=== PATIENT | female | born 1960 | race Caucasian/White ===

== ENCOUNTER 2019-03-19 10:19 | Inpatient (IN) ==
--- NOTE | 2019-03-19 11:19 | Emergency Department Note ---
Disposition Clinical Impression: Cellulitis of left foot Disposition: Admitted As Inpatient Condition: Fair Referrals: Bernardino Burkett MD [Primary Care Provider] - Forms: ED Satisfaction Letter Time of Disposition: 14:43 Extremity Problem HPI - General Chief complaint: ED Extremity Problem,Nontraumatic Stated complaint: Cellulitis L foot Time Seen by Provider: 03/19/19 10:58 Source: patient Limitations: no limitations Nursing Notes Reviewed: Yes Vital Signs Reviewed: Yes - History of Present Illness HPI Narrative: Patient is a 59-year-old female with past medical history of diabetes, previous left lower extremity TMA, cardiovascular disease. She presents from her skylights assembler Dr. Sloan's office where she was being seen regarding an open wound to her previous TMA site on her left lower extremity. He was concern for developing infection and sent her over to emergency department to be started on IV antibiotics and admitted to the hospital for tentative surgical debridement tomorrow. The patient states she noticed new redness around the wound today. She denies any pain at the site but states she does still have full sensation there. She denies fever, chills, lightheadedness, nausea or vomiting. She states she has been hospitalized for sepsis secondary to infection in this extremity before. Pain Scale: 0 - Related Data Home Medications Medication Instructions Recorded Confirmed Aspirin [Lo-Dose Aspirin EC] 81 mg PO DAILY 10/13/18 03/19/19 Insulin ASPART [Novolog Flexpen] 10 unit SQ TID 10/13/18 03/19/19 Insulin Glargine,Hum.rec.anlog 20 unit SQ HS 10/13/18 03/19/19 [Lantus Solostar] Allergies Allergy/AdvReac Type Severity Reaction Status Date / Time No Known Allergies Allergy Verified 10/13/18 10:19 All systems ED: reviewed and negative except as stated. Review of Systems: As Per HPI Past Medical History - Past Medical History Medical history: Reports: diabetes, hyperlipidemia, hypertension Surgical history: Reports: , cholecystectomy Psychiatric history: Reports: anxiety, depression - Social History Smoking Status: Never smoker Smokeless Tobacco Status: No Alcohol use: Reports: none Drug use: Reports: none Physical Exam - General Limitations: no limitations General appearance: alert, in no apparent distress - Head Head exam: atraumatic, normocephalic - Eye Eye exam: Present: normal appearance, PERRL, EOMI - Neck Neck exam: Present: normal inspection, full ROM - Chest Chest inspection: Present: normal inspection, symmetric chest wall rise - Respiratory Respiratory exam: Present: normal lung sounds bilaterally - Cardiovascular Cardiovascular exam: Present: regular rate, normal rhythm, normal heart sounds - Abdominal Exam Abdominal exam: Present: soft, Non-Tender - Expanded Lower Extremity Exam Lower leg exam: Present: normal inspection, tenderness (Mild tenderness to palpation to the left lower leg). Absent: swelling, deformity, erythema Ankle exam: Present: normal inspection, full ROM. Absent: tenderness, swelling, erythema Foot/toe exam: Present: other (The right lower extremity and foot is normal in appearance. The left lower extremity is status post transmetatarsal amputation to all 5 digits. There is a quarter-sized callus built up at the distal lateral aspect. There is a 1 cm a 1 cm area on the dorsal distal aspect of the foot with soft tissue extruding and several centimeters of surrounding erythema. The area is not tender to palpation but does have intact deep and light touch sensation intact. There is some fluctuance under the area of erythema.) Gait: not tested/not observed - Neurological Exam Neurological exam: Present: alert, oriented X3 - Skin Skin exam: Present: warm, dry Course Course Narrative: Patient presented with skin findings and wound at site of previous TMA that are concerning for cellulitis. We will order CBC, BMP, blood cultures, lactic acid and start with 1 L normal saline bolus. Once labs are back and renal function is determined anticipate CT of the left foot with or without contrast. We will then contact patient's skylights assembler Dr. Sloan to coordinate plan of care. - Reevaluation(s) Reevaluation #1: Spoke with the patient's skylights assembler to requested x-ray of the foot and initiation of vancomycin and Zosyn. CBC negative, BMP with mild hyponatremia which we will supplement with normal saline. Time: 12:40 Vital Signs Temperature 98.2 F 03/19/19 10:31 Pulse Rate 79 03/19/19 10:31 Respiratory Rate 18 03/19/19 10:31 Blood Pressure 174/88 03/19/19 10:31 O2 Sat by Pulse Oximetry 98 03/19/19 10:31 Temperature 98.2 F 03/19/19 10:31 Pulse Rate 75 03/19/19 12:12 Respiratory Rate 16 03/19/19 12:12 Blood Pressure 152/72 03/19/19 12:12 O2 Sat by Pulse Oximetry 99 03/19/19 12:12 Oxygen Delivery Oxygen Delivery Room Air Extremity Problem, Nontraumati - MDM Narrative Medical decision making narrative: Patient presented with concern for cellulitis, CBC negative, BMP with mild hyponatremia. X-ray of the left foot demonstrating soft tissue swelling and cortical lucencies possibly indicating cellulitis or osteomyelitis with MRI follow-up recommended. Based on patient's presentation and referral to emergency department by skylights assembler with tentative plan for surgery tomorrow admission to the hospital with initiation of IV antibiotics is the best plan for this patient. Discussed with the hospitalist to agree to admit the patient. - Lab Data Lab results reviewed: Yes I reviewed the patient's lab results. Result diagrams: 03/19/19 11:59 03/19/19 11:59 Lab Results 03/19/19 03/19/19 03/19/19 Range/Units 11:59 11:59 11:59 WBC 6.3 (4.3-11.1) K/mcL RBC 4.19 (3.82-4.97) M/mcL Hgb 12.4 (11.5-15.4) g/dL Hct 36.7 (35.3-44.9) % MCV 87.6 (83.0-100.0) fL MCH 29.6 (28.0-33.3) pg MCHC 33.8 (31.6-35.5) g/dL RDW 11.9 (11.5-14.5) % Plt Count 183 (140-400) K/mcL MPV 10.4 (9.4-12.4) fL Immature Gran % 0.5 (0-4) % Seg Neutrophils % 69.2 % Lymphocytes % 20.2 % Monocytes % 8.3 % Eosinophils % 1.3 % Basophils % 0.5 % Neutrophils # 4.4 (1.6-8.9) K/mcL Lymphocytes # 1.3 (0.6-4.6) K/mcL Monocytes # 0.5 (0.0-1.3) K/mcL Eosinophils # 0.1 (0.0-0.6) K/mcL Basophils # 0.0 (0.0-0.2) K/mcL Sodium 133 L (136-145) mEq/L Potassium 4.2 (3.5-5.1) mEq/L Chloride 100 (98-107) mEq/L Carbon Dioxide 26 (23-29) mEq/L BUN 25 H (6-20) mg/dL Creatinine 1.09 (0.60-1.20) mg/dL Est GFR ( Amer) > 60 (> 60) Est GFR (Non-Af Amer) 52 L (> 60) BUN/Creatinine Ratio 23 (6-26) Glucose 382 H (70-105) mg/dL Calculated Osmolality 296 (280-300) Lactic Acid 0.9 (0.5-2.2) mmol/L Calcium 9.7 (8.6-10.3) mg/dL - Radiology Data Radiology results reviewed: Yes I reviewed the patient's radiology results. Foot X-Ray 03/19/19 12:00 IMPRESSION: Worsening soft tissue swelling of the stump of the midfoot amputation with lucencies and cortical regularity involving the medial cuneiform suggesting possible osteomyelitis with cellulitis. MRI would better assess scratch the MRI would be more sensitive. D/ / Khari Aj MD / Khari Aj MD Interpreting Provider: Khari Aj MD Attestation Statement - Attestation Attestation: I, Ranjan Landeros DO, examined this patient [id number] and my medical decision-making was reviewed with Ozzy Workman PGY-1, Resident Physician. I agree with the documented findings, disposition and treatment plan as described except to the extent set forth below. I personally supervised and was present for the thomas/critical portions of the procedures completed by the resident documented below. Please see my progress notes for details.
[2019-03-19] MEDS ORDERED: 0.9 % Sodium Chloride 1,000 ML IVC ONE (11:32)
--- NOTE | 2019-03-19 11:42 | Emergency Department Note ---
Disposition Clinical Impression: Cellulitis of left foot Disposition: Admitted As Inpatient Condition: Fair Referrals: Bernardino Burkett MD [Primary Care Provider] - Forms: ED Satisfaction Letter Time of Disposition: 13:44 General Adult HPI - General Chief complaint: ED Extremity Problem,Nontraumatic Stated complaint: Cellulitis L foot Time Seen by Provider: 03/19/19 10:58 Source: patient Limitations: no limitations - History of Present Illness Pain Scale: 0 - Related Data Home Medications Medication Instructions Recorded Confirmed Aspirin [Lo-Dose Aspirin EC] 81 mg PO DAILY 10/13/18 03/19/19 Insulin ASPART [Novolog Flexpen] 10 unit SQ TID 10/13/18 03/19/19 Insulin Glargine,Hum.rec.anlog 20 unit SQ HS 10/13/18 03/19/19 [Lantus Solostar] Allergies Allergy/AdvReac Type Severity Reaction Status Date / Time No Known Allergies Allergy Verified 10/13/18 10:19 Past Medical History - Past Medical History Medical history: Reports: diabetes, hyperlipidemia, hypertension Surgical history: Reports: , cholecystectomy Psychiatric history: Reports: anxiety, depression - Social History Smoking Status: Never smoker Smokeless Tobacco Status: No Alcohol use: Reports: none Drug use: Reports: none Physical Exam - General Limitations: no limitations General appearance: alert, in no apparent distress Course Vital Signs Temperature 98.2 F 03/19/19 10:31 Pulse Rate 79 03/19/19 10:31 Respiratory Rate 18 03/19/19 10:31 Blood Pressure 174/88 03/19/19 10:31 O2 Sat by Pulse Oximetry 98 03/19/19 10:31 Temperature 98.2 F 03/19/19 10:31 Pulse Rate 75 03/19/19 12:12 Respiratory Rate 16 03/19/19 12:12 Blood Pressure 152/72 03/19/19 12:12 O2 Sat by Pulse Oximetry 99 03/19/19 12:12 Oxygen Delivery Oxygen Delivery Room Air Medical Decision Making - Lab Data Result diagrams: 03/19/19 11:59 03/19/19 11:59 Lab Results 03/19/19 03/19/19 03/19/19 Range/Units 11:59 11:59 11:59 WBC 6.3 (4.3-11.1) K/mcL RBC 4.19 (3.82-4.97) M/mcL Hgb 12.4 (11.5-15.4) g/dL Hct 36.7 (35.3-44.9) % MCV 87.6 (83.0-100.0) fL MCH 29.6 (28.0-33.3) pg MCHC 33.8 (31.6-35.5) g/dL RDW 11.9 (11.5-14.5) % Plt Count 183 (140-400) K/mcL MPV 10.4 (9.4-12.4) fL Immature Gran % 0.5 (0-4) % Seg Neutrophils % 69.2 % Lymphocytes % 20.2 % Monocytes % 8.3 % Eosinophils % 1.3 % Basophils % 0.5 % Neutrophils # 4.4 (1.6-8.9) K/mcL Lymphocytes # 1.3 (0.6-4.6) K/mcL Monocytes # 0.5 (0.0-1.3) K/mcL Eosinophils # 0.1 (0.0-0.6) K/mcL Basophils # 0.0 (0.0-0.2) K/mcL Sodium 133 L (136-145) mEq/L Potassium 4.2 (3.5-5.1) mEq/L Chloride 100 (98-107) mEq/L Carbon Dioxide 26 (23-29) mEq/L BUN 25 H (6-20) mg/dL Creatinine 1.09 (0.60-1.20) mg/dL Est GFR ( Amer) > 60 (> 60) Est GFR (Non-Af Amer) 52 L (> 60) BUN/Creatinine Ratio 23 (6-26) Glucose 382 H (70-105) mg/dL Calculated Osmolality 296 (280-300) Lactic Acid 0.9 (0.5-2.2) mmol/L Calcium 9.7 (8.6-10.3) mg/dL Attestation Statement - Attestation Attestation: I, Ranjan Landeros DO, examined this patient [id number] and my medical decision-making was reviewed with Ozzy Workman PGY-1, Resident Physician. I agree with the documented findings, disposition and treatment plan as described except to the extent set forth below. I personally supervised and was present for the thomas/critical portions of the procedures completed by the resident documented below. Please see my progress notes for details. 59-year-old female presents emergency room for evaluation of left foot infection. She was seen by her caterpillar tractor operator who this morning and recommended to come the emergency room for evaluation and admission for surgical intervention. She has had a partial foot amputation in the past at the midfoot. She has no toes left on the left foot. She has good pulses in the bilateral feet. She is currently denying fevers chills nausea vomiting or diarrhea. Does not have any headache or vision change. She has not fallen or injured herself. She denies any recent surgeries or surgical intervention. She has not been on any recent antibiotics. She is up-to-date on her tetanus. Vital signs are stable. Patient is alert she is oriented. Lungs are clear heart is regular. Extremities are normal outside the bilateral feet. Right lower sternal he has good pulses but very poor foot hygiene. There is no cracks ulcers or signs of deterioration the skin on the right foot. The left foot has anterior skin deterioration from what appears to be internal pressure from a bone as well as a lateral foot ulcer. She has no redness that extends away from the previous surgical site at this time. She has full range of motion the hips knees and ankles otherwise is normal. Patient will have labs including CBC chemistry ESR CRP along with CT imaging of the foot. Pulses are symmetrical and intact. She has normal sensation at least at baseline for her. Imaging labs and antibiotics will be ordered and resulted in an admission process to be established. Patient is otherwise clinically stable. Consultation with Dr. Dobbins will be completed and admission process to be established. See detailed documentation the physical exam, medical intervention, medical decision-making and disposition the resident physician's note. 1245 Patient has progressive swelling to the midfoot on x-ray. Labs otherwise unremarkable outside of the sodium at 133. No other immediate intervention is required. Patient will be discussed with the hospitals for admission MRI will be completed in the inpatient setting considering the patient is scheduled for surgery tomorrow. No other acute concerns or issues at this point. Admission process to be established. 1325 Patient was discussed with the hospitalist Dr. Mckee. Detailed review the presentation the symptoms and the recommendations from the caterpillar tractor operator were discussed at length. No other acute concerns or issues noted at this point. Patient is otherwise clinically stable. Patient will be monitored here in the emergency department as the admission process is completed for cellulitis to the left lower extremity requiring surgery.
[2019-03-19] MEDS ORDERED: Isovue-370 500 ML BOTTLE IVP ONE (11:43)
[2019-03-19 12:14] LABS: Basophils % 0.5 %; Eosinophils # 0.1 K/mcL (0.0-0.6); Eosinophils % 1.3 %; Hematocrit 36.7 % (35.3-44.9); Hemoglobin 12.4 g/dL (11.5-15.4); Immature Granulocytes % 0.5 % (0-4); Lymphocytes # 1.3 K/mcL (0.6-4.6); Lymphocytes % 20.2 %; Mean Corpuscular HGB Conc 33.8 g/dL (31.6-35.5); Mean Corpuscular Hemoglobin 29.6 pg (28.0-33.3); Mean Corpuscular Volume 87.6 fL (83.0-100.0); Mean Platelet Volume 10.4 fL (9.4-12.4); Monocytes # 0.5 K/mcL (0.0-1.3); Monocytes % 8.3 %; Neutrophils # 4.4 K/mcL (1.6-8.9); Platelet Count 183 K/mcL (140-400); Red Blood Count 4.19 M/mcL (3.82-4.97); Red Cell Distribution Width 11.9 % (11.5-14.5); Segmented Neutrophils % 69.2 %
[2019-03-19] MEDS ORDERED: Piperacillin/Tazobactam 3.375 GM in 0.9 % Sodium Chloride Mini Bag 100 ML IVPB ONE (12:19)
[2019-03-19 12:33] LABS: BUN/Creatinine Ratio 23 (6-26); Blood Urea Nitrogen 25 mg/dL (6-20); Calcium 9.7 mg/dL (8.6-10.3); Carbon Dioxide 26 mEq/L (23-29); Chloride 100 mEq/L (98-107); Glucose 382 mg/dL (70-105); Osmolality,Calculated 296 (280-300); Potassium 4.2 mEq/L (3.5-5.1); Sodium 133 mEq/L (136-145); eGFR For Non-African Americans 52 (> 60)
[2019-03-19] MEDS ORDERED: Gadolinium Contrast Agent (WT Based) IV PRN (13:28)
[2019-03-19] MEDS ORDERED: Acetaminophen 325 MG TABLET PO PRN (15:01)
[2019-03-19] MEDS ORDERED: *HR* HYDROcodone/Acet 5/325 mg TABLET PO PRN (15:01)
[2019-03-19] MEDS ORDERED: Naloxone 0.4 MG/ML INJ IVP PRN (15:01)
[2019-03-19] MEDS ORDERED: Ondansetron ODT 4 MG TAB.RAPDIS SL PRN (15:01)
[2019-03-19] MEDS ORDERED: Dextrose Gel 15 GM/37.5 ML TUBE PO PRN ×2 (15:06)
[2019-03-19] MEDS ORDERED: *HR* Dextrose 50 % in Water (Syg) 50 ML SYRINGE IVP PRN (15:06)
[2019-03-19] MEDS ORDERED: D5% in Water 1,000 ML IVC PRN (15:06)
--- NOTE | 2019-03-19 15:26 | Internal Med History&Physical ---
Date of Encounter: 03/19/19 Time of Encounter: 15:22 Internal Medicine - H&P: HPI Chief complaint: Left foot abscess Admitted From: Emergency Dept Plans for Post Hospital Care: Home History of present illness: Ms. Amaya is a 59 year old female with known past medical history of type II diabetes, recurrent foot ulcers with s/p left lower extremity TMA, who recently had abnormal stress test found to have during recent pre op work up pt who follows with painting contractor Dr. Sloan for her Left foot ulcer, now she was sent our ER from Dr. Sloan's office since he was concerned baout foot abscess and possible osteomyelitis. Here in the ED her MRI of Foot showed Cellulitis of the soft tissue stump with abscesses along the distal aspect of the soft tissue stump, the largest measuring 2.5 x 1.3 x 1.2 cm. The smaller abscess measuring 5 x 5 x 9 mm appears to drain to the skin surface. She denied any CP . SOB. Denied any Foot pain. Past Med Surg Social Fam HX - Past Medical History Medical history: diabetes, hyperlipidemia, hypertension Psychiatric history: anxiety, depression - Past Surgical History Surgical History: , cholecystectomy Additional surgical history: toes amputated to left foot (L transmet amputation); L ear surgery - Social History Smoking Status: Never smoker Smokeless Tobacco Status: No Alcohol use: none Drug use: none - Family History Mother Living Status: Hx Family Endocrine Disorder: No (Diabetes.) Brother Living Status: Still Living Hx Family Endocrine Disorder: Yes (Diabetes) Maternal Grandfather Living Status: Hx Family Cardiac Disorders: Yes (HTN) Hx Family Endocrine Disorder: Yes (Diabetes) Internal Medicine - H&P: Meds Aspirin [Lo-Dose Aspirin EC] 81 mg PO DAILY 10/13/18 [History] Insulin ASPART [Novolog Flexpen] 10 unit SQ TID 10/13/18 [History] Insulin Glargine,Hum.rec.anlog [Lantus Solostar] 20 unit SQ HS 10/13/18 [History] Allergy/AdvReac Type Severity Reaction Status Date / Time No Known Allergies Allergy Verified 10/13/18 10:19 All Systems PM: A 10-system review of systems was performed and is negative for pertinent findings except as documented above in the HPI. Review of systems: All the systems are reviewed everything is benign except the systems and symptoms I mentioned in the history of present illness - Constitutional Vitals: Temp Pulse Resp BP Pulse Ox 98.2 F 75 16 152/72 99 03/19/19 10:31 03/19/19 12:12 03/19/19 12:12 03/19/19 12:12 03/19/19 12:12 General appearance: Present: cooperative, A&O X 3, no acute distress, answers questions appropriately Exam: a - Head Head exam: Present: atraumatic, normal inspection - Neck Neck exam general surgery: Present: supple - Respiratory Respiratory exam: Present: decreased breath sounds. Absent: rales, respiratory distress, rhonchi, wheezes - Cardiovascular Cardiovascular exam: Present: RRR, +S1, +S2. Absent: tachycardia - GI/Abdominal GI/Abdominal exam: Present: normal bowel sounds, soft. Absent: rebound, rigid, tenderness - Extremities Exam Extremities exam: Present: pedal edema. Absent: calf tenderness, tenderness Additional comments: Moderate swelling, erythema with no open wound noticed over Leftt foot stump on lateral side. No ulcers noticed over Rt leg - Back Exam Back exam: Absent: CVA tenderness (L), CVA tenderness (R) - Neurological Exam Neurological exam: Present: alert, oriented X3 - Psychiatric Psychiatric exam: Present: normal affect, normal mood - Skin Skin exam: Absent: rash Internal Med - H&P Results - Labs CBC & Chem 7: 03/19/19 11:59 03/19/19 11:59 Labs: Short CBC 03/19/19 Range/Units 11:59 WBC 6.3 (4.3-11.1) K/mcL Hgb 12.4 (11.5-15.4) g/dL Hct 36.7 (35.3-44.9) % Plt Count 183 (140-400) K/mcL Neutrophils # 4.4 (1.6-8.9) K/mcL BMP 03/19/19 11:59 Sodium 133 L Potassium 4.2 Chloride 100 Carbon Dioxide 26 BUN 25 H Creatinine 1.09 Glucose 382 H Calcium 9.7 - Impressions ITS Impressions Foot X-Ray 03/19/19 12:00 IMPRESSION: Worsening soft tissue swelling of the stump of the midfoot amputation with lucencies and cortical regularity involving the medial cuneiform suggesting possible osteomyelitis with cellulitis. MRI would better assess scratch the MRI would be more sensitive. D/ / Khari Aj MD / Khari Aj MD Interpreting Provider: Khari Aj MD Foot MRI 03/19/19 13:28 IMPRESSION: Postsurgical changes status post amputation of the forefoot at the level of the tarsometatarsal articulations. Cellulitis of the soft tissue stump with abscesses along the distal aspect of the soft tissue stump, the largest measuring 2.5 x 1.3 x 1.2 cm. The smaller abscess measuring 5 x 5 x 9 mm appears to drain to the skin surface. Findings consistent with osteomyelitis of the medial cuneiform, intermediate cuneiform and navicular bone with erosive changes and cortical destruction of the medial cuneiform bone. D/ / 03/19/2019 14:55:58 Khari Aj MD / [facility] Interpreting Provider: Khari Aj MD - Assessment and Plan (1) Osteomyelitis of left foot Current Visit: Yes Status: Acute Assessment and plan: Reviewed MRI of Foot showed : Cellulitis of the soft tissue stump with abscesses along the distal aspect of the soft tissue stump, the largest measuring 2.5 x 1.3 x 1.2 cm. The smaller abscess measuring 5 x 5 x 9 mm appears to drain to the skin surface. Concerning for osteomyelitis Electric Razor Mechanic consulted..Possible OR in AM She did have abnormal stress test recently Consulted Cardiology for card clearance Check ESR and CRP on broad spec abx Zosyn and Vanc Qualifiers: Osteomyelitis type: unspecified type Qualified Code(s): M86.9 - Osteomyel itis, unspecified (2) Foot abscess, left Current Visit: Yes Status: Acute (3) Cellulitis of left foot Current Visit: Yes Status: Acute (4) Abnormal stress test Current Visit: Yes Status: Acute Assessment and plan: Reviewed recent stress test done as an out pt on 03/05/19 Large sized, moderate to severe intensity, primarily fixed inferior, inferolateral, and inferoseptal perfusion defect suggestive of a prior infarct. There is mild mandy-infarct ischemia involving the inferior and inferolateral segments Consulted card for further follow up NPO after mid night EKG now (5) Diabetes Current Visit: No Status: Acute Assessment and plan: on ISS and Levemir ADA diet cont home regimen Lispro 10 U TID Qualifiers: Diabetes mellitus type: type 2 Diabetes mellitus m[facility] insulin use: with remote computer terminal operator use Diabetes mellitus complication status: with skin complications Diabetes mellitus complication detail: with foot ulcer Qualified Code(s): E11.621 - Type 2 diabetes mellitus with foot ulcer; L97.509 - Non-pressure chronic ulcer of other part of unspecified foot with unspecified severity; Z79.4 - intermodal owner operator truck driver (current) use of insulin - Time Spent With Patient Total time spent is greater than 50% in coordination of care (as documented) at patient's floor/unit and/or counseling patient:
[2019-03-19 18:06] LABS: Estimated Average Glucose 335 mg/dl; Hemoglobin A1C 13.3 %
[2019-03-19] MEDS: Piperacillin/Tazobactam 3.375 GM in 0.9 % Sodium Chloride Mini Bag 100 ML IVP SCH (19:10)
[2019-03-19] MEDS: *HR* Heparin 5,000 UNIT/ML VIAL SQ SCH (19:11)
[2019-03-19] MEDS: Insulin LISPRO 300 UNITS/3 ML VIAL SQ SCH ×3 (19:22→21:31)
--- NOTE | 2019-03-19 20:39 | Anesthesia Evaluation PreOp ---
Date of Encounter: 03/19/19 Time of Encounter: 20:37 - Past History Planned Operation: I&D L-foot Cardiac History: ME (NSTEMI 10/2018 - Pt encouraged to have Cardiac work up at that time but Pt was nervous and wanted to get it performed as an Outpt. Stess test ultimately performed 03/05/2019 revealed decreased LVEF from approximately 50% then to 39% now. Pt does not demonstrate full understanding of the nature of her Coronary disease or risk factors.), HTN (Denies), Hyperlipidemia (Denies) Pulmonary History: Denies Any Significant HX BRIM PRESSER History: Other (Anxiety/Depression) Other Medical History: Diabetes Type II (Uncontrolled/Poorly controlled DM) Anesthesia History: No Prior Anesthetic Complications, Past Anesthesia (C- section, Hanny, L-foot TransMetatarsal Amputation, L-ear surgery) Alcohol Use: none Drug use: none Medications and Allergies Aspirin [Lo-Dose Aspirin EC] 81 mg PO DAILY 10/13/18 [History] Insulin ASPART [Novolog Flexpen] 10 unit SQ TID 10/13/18 [History] Insulin Glargine,Hum.rec.anlog [Lantus Solostar] 20 unit SQ HS 10/13/18 [History] Allergy/AdvReac Type Severity Reaction Status Date / Time No Known Allergies Allergy Verified 10/13/18 10:19 - Meds/Allergy Pre-op Review Medications Reviewed: Yes Allergies Reviewed: Yes Beta Blockers on Current Med List: No Anesthesia Results - Labs 03/19/19 11:59 03/19/19 11:59 Laboratory Tests Laboratory Tests 03/19/19 11:59 Est Mean Plasma Glucose 335 Hemoglobin A1c 13.3 H 03/19/19 11:59 Est GFR (Non-Af Amer) 52 L Impressions Foot X-Ray 03/19/19 12:00 IMPRESSION: Worsening soft tissue swelling of the stump of the midfoot amputation with lucencies and cortical regularity involving the medial cuneiform suggesting possible osteomyelitis with cellulitis. MRI would better assess scratch the MRI would be more sensitive. D/ / Khari Aj MD / Khari Aj MD Interpreting Provider: Khari Aj MD Foot MRI 03/19/19 13:28 IMPRESSION: Postsurgical changes status post amputation of the forefoot at the level of the tarsometatarsal articulations. Cellulitis of the soft tissue stump with abscesses along the distal aspect of the soft tissue stump, the largest measuring 2.5 x 1.3 x 1.2 cm. The smaller abscess measuring 5 x 5 x 9 mm appears to drain to the skin surface. Findings consistent with osteomyelitis of the medial cuneiform, intermediate cuneiform and navicular bone with erosive changes and cortical destruction of the medial cuneiform bone. D/ / 03/19/2019 14:55:58 Khari Aj MD / [facility] Interpreting Provider: Khari Aj MD Laboratory Results - Imaging EKG: report reviewed (84bpm - SINUS RHYTHM POSSIBLE LEFT ATRIAL ENLARGEMENT INFERIOR MYOCARDIAL INFARCTION, OF INDETERMINATE AGE Electronically Signed On 10-15-2018 21:19:19 EST by Femi Ferraro) Additional studies: Nuclear Stress 03/05/2019 Impression: Pharmacologic stress ECG is negative for ischemia at level of heart rate achieved. Gated EF = 39%. The left ventricle is dilated. LVEDV = 153 mL. Large sized, moderate to severe intensity, primarily fixed inferior, inferolateral, and inferoseptal perfusion defect suggestive of a prior infarct. There is mild mandy-infarct ischemia involving the inferior and inferolateral segments, SDS 5. Medium to large sized, severe intensity to absent perfusion defect involving the apical segments and apex suggestive of a prior infarct. Findings suggests obstructive multi-vessel CAD. Anesthesia Exam Vital Signs Temp Pulse Resp BP Pulse Ox 03/19/19 19:40 98.4 F 85 18 151/82 95 03/19/19 17:35 98.1 F 80 21 164/89 99 03/19/19 15:56 88 145/119 03/19/19 12:12 75 16 152/72 99 03/19/19 10:31 98.2 F 79 18 174/88 98 Intake and Output 03/19/19 03/19/19 03/19/19 07:59 15:59 23:59 Intake Total 1350 / 1470 120 / 1470 Balance 1350 / 1470 120 / 1470 Intake: IV Fluids 1350 / 1350 0.9 % Sodium Chloride 1,000 ML 1000 / 1000 @ 999 mls/hr IVC .Q1H1M ONE Rx# :[id number] Zosyn 3.375 GM In 0.9 % Sodium 100 / 100 Chloride (Mini-Bag +) 100 ML @ 25 mls/hr IVPB ONCE ONE Rx#: [id number] Vancocin 1,250 MG In 0.9 % 250 / 250 Sodium Chloride 250 ML @ 166.67 mls/hr IVPB Q12H SUDHIR Rx#: [id number] Oral 120 / 120 Other: Meal Dinner Percent of Meal Consumed 25% Weight 88.904 kg 97.7 kg Blood Glucose* 458 Patient Weight 03/19/19 23:59 Weight 97.7 kg Height: 5'3" Weight: 215# BMI = 38 NPO (# of Hours): MNoc - HEENT Pupil (Motor): Pupils equal, EOMI Mallampati: III Teeth: Missing, Poor dentition Oral Opening: Greater than 3 - BRIM PRESSER LOC: Oriented BRIM PRESSER Motor: Normal RUE, Normal LUE, Normal RLE, Normal LLE, Normal Face BRIM PRESSER Sensory: Normal: RUE, LUE, RLE, LLE, Face - Cardiac Rhythm: Regular Murmur: None - Pulmonary Breath Sounds: bilateral Clear Respiratory Effort: Symmetrical Anesthesia Assess/Plan ASA Score: 4 (Obesity/BmI = 38, Uncontrolled DM) Level of consciousness: Cooperative, Oriented Anesthetic Plan: General (Pt prefers to NOT have GA if possible. She prefers to have only sedation if possible.), MAC Monitoring Plan: Standard Monitors Recovery Plan: PACU Anes Supervising Prov Stmt: Pt seen/evaluated, R&B Discussed, questions answered and consent obtained. Valeria Marroquin MD
[2019-03-19] MEDS: Insulin DETEMIR 100 UNIT/ML X5UNITS SQ SCH (21:31)
[2019-03-20] MEDS: Piperacillin/Tazobactam 3.375 GM in 0.9 % Sodium Chloride Mini Bag 100 ML IVP SCH ×3 (03:07→17:35)
[2019-03-20] MEDS: *HR* Heparin 5,000 UNIT/ML VIAL SQ SCH (05:54)
[2019-03-20] MEDS ORDERED: Vancomycin 1,000 MG, Sodium Chloride IRRigation 1,000 ML IR ONE (06:00)
[2019-03-20 07:15] LABS: Basophils % 0.4 %; Eosinophils # 0.2 K/mcL (0.0-0.6); Hematocrit 33.1 % (35.3-44.9); Hemoglobin 11.2 g/dL (11.5-15.4); Immature Granulocytes % 0.4 % (0-4); Lymphocytes # 0.8 K/mcL (0.6-4.6); Lymphocytes % 15.3 %; Mean Corpuscular HGB Conc 33.8 g/dL (31.6-35.5); Mean Corpuscular Hemoglobin 29.2 pg (28.0-33.3); Mean Corpuscular Volume 86.2 fL (83.0-100.0); Mean Platelet Volume 10.1 fL (9.4-12.4); Monocytes # 0.5 K/mcL (0.0-1.3); Monocytes % 10.8 %; Neutrophils # 3.5 K/mcL (1.6-8.9); Platelet Count 155 K/mcL (140-400); Red Blood Count 3.84 M/mcL (3.82-4.97); Segmented Neutrophils % 70.1 %
--- NOTE | 2019-03-20 08:47 | Podiatry Consult Note ---
Date of Encounter: 03/20/19 Time of Encounter: 08:43 Assessment and Plan (1) Foot abscess, left Current visit: Yes Status: Acute Assessment: Perez grade 2 ulceration distal TMA Erythema noted to surrounding tissue, warm to touch, foul odor noted Maceration noted to periwound area DTI noted to medial aspect of TMA WBC 5.0, afebrile, ESR 63, patient does not appear to have symptoms of sepsis MRI showed abscesses measuring 2.5 x 1.3 x 1.2 cm and 5 x 5 x 9 mm Plan: Keep NPO Cardiology consulted for preop clearance Plan for OR this evening or tomorrow, will discuss with surgeon Cleansed with 0.9 NS Painted maceration with betadine, covered with 4x4 dry gauze, kerlix, and secured with medipore tape Impression: MR/MR foot LT wo con IMPRESSION: Postsurgical changes status post amputation of the forefoot at the level of the tarsometatarsal articulations. Cellulitis of the soft tissue stump with abscesses along the distal aspect of the soft tissue stump, the largest measuring 2.5 x 1.3 x 1.2 cm. The smaller abscess measuring 5 x 5 x 9 mm appears to drain to the skin surface. Findings consistent with osteomyelitis of the medial cuneiform, intermediate cuneiform and navicular bone with erosive changes and cortical destruction of the medial cuneiform bone. D/ / 03/19/2019 14:55:58 Khari Aj MD / [facility] Interpreting Provider: Khari Aj MD History of Present Illness HPI: Ms. Amaya is a 59 year old female who presented to the ER last evening from the podiatry office. Patient has a PMH of DM II, neuropathy, and recurrent foot ulcers with s/p left lower extremity TMA. Patient is known to the podiatry group and follows with Dr. Lee. Briefly, patient has been following for a non healing wound of left lower extremity. Patient was taken to surgery on 10/16/2018 for incision and drainage left foot wound infection to level of deep fascia. Patient has since had continued delayed healing of wound. Patient came to the office on 03/19/19 for follow up appointment and was found to having worsening drainage and erythema. Upon ER evaluation, xray was concerning for OM with cellulitis. MRI was completed which showed, abscesses along the distal aspect of the soft tissue stump measuring 2.5 x 1.3 x 1.2 cm and 5 x 5 x 9 mm. Also concerning for OM of the medial cuneiform, intermediate cuneiform and navicular bone with erosive changes and cortical destruction of the medial cuneiform bone. WBC 6.3, afebrile, HGB A1C 13.3, ESR 63, CRP 12. Patient denies any fevers, chills, nausea, vomiting, or diarrhea. Denies any calf pain, chest pain, or shortness of breath. Patient states she has had nothing to eat since Sunday evening. Discussed with patient plan for surgical intervention. Patient agre eable. No other questions or concerns at this time. Past Med Surg Social Fam HX - Past Medical History Medical history: diabetes, hyperlipidemia, hypertension Psychiatric history: anxiety, depression - Past Surgical History Surgical History: , cholecystectomy Additional surgical history: toes amputated to left foot (L transmet amputa tion); L ear surgery - Social History Smoking Status: Never smoker Smokeless Tobacco Status: No Alcohol use: none Drug use: none - Family History Mother Living Status: Hx Family Endocrine Disorder: No (Diabetes.) Brother Living Status: Still Living Hx Family Endocrine Disorder: Yes (Diabetes) Maternal Grandfather Living Status: Hx Family Cardiac Disorders: Yes (HTN) Hx Family Endocrine Disorder: Yes (Diabetes) Medications and Allergies Aspirin [Lo-Dose Aspirin EC] 81 mg PO DAILY 10/13/18 [History] Insulin ASPART [Novolog Flexpen] 10 unit SQ TID 10/13/18 [History] Insulin Glargine,Hum.rec.anlog [Lantus Solostar] 20 unit SQ HS 10/13/18 [History] Allergy/AdvReac Type Severity Reaction Status Date / Time No Known Allergies Allergy Verified 10/13/18 10:19 All Systems Reviewed: The remainder of the systems were reviewed and are negative - Constitutional Constitutional: no fever(s) - Cardiovascular Cardiovascular: leg ulcers, pedal edema, no chest pain, no dyspnea - Respiratory Respiratory: no cough, no dyspnea - Musculoskeletal Musculoskeletal: numbness, tingling Physical Exam - Constitutional Vitals: Temp Pulse Resp BP Pulse Ox 98.2 F 80 18 148/82 96 03/20/19 06:41 03/20/19 06:41 03/20/19 06:41 03/20/19 06:41 03/20/19 06:41 Exam: Constitiutional: Alert and oriented x 3. Well nourished. No acute distress noted Vascular: 1/4 DP/PT LLE, L TMA, warm to warm from tibia to midfoot LLE, no calf pain with squeeze Neurologic: Positive light touch and pinprick test, normal plantar response, Normal position sense dorsiflexion/plantar flexion Dermatologic: Perez grade 2 ulceration distal TMA, Erythema noted to surrounding tissue, warm to touch, foul odor noted, Maceration noted to periwound area Musculoskeletal: 3/5 muscle strength and normal tone LLE - ENT ENT exam: Present: TM's normal bilaterally Results - Labs Result Diagrams: 03/20/19 06:54 03/20/19 06:54 Labs: Abnormal lab results Hgb 11.2 g/dL (11.5-15.4) L 03/20/19 06:54 Hct 33.1 % (35.3-44.9) L 03/20/19 06:54 ESR 63 mm/hr (0-15) H 03/20/19 06:54 Sodium 133 mEq/L (136-145) L 03/19/19 11:59 BUN 25 mg/dL (6-20) H 03/19/19 11:59 Est GFR (Non-Af Amer) 52 (> 60) L 03/19/19 11:59 Glucose 382 mg/dL (70-105) H 03/19/19 11:59 POC Glucose 226 mg/dL (70-99) H 03/20/19 05:54 13.3 % (-5.6) H 03/19/19 11:59 H & H 03/19/19 03/20/19 Range/Units 11:59 06:54 Hgb 12.4 11.2 L (11.5-15.4) g/dL Hct 36.7 33.1 L (35.3-44.9) % All other labs normal. - Diagnostic results Ankle/Foot x-ray: report reviewed Ankle/Foot MRI: report reviewed Consult Discharge Plan - Plan Instructions: Cellulitis (GEN), Diabetic Foot Care (DC), Diabetes Mellitus Type 2 in Adults (DC), Basic Carbohydrate Counting (DC), Acute Wound Care (DC), Diabetic Foot Ulcers (DC) Referrals: Bernardino Burkett MD [Primary Care Provider] -
[2019-03-20 08:49] LABS: BUN/Creatinine Ratio 16 (6-26); Blood Urea Nitrogen 17 mg/dL (6-20); Carbon Dioxide 23 mEq/L (23-29); Glucose 223 mg/dL (70-105); Magnesium 1.7 mg/dL (1.6-2.6); eGFR For Non-African Americans 55 (> 60)
[2019-03-20 09:00] LABS: C-Reactive Protein 12 mg/L (Less than 10); Chloride 107 mEq/L (98-107); Osmolality,Calculated 296 (280-300); Potassium 3.8 mEq/L (3.5-5.1); Sodium 139 mEq/L (136-145)
--- NOTE | 2019-03-20 09:02 | Electrocardiograph Report ---
[place] [id number] Test Date: 2019-03-19 Pat Name: Margi Amaya Department: EXAMC2 Room: [facility] Gender: F Hockey Instructor: : 1960 Requested By: Jayshree Hall Order Number: [id number] Reading MD: Odilia Keyes Measurements Intervals [place] Rate: 87 P: 33 ND: 155 QRS: 57 QRSD: 105 T: 40 QT: 389 QTc: 468 Interpretive Statements Sinus rhythm Probable left atrial enlargement Baseline artifact Electronically Signed On 03-20-2019 9:00:57 EDT by Odilia Keyes
[2019-03-20] MEDS: Insulin LISPRO 300 UNITS/3 ML VIAL SQ SCH ×5 (09:23→21:18)
[2019-03-20] MEDS: Aspirin Enteric Coated 81 MG Tablet PO SCH (09:28)
--- NOTE | 2019-03-20 11:58 | Cardiology Consult Note ---
Date of Encounter: 03/20/19 Time of Encounter: 09:00 Assessment and Plan (1) Foot abscess, left Current Visit: Yes Status: Acute Per cardiology: -Admitted with worsening foot abscess. -Management per primary and podiatry services. (2) Preop cardiovascular exam Current Visit: Yes Status: Acute Per cardiology: -Preop risk assessment for podiatry surgery. -Patient with recent NSTEMI 10/2018, patient refused LHC. TTE that admission with LVEF mildly reduced, wall motion abnormalities noted. -No acute ischemic ECG changes noted. -Stress 03/2019 with Gated EF = 39%. The left ventricle is dilated. LVEDV = 153 mL. Large sized, moderate to severe intensity, primarily fixed inferior, inferolateral, and inferoseptal perfusion defect suggestive of a prior infarct. There is mild mandy-infarct ischemia involving the inferior and inferolateral segments, SDS 5. Medium to large sized, severe intensity to absent perfusion defect involving the apical segments and apex suggestive of a prior infarct. Findings suggests obstructive multi-vessel CAD. -Denies chest pain, shortness of breath. -Poor functional capacity. -Recommend LHC prior to surgery, however patient refusing. Patient wishes to proceed with surgery. With markedly abnormal stress test, reduced LVEF with wall motion abnormalities, and poor functional capacity, patient would be at high risk for cardiovascular complications in the mandy-operative time period. Discussed at length with patient and family. Patient does state that she would be agreeable to LHC after surgery. Discussion w patient/family: The assessment and plan as outlined above was discussed with the patient and/or family members who expressed understanding and agreement. All questions were answered. Thank you for involving us in the care of your patient. Please call with any questions. Discussed and reviewed with . History of Present Illness Consult date: 03/19/19 Requesting physician: Jayshree Hall Consult reason: preop Chief complaint: foot pain History of present illness: Ms. Amaya is a 59 year old female with a relevant past medical history of DM, neuropathy, partial amputation of left foot, who presented to outpatient podi atry appt and was noted to have worsening foot infection and was recommended for ER evaluation. Cardiology has been consulted for preop risk stratification. Patient denies chest pain. Denies shortness of breath. Reports fatigue. Reports is wheelchair bound at home. Past Med Surg Social Fam HX - Past Medical History Attestation: Yes The following information was validated with the patient. Source: patient, old records reviewed Medical history: diabetes, hyperlipidemia, hypertension Psychiatric history: anxiety, depression - Past Surgical History Surgical History: , cholecystectomy Additional surgical history: toes amputated to left foot (L transmet amputation); L ear surgery - Social History Smoking Status: Never smoker Smokeless Tobacco Status: No Alcohol use: none Drug use: none - Family History Mother Living Status: Hx Family Endocrine Disorder: No (Diabetes.) Brother Living Status: Still Living Hx Family Endocrine Disorder: Yes (Diabetes) Maternal Grandfather Living Status: Hx Family Cardiac Disorders: Yes (HTN) Hx Family Endocrine Disorder: Yes (Diabetes) Medications and Allergies Aspirin [Lo-Dose Aspirin EC] 81 mg PO DAILY 10/13/18 [History] Insulin ASPART [Novolog Flexpen] 10 unit SQ TID 10/13/18 [History] Insulin Glargine,Hum.rec.anlog [Lantus Solostar] 20 unit SQ HS 10/13/18 [History] Allergy/AdvReac Type Severity Reaction Status Date / Time No Known Allergies Allergy Verified 10/13/18 10:19 All Systems Review: The remainder of the systems were reviewed and are negative - Constitutional Constitutional: fatigue - Cardiovascular Cardiovascular: as per HPI Physical Examination Vital Signs, Last 4 Hours Temp Pulse Resp BP Pulse Ox 03/20/19 10:33 98.1 F 74 18 141/87 96 03/20/19 09:15 97 General: Conversant, No Apparent Distress HEENT: Atraumatic, Normocephaly, Mucus Membranes Moist Neck: No JVD, Normal carotid pulses Cardiac: Reg Rate and Rhythm, Normal S1 and S2, No Murmur Lungs: Normal Breath Sounds, No Wheeze, Rales, Rhonchi Neuro: Alert and responsive, No focal deficits noted Abdomen: Soft, Non-Tender Skin: No rashes noted on visualized skin Musculoskeletal: No Chest Wall Tenderness Extremities: No Clubbing, No Cyanosis, No Edema, Normal Pulses, Other (Left foot dressing noted. ) Results 03/20/19 06:54 03/20/19 06:54 Lab Results Impressions Foot X-Ray 03/19/19 12:00 IMPRESSION: Worsening soft tissue swelling of the stump of the midfoot amputation with lucencies and cortical regularity involving the medial cuneiform suggesting possible osteomyelitis with cellulitis. MRI would better assess scratch the MRI would be more sensitive. D/ / Khari Aj MD / Khari Aj MD Interpreting Provider: Khari Aj MD Foot MRI 03/19/19 13:28 IMPRESSION: Postsurgical changes status post amputation of the forefoot at the level of the tarsometatarsal articulations. Cellulitis of the soft tissue stump with abscesses along the distal aspect of the soft tissue stump, the largest measuring 2.5 x 1.3 x 1.2 cm. The smaller abscess measuring 5 x 5 x 9 mm appears to drain to the skin surface. Findings consistent with osteomyelitis of the medial cuneiform, intermediate cuneiform and navicular bone with erosive changes and cortical destruction of the medial cuneiform bone. D/ 03/19/2019 14:55:58 Khari Aj MD / [facility] Interpreting Provider: Khari Aj MD Active Medications Acetaminophen (Tylenol) 650 mg PO Q6HR PRN PRN Reason: Mild Pain/Fever Stop: 09/18/19 15:02 Hydrocodone Bitart/Acetaminophen ([place] 5-325 Mg) 1 tab PO Q6HR PRN PRN Reason: Moderate Pain Stop: 09/18/19 15:02 Aspirin (Aspirin Ec) 81 mg PO DAILY SUDHIR Stop: 09/19/19 09:01 Last Admin: 03/20/19 09:28 Dose: 81 mg Documented by: Dextrose/Water (Dextrose 50% (Syg)) 25 ml IVP AD PRN PRN Reason: Hypoglycemia Stop: 09/18/19 15:07 Docusate Sodium (Colace) 100 mg PO BID PRN PRN Reason: Constipation Stop: 09/18/19 21:01 Gadobutrol (Gadolinium Contrast Agent (Wt Based)) 1 each IV ONCE PRN; Protocol PRN Reason: SEE COMMENTS Stop: 03/21/19 13:29 Glucagon (Glucagen) 1 mg IM ONCE PRN PRN Reason: Hypoglycemia Stop: 09/18/19 15:07 Glucose (Gluctose) 15 gm PO ONCE PRN PRN Reason: Hypoglycemia Stop: 09/18/19 15:07 Glucose (Gluctose) 30 gm PO ONCE PRN PRN Reason: Hypoglycemia Stop: 09/18/19 15:07 Heparin Sodium (Porcine) (Heparin) 5,000 unit SQ Q12HR SUDHIR Stop: 09/18/19 18:01 Last Admin: 03/20/19 05:54 Dose: 5,000 unit Documented by: Piperacillin Sod/Tazobactam (Sod 3.375 gm/ Sodium Chloride) 100 mls @ 25 mls/hr IVP Q8H SUDHIR Stop: 09/18/19 18:01 Last Admin: 03/20/19 09:29 Dose: 25 mls/hr Documented by: Dextrose (Dextrose 5%) 1,000 mls @ 100 mls/hr IVC .Q10H PRN PRN Reason: HYPOGLYCEMIA Stop: 09/18/19 15:07 Vancomycin HCl 1,250 mg/ (Sodium Chloride) 250 mls @ 166.667 mls/hr IVPB Q12H [facility] Stop: 09/19/19 13:01 Insulin Detemir (Levemir) 20 unit SQ HS [facility] Stop: 09/18/19 21:01 Last Admin: 03/19/19 21:31 Dose: 20 unit Documented by: Insulin Human Lispro (Humalog) 10 units SQ TIDWM [facility] Stop: 09/18/19 17:01 Last Admin: 03/20/19 09:23 Dose: Not Given Documented by: Insulin Human Lispro (Humalog) 0 units SQ HS [facility]; Protocol Stop: 09/18/19 21:01 Last Admin: 03/19/19 21:31 Dose: 8 units Documented by: Insulin Human Lispro (Humalog) 0 units SQ TIDAC [facility]; Protocol Stop: 09/18/19 16:31 Last Admin: 03/20/19 11:26 Dose: 6 units Documented by: Naloxone HCl (Narcan) 0.4 mg IVP Q2MPRN PRN PRN Reason: SEE COMMENTS Stop: 09/18/19 15:02 Ondansetron HCl (Zofran Odt) 4 mg SL Q8HR PRN PRN Reason: Nausea And Vomiting Stop: 09/18/19 15:02 Laboratory Tests 03/20/19 03/20/19 06:54 06:54 Hgb 11.2 L Creatinine 1.04 - Imaging and Cardiology Stress Test: report reviewed Echo: pending, report reviewed - EKG Interpretation EKG results cardiology: personally reviewed (ECG with SR, HR 87.) Consult Discharge Plan - Plan Referrals: Bernardino Burkett MD [Primary Care Provider] -
--- NOTE | 2019-03-20 14:13 | Internal Med Progress Note ---
<Annalisa Park - Last Filed: 03/20/19 16:37> Hospitalist Progress Note - Encounter Date of Encounter: 03/20/19 Time of Encounter: 09:45 - Subjective Interval History: Patient seen and examined at bedside today. She states she is doing well, she denies pain in her left lower extremity. She is anxious about her surgery and admits to being hungry. We discussed recent abnormal stress test, and she will see cardiology for risk assessment. She states that she had her transmetatarsal amputation initially in 2016 and then she had a revision 10/2018. She admits to some bilateral lower extremity neuropathy secondary to her uncontrolled diabetes. She denies nausea, vomiting, fever, chills, chest pain, shortness of breath, exertional chest pain or exertional shortness breath, abdominal pain, diarrhea, constipation, melena, hematochezia, dysuria, hematuria, edema. - Exam Vitals: Temp Pulse Resp BP Pulse Ox 98.1 F 74 18 141/87 96 03/20/19 10:33 03/20/19 10:33 03/20/19 10:33 03/20/19 10:33 03/20/19 10:33 Exam: Gen: Vitals noted. No acute distress, pleasant. AAOx3 HEENT: PERRL/EOMI, oropharynx clear, Normocephalic, atraumatic, MMM. Poor dentition. Cardiac: RRR, no murmur, +S1/S2, radial and dorsal pedis pulses 3+ and sy mmetrical Pulmonary: CTA bilaterally, no wheezes, rales or rhonchi, equal chest expansion Abdomen: soft, nontender, BS noted, no guarding, no rebound. MSK: ROM intact, no joint swelling noted. Left foot s/p TMA is dressed in bandages, no signs of erythema, no drainage or blood present on the bandage. Extremities: no BLE edema, no calf tenderness, no cyanosis or clubbing Neuro: A&Ox3, moves all extremities, no focal deficits, sensation lower extremities symmetrical bilaterally Psych: Appropriate mood and behavior, mildly anxious. - Assessment and Plan (1) Osteomyelitis of left foot Current Visit: Yes Status: Acute Assessment and Plan: Presented from podiatry office with concern for osteomyelitis as well as abscess and cellulitis of left foot. Status post transmetatarsal amputation of the left foot in 2017 with surgery for nonhealing ulcer 10/2018 Cellulitis, abscesses 2 and osteomyelitis present - Left foot [id number] soft tissue swelling of stump of midfoot amputation, possible osteo-myelitis with cellulitis - Left foot MRI-cellulitis of soft tissue stump with abscesses along distal aspect of soft tissue stump, largest measuring 2.51.31.2 cm, smaller 0.50.50.9 cm. Osteomyelitis of medial cuneiform, intermediate cuneiform and navicular bone with erosive changes and cortical destruction of the medial cuneiform bone. Does not meet any sirs criteria-No Leukocytosis, fever, tachycardia, tachypnea. ESR elevated at 63 C-reactive protein elevated at 12 Blood cultures pending Continue pain control Antibiotics-vancomycin, Zosyn Cardiology consult in for abnormal stress test performed 03/05/19. Patient is high risk for surgery, she has refused left heart catheter and wants to proceed with foot surgery as soon as possible. Podiatry consulted-planning on taking patient to surgery this evening (2) Cellulitis of left foot Current Visit: Yes Status: Acute Assessment and Plan: See above for management (3) Foot abscess, left Current Visit: Yes Status: Acute Assessment and Plan: See above for management (4) Abnormal stress test Current Visit: Yes Status: Acute Assessment and Plan: Patient had NSTEMI 10/2018 and refused left heart catheter at that time. - Stress test 03/05/2019-gated EF of 39%, left ventricle dilated, large size moderate to severe intensity, primarily fixed inferior, inferior lateral and inferior septal perfusion defect suggestive of a prior infarct. There is mild mandy-infarct ischemia involving the inferior and inferior lateral segments. Medium to 5 severe intensity acute perfusion defect involving the apical segments and apex suggestive of prior infarct. Findings suggest obstructive multivessel coronary artery disease. Cardiology was consulted for preoperative evaluation. They recommended left heart catheter prior to surgery however the patient refused. She is high risk for cardiovascular complications. Patient states that she would be agreeable to left heart catheter after the surgery. Continue aspirin (5) Uncontrolled diabetes mellitus Current Visit: Yes Status: Acute Assessment and Plan: Patient has a history of insulin-dependent diabetes mellitus Hemoglobin A1c on admission was 13.3 Poor glucose control impeding healing of left foot and is coronary artery disease equivalent Discussed at length need for better glucose control Continue basal and sliding scale insulin after surgery this evening Continue to monitor (6) Chronic kidney disease Current Visit: Yes Status: Acute Assessment and Plan: History of stage III CKD Currently at baseline Baseline creatinine 1.04 Continue to monitor DVT Prophylaxis: Subcutaneous heparin to resume after surgery - Time Spent with Patient Total time spent is greater than 50% in coordination of care (as documented) at patient's floor/unit and/or counseling patient: Internal Medicine: Result - Labs CBC & Chem 7: 03/20/19 06:54 03/20/19 06:54 Labs: Short CBC 03/20/19 Range/Units 06:54 WBC 5.0 (4.3-11.1) K/mcL Hgb 11.2 L (11.5-15.4) g/dL Hct 33.1 L (35.3-44.9) % Plt Count 155 (140-400) K/mcL Neutrophils # 3.5 (1.6-8.9) K/mcL BMP 03/20/19 06:54 Sodium 139 Potassium 3.8 Chloride 107 Carbon Dioxide 23 BUN 17 Creatinine 1.04 Glucose 223 H Calcium 9.0 - Impressions Impressions Foot MRI 03/19/19 13:28 IMPRESSION: Postsurgical changes status post amputation of the forefoot at the level of the tarsometatarsal articulations. Cellulitis of the soft tissue stump with abscesses along the distal aspect of the soft tissue stump, the largest measuring 2.5 x 1.3 x 1.2 cm. The smaller abscess measuring 5 x 5 x 9 mm appears to drain to the skin surface. Findings consistent with osteomyelitis of the medial cuneiform, intermediate cuneiform and navicular bone with erosive changes and cortical destruction of the medial cuneiform bone. D/ / 03/19/2019 14:55:58 Khari Aj MD / [facility] Interpreting Provider: Khari Aj MD Consult Discharge Plan - Plan Instructions: Cellulitis (GEN), Diabetic Foot Care (DC), Diabetes Mellitus Type 2 in Adults (DC), Basic Carbohydrate Counting (DC), Acute Wound Care (DC), Diabetic Foot Ulcers (DC) Referrals: Bernardino Burkett MD [Primary Care Provider] - <Ninfa Fernandez - Last Filed: 03/20/19 18:02> Hospitalist Progress Note - Encounter Date of Encounter: 03/20/19 - Exam Vitals: Temp Pulse Resp BP Pulse Ox 98.2 F 78 16 169/97 96 03/20/19 16:54 03/20/19 16:54 03/20/19 16:54 03/20/19 16:54 03/20/19 15:16 - Assessment and Plan (1) Cellulitis of left foot Current Visit: Yes Status: Acute (2) Diabetes Current Visit: No Status: Acute (3) Osteomyelitis of left foot Current Visit: Yes Status: Acute (4) Foot abscess, left Current Visit: Yes Status: Acute (5) Abnormal stress test Current Visit: Yes Status: Acute - Time Spent with Patient Total time spent is greater than 50% in coordination of care (as documented) at patient's floor/unit and/or counseling patient: Internal Medicine: Result - Labs CBC & Chem 7: 03/20/19 06:54 03/20/19 06:54 Labs: Short CBC 03/20/19 Range/Units 06:54 WBC 5.0 (4.3-11.1) K/mcL Hgb 11.2 L (11.5-15.4) g/dL Hct 33.1 L (35.3-44.9) % Plt Count 155 (140-400) K/mcL Neutrophils # 3.5 (1.6-8.9) K/mcL BMP 03/20/19 06:54 Sodium 139 Potassium 3.8 Chloride 107 Carbon Dioxide 23 BUN 17 Creatinine 1.04 Glucose 223 H Calcium 9.0 - Impressions Impressions Foot MRI 03/19/19 13:28 IMPRESSION: Postsurgical changes status post amputation of the forefoot at the level of the tarsometatarsal articulations. Cellulitis of the soft tissue stump with abscesses along the distal aspect of the soft tissue stump, the largest measuring 2.5 x 1.3 x 1.2 cm. The smaller abscess measuring 5 x 5 x 9 mm appears to drain to the skin surface. Findings consistent with osteomyelitis of the medial cuneiform, intermediate cuneiform and navicular bone with erosive changes and cortical destruction of the medial cuneiform bone. D/ / 03/19/2019 14:55:58 Khari Aj MD / [facility] Interpreting Provider: Khari Aj MD - Attending Attestation I examined this patient and my medical decision-making was reviewed with the Resident Physician dr Park. I agree with the documented findings, disposition and treatment plan as described except to the extent set forth below. Ms Amaya is admitted with foot cellulitis, abscess and osteomyelitis requiring surgical intervention awake, pain tolerable in foot. denies fevers, chills, n/v. awaiting or today as per 3NE RN Yasmin, podiatry will be taking to OR tomorrow and not today gen- alert, awake,appears stated age cv- reg rate and rhythm, normal s1,s2, no murmurs appreciated, no le edema lungs- ctabl, no wheezing, rhonchi or crackles skin- left foot dressed, c/d/i neuro- AAOx3 Left Foot CEllulitis / Abscess/ Osteo- podiatry following, to OR, now tomorrow, cont vanc + zosyn, cody wait OR cxs, consider ID consult at that time CArds evaluated for pre op risk assessment Abnormal stress test outpt 03/05/19- appreciate cards eval, Recommend LHC prior to surgery,patient refusing.wants to proceed with surgery. patient would be at high risk for cardiovascular complications in the mandy- operative time period DM- hold TID AC standing insulin given npo, cont SSI and basal insulin (remained high today despite being npo since midnight with full basal dose) , prn hypoglycemics further diagnoses and plan as noted by resident <Ninfa Fernandez - Last Filed: 03/20/19 18:02> (2) Diabetes Qualifiers: Diabetes mellitus type: type 2 Diabetes mellitus medical detail representative insulin use: with medical detail representative use Diabetes mellitus complication status: with skin complications Diabetes mellitus complication detail: with foot ulcer Qualified Code(s): E11.621 - Type 2 diabetes mellitus with foot ulcer; L97.509 - Non-pressure chronic ulcer of other part of unspecified foot with unspecified severity; Z79.4 - buttermilk drier operator (current) use of insulin (3) Osteomyelitis of left foot Qualifiers: Osteomyelitis type: unspecified type Qualified Code(s): M86.9 - Osteomyelitis, unspecified
[2019-03-20] MEDS: Insulin DETEMIR 100 UNIT/ML X5UNITS SQ SCH (21:18)
[2019-03-21] MEDS: Piperacillin/Tazobactam 3.375 GM in 0.9 % Sodium Chloride Mini Bag 100 ML IVP SCH ×2 (02:21→09:10)
[2019-03-21] MEDS: *HR* Heparin 5,000 UNIT/ML VIAL SQ SCH ×2 (02:40→19:26)
[2019-03-21 05:54] LABS: Basophils % 0.4 %; Eosinophils # 0.2 K/mcL (0.0-0.6); Eosinophils % 4.1 %; Hematocrit 32.3 % (35.3-44.9); Hemoglobin 10.6 g/dL (11.5-15.4); Immature Granulocytes % 0.4 % (0-4); Lymphocytes % 20.4 %; Mean Corpuscular HGB Conc 32.8 g/dL (31.6-35.5); Mean Corpuscular Volume 88.3 fL (83.0-100.0); Mean Platelet Volume 10.3 fL (9.4-12.4); Monocytes # 0.5 K/mcL (0.0-1.3); Monocytes % 9.9 %; Platelet Count 154 K/mcL (140-400); Red Blood Count 3.66 M/mcL (3.82-4.97); Red Cell Distribution Width 12.3 % (11.5-14.5); Segmented Neutrophils % 64.8 %
[2019-03-21 06:15] LABS: Calcium 9.2 mg/dL (8.6-10.3); Potassium 3.7 mEq/L (3.5-5.1)
--- NOTE | 2019-03-21 08:56 | Event Note ---
Date of Encounter: 03/21/19 Time of Encounter: 08:55 - Cardiology Event Note Plan for surgery today with podiatry. Plan for LHC post surgery when stable. Cardiology will peripherally follow this weekend. Plan for possible LHC on Sunday, if stable from surgery standpoint.
[2019-03-21] MEDS: Aspirin Enteric Coated 81 MG Tablet PO SCH (09:07)
[2019-03-21] MEDS: Insulin LISPRO 300 UNITS/3 ML VIAL SQ SCH ×3 (09:10→22:33)
--- NOTE | 2019-03-21 12:27 | Infectious Disease Consult ---
Infectious Disease-Consult - Encounter Date/Time Date of Encounter: 03/21/19 Time of Encounter: 12:22 - Data of Consult Patient: new to practice Reason for consult: Left foot abscess and osteomyelitis. Consult date: 03/21/19 Requesting Physician: Ninfa Fernandez Primary Care Provider: Bernardino Burkett MD - HPI HPI: Ms. Amaya is a 59-year-old female with a past medical history of diabetes, CAD, hyperlipidemia, hypertension, status post left foot TMA 2016 and status post I&D of the left foot October 2018. The patient was admitted to the hospital 03/19/19 for left foot cellulitis. We are consulted 03/21/19 for further workup and treatment recommendations for left foot abscess and possible osteomyelitis. Briefly, the patient is a 59-year-old female with past medical history as stated above. The patient presented to the emergency department at the direction of her ore tester, Dr. Hernandez, with complaints of left foot cellulitis. The patient had previously undergone a left foot TMA in [address] [facility] secondary to a progressive left foot diabetic foot ulcer and infection. Postop, she developed some issues with wound healing and required surgical debridement in October 2018 which was completed here by Dr. Hernandez. She completed a postop course of oral antibiotics and continued to have issues with wound healing. Dr. Hernandez recommended a surgical procedure to assist with bone healing, but the patient was awaiting cardiac clearance. When she saw Dr. Hernandez in the wound clinic earlier this week he noticed that the patient had some cellulitic changes so he referred her to the ER for evaluation. Upon arrival, the patient was afebrile hemodynamically stable. White blood cell count was normal. Renal function and lactic acid were within normal limits. Her A1c was elevated at 13.3. Left foot x-ray showed worsening soft tissue swelling of the stump of the mid foot amputation with lucencies and cortical irregularity involving the medial cuneiform suggesting possible osteomyelitis with cellulitis. She was started empirically on IV antibiotics and admitted to the hospital for further evaluation. Since admission, the patient has remained afebrile hemodynamically stable. She underwent an MRI of the left foot that showed postsurgical changes status post irritation of the forefoot at the level of the tarsometatarsal articulations, cellulitis of the soft tissue stump with abscesses along the distal aspect of the soft tissue stump, and findings consistent with osteomyelitis of the medial cuneiform, intermediate cuneiform, and navicular bone with erosive changes and cortical destruction of the medial cuneiform bone. Podiatry was consulted. They are preparing for operative debridement later today. Currently, the patient is on vancomycin and Zosyn. We have been asked to evaluate and make further recommendations. During my exam today, the patient endorses a history as stated above. She denies any fevers or chills or rigors. Denies headache or neck pain. Denies chest pain, shortness of breath, or cough. Denies nausea, vomiting, diarrhea, or constipation. Denies abdominal pain or urinary complaints. Denies any oral thrush or skin lesions. Denies any pain in her back, joints, or extremities. Denies any pain at the infection site. She does complain of some coccyx pain and states she thinks she might have a pressure ulcer there. The patient lives at home with her family. She does not work outside the home. She denies any tobacco, alcohol, or illicit drug use. She reports that her blood sugars up and poorly controlled at home. She denies any chronic infectious diseases. She denies any recent travel outside the [facility]. She does have a dog, but denies any bites or scratches. - ROS Review of Systems: All systems reviewed and no additional remarkable complaints except as stated. - Results CBC & Chem 7: 03/24/19 08:29 03/24/19 08:29 - Exam Vitals: Temp Pulse Resp BP Pulse Ox 98.4 F 84 16 158/87 96 03/21/19 06:28 03/21/19 06:28 03/21/19 06:28 03/21/19 06:28 03/21/19 06:28 Exam: Head: Atraumatic, normal inspection, normocephalic. Eye: EOMI, PERRLA, no scleral icterus noted. ENT: Mucous membranes moist. No odontogenic infection noted. Poor dentition noted. Neck: Normal inspection, no meningismus. Respiratory: Clear to auscultation. No rales, respiratory distress, rhonchi, or wheezes noted. Cardiovascular: Regular rate and rhythm, S1 and S2 audible. No murmurs, rubs, or gallops. GI: Soft, nondistended, normal bowel sounds. Extremities:No joint swelling, pedal edema, or tenderness noted. Left foot dressing with small amount of old bloody drainage noted. No erythema extending above the dressing. Back: Normal inspection. No vertebral tenderness noted. Blanchable erythematous lesion noted to the coccyx. Neurological: Alert, oriented 3, no focal deficits. Psychiatric: normal affect, normal mood. Skin: Dry, intact, warm. Normal color. No rashes. Aspirin [Lo-Dose Aspirin EC] 81 mg PO DAILY 10/13/18 [History] Insulin ASPART [Novolog Flexpen] 10 unit SQ TID 10/13/18 [History] Insulin Glargine,Hum.rec.anlog [Lantus Solostar] 20 unit SQ HS 10/13/18 [History] Allergy/AdvReac Type Severity Reaction Status Date / Time No Known Allergies Allergy Verified 10/13/18 10:19 - Assessment and Plan (1) Osteomyelitis of left foot Current Visit: Yes Status: Acute Location: Medial cuneiform, intermediate cuneiform, and navicular bone left foot. Causative organism: Unclear. No cultures have been obtained. Likely secondary to chronic nonhealing surgical site. ESR elevated at 63, CRP 12. Podiatry consult. Planning operative debridement later today. Currently on vancomycin and Zosyn. Qualifiers: Osteomyelitis type: unspecified type Qualified Code(s): M86.9 - Osteomyelitis, unspecified SNOMED Code(s): 8265953855887882 (2) Foot abscess, left Current Visit: Yes Status: Acute Location: Left foot. Causative organism: Unclear. Likely secondary to chronic nonhealing surgical site. MRI of the left foot shows cellulitis of soft tissue stump with abscesses along the distal aspect of the soft tissue stump, the largest measuring 2.5 x 1.3 x 1.2 cm and the smaller abscess measuring 5 x 5 x 9 mm. Dietary consult and following. Planning operative irrigation and debridement later today. Currently on vancomycin and Zosyn. SNOMED Code(s): 05923210791373210 (3) Cellulitis of left foot Current Visit: Yes Status: Acute Location: Left foot. Causative organism: Unclear. Likely secondary to chronic nonhealing surgical site. Currently on vancomycin and Zosyn. SNOMED Code(s): 004990447 (4) Diabetes Current Visit: Yes Status: Acute Uncontrolled. Hemoglobin A1c 13.3%. Recommend aggressive glucose monitoring and control to promote wound healing and prevent reinfection. Qualifiers: Diabetes mellitus type: type 2 Diabetes mellitus longterm insulin use: with longterm use Diabetes mellitus complication status: with skin complicati ons Diabetes mellitus complication detail: with foot ulcer Qualified Code(s): E11.621 - Type 2 diabetes mellitus with foot ulcer; L97.509 - Non-pr essure chronic ulcer of other part of unspecified foot with unspecified severity; Z79.4 - custodial (current) use of insulin SNOMED Code(s): 88027725 (5) Coronary artery disease Current Visit: Yes Status: Acute SNOMED Code(s): 67941985 (6) Hypertension Current Visit: No Status: Chronic Qualifiers: Hypertension type: essential hypertension Qualified Code(s): I10 - Essential (primary) hypertension SNOMED Code(s): 20166554 - Recommendations Recommendations: Await blood cultures to finalize. Await intraoperative cultures and findings. Wound care and activity restrictions per the podiatry team. Diabetes management per the primary team. Continue vancomycin IV. Pharmacy to dose. Goal trough approximately 15. Continue Zosyn 3.375 g IV every 8 hours. Duration of treatment depends on the clinical picture. Monitor renal function for drug toxicity and dose adjust antibiotics. Past Med Surg Social Fam HX - Past Medical History Attestation: Yes The following information was validated with the patient. Source: patient, old records reviewed, nursing notes reviewed Medical history: diabetes, hyperlipidemia, hypertension Psychiatric history: anxiety, depression - Past Surgical History Surgical History: , cholecystectomy Additional surgical history: toes amputated to left foot (L transmet amputation); L ear surgery - Social History Smoking Status: Never smoker Smokeless Tobacco Status: No Alcohol use: none Drug use: none Occupational status: unemployed Current living situation: Home, With Family Activity Level: Independent ambulation Recent Out of Country Travel Within the Last 8 Weeks: No Exposure or Possible Exposure to Illness During Travel: No - Family History Mother Living Status: Hx Family Endocrine Disorder: No (Diabetes.) Brother Living Status: Still Living Hx Family Endocrine Disorder: Yes (Diabetes) Maternal Grandfather Living Status: Hx Family Cardiac Disorders: Yes (HTN) Hx Family Endocrine Disorder: Yes (Diabetes) Consult Discharge Plan - Plan Instructions: Cellulitis (GEN), Diabetic Foot Care (DC), Diabetes Mellitus Type 2 in Adults (DC), Basic Carbohydrate Counting (DC), Acute Wound Care (DC), Diabetic Foot Ulcers (DC) Referrals: Bernardino Burkett MD [Primary Care Provider] - - Attending Attestation I have personally performed a face to face evaluation on this patient. I have reviewed and agree with the care plan. History and Exam by me shows: This is an addendum to original report dictated by Celeste Kim CNP. Please refer to Celeste's note for full detail. Patient is a 59-year-old woman with past medical history mentioned below including diabetes mellitus type 2, coronary artery disease, hypertension and history of left foot TMA in 2017 and status post I&D of the left foot October 2018 has been having worsening cellulitis of the left foot was evaluated as an outpatient and sent her for surgical intervention. Assessment and plan: 1.Osteomyelitis of the left foot including medial cuneiform, intermediate cuneiform and navicular bone of the left foot; causative organism unclear 2.Left foot abscess 2.51.31.2 cm and 0.50.50.9 cm 3.Diabetes mellitus type 2 poorly controlled hemoglobin A1c 13.3 4.Coronary artery disease 5.Hypertension Recommendations Await blood cultures to finalize. Await intraoperative cultures and findings. Wound care and activity restrictions per the podiatry team. Diabetes management per the primary team. Continue vancomycin IV. Pharmacy to dose. Goal trough approximately 15. Continue Zosyn 3.375 g IV every 8 hours. Duration of treatment depends on the clinical picture. Monitor renal function for drug toxicity and dose adjust antibiotics.
--- NOTE | 2019-03-21 12:55 | Internal Med Progress Note ---
<Ninfa Fernandez - Last Filed: 03/21/19 13:47> Hospitalist Progress Note - Encounter Date of Encounter: 03/21/19 - Exam Vitals: Temp Pulse Resp BP Pulse Ox 98.4 F 84 16 158/87 96 03/21/19 06:28 03/21/19 06:28 03/21/19 06:28 03/21/19 06:28 03/21/19 06:28 - Assessment and Plan (1) Cellulitis of left foot Current Visit: Yes Status: Acute (2) Diabetes Current Visit: No Status: Acute (3) Osteomyelitis of left foot Current Visit: Yes Status: Suspected (4) Foot abscess, left Current Visit: Yes Status: Acute (5) Abnormal stress test Current Visit: Yes Status: Acute - Time Spent with Patient Total time spent is greater than 50% in coordination of care (as documented) at patient's floor/unit and/or counseling patient: Internal Medicine: Result - Labs CBC & Chem 7: 03/21/19 05:24 03/21/19 05:24 Labs: Short CBC 03/21/19 Range/Units 05:24 WBC 4.7 (4.3-11.1) K/mcL Hgb 10.6 L (11.5-15.4) g/dL Hct 32.3 L (35.3-44.9) % Plt Count 154 (140-400) K/mcL Neutrophils # 3.0 (1.6-8.9) K/mcL BMP 03/21/19 05:24 Sodium 137 Potassium 3.7 Chloride 106 Carbon Dioxide 22 L BUN 17 Creatinine 1.19 Glucose 258 H Calcium 9.2 - Impressions Impressions Foot MRI 03/19/19 13:28 IMPRESSION: Postsurgical changes status post amputation of the forefoot at the level of the tarsometatarsal articulations. Cellulitis of the soft tissue stump with abscesses along the distal aspect of the soft tissue stump, the largest measuring 2.5 x 1.3 x 1.2 cm. The smaller abscess measuring 5 x 5 x 9 mm appears to drain to the skin surface. Findings consistent with osteomyelitis of the medial cuneiform, intermediate cuneiform and navicular bone with erosive changes and cortical destruction of the medial cuneiform bone. D/ /19/2019 14:55:58 Khari Aj MD / roxane Interpreting Provider: Khari Aj MD Consult Discharge Plan - Plan Instructions: Cellulitis (GEN), Diabetic Foot Care (DC), Diabetes Mellitus Type 2 in Adults (DC), Basic Carbohydrate Counting (DC), Acute Wound Care (DC), Diabetic Foot Ulcers (DC) Referrals: Bernardino Burkett MD [Primary Care Provider] - - Attending Attestation I examined this patient and my medical decision-making was reviewed with the Resident Physician dr Park. I agree with the documented findings, disposition and treatment plan as described except to the extent set forth below. Ms Amaya is admitted with foot cellulitis, abscess and osteomyelitis requiring surgical intervention She had a very recent abnormal outpt stress test requiring intervention that may occur this admission awake, no pain, no fevers, chills, to OR later today. No cp, pressure or sob. gen- alert, awake,appears stated age cv- reg rate and rhythm, normal s1,s2, no le edema lungs- ctabl, normal resp effort on room air skin- left foot dressed, c/d/i neuro- AAOx3 Left Foot CEllulitis / Abscess/ Osteo- podiatry following, OR today, cont vanc + zosyn, will ait OR cxs, consider ID consult at that time CArds evaluated for pre op risk assessment Abnormal stress test outpt 03/05/19- appreciate cards eval, Recommend LHC prior to surgery,patient refusing.wants to proceed with surgery then [facility] patient would be at high risk for cardiovascular complications in the mandy- operative time period tentative LHC Saturday 03/24 DM- hold TID AC standing insulin given npo, cont SSI and basal insulin adjust as needed post op , prn hypoglycemics further diagnoses and plan as noted by resident <Annalisa Park - Last Filed: 03/21/19 17:00> Hospitalist Progress Note - Encounter Date of Encounter: 03/21/19 Time of Encounter: 10:30 - Subjective Interval History: Patient seen and examined at bedside today. She states she had no acute issues overnight. Tentative LHC during admission after surgical debridement of left foot. She currently denies any pain. She is to have surgical debridement later on today. She denies fever, chills, nausea, vomiting, chest pain, shortness of breath, abdominal pain, constipation, melena, hematochezia, dysuria, hematuria, calf pain. We further discussed need for improved glucose control. - Exam Vitals: Temp Pulse Resp BP Pulse Ox 98.4 F 84 16 158/87 96 03/21/19 06:28 03/21/19 06:28 03/21/19 06:28 03/21/19 06:28 03/21/19 06:28 Exam: Gen: Vitals noted. No acute distress, pleasant. AAOx3 HEENT: PERRL/EOMI, oropharynx clear, Normocephalic, atraumatic, MMM. Poor dentition. Cardiac: RRR, no murmur, +S1/S2, radial and dorsal pedis pulses 3+ and symmetrical Pulmonary: CTA bilaterally, no wheezes, rales or rhonchi, equal chest expansion Abdomen: soft, nontender, BS noted, no guarding, no rebound. MSK: ROM intact, no joint swelling noted. Left foot s/p TMA is dressed in bandages, no signs of erythema, small amount of drainage noted on dressing Extremities: Trace edema of left lower extremity, no calf tenderness, no cyanosis or clubbing Neuro: A&Ox3, moves all extremities, no focal deficits, sensation lower extremities symmetrical bilaterally Psych: Appropriate mood and behavior, in good spirits. - Assessment and Plan (1) Osteomyelitis of left foot Current Visit: Yes Status: Acute Assessment and Plan: Presented from podiatry office with concern for osteomyelitis as well as abscess and cellulitis of left foot. Status post transmetatarsal amputation of the left foot in 2016 with surgery for nonhealing ulcer 10/2018 - Left foot [id number] soft tissue swelling of stump of midfoot amputation, possible osteo-myelitis with cellulitis - Left foot MRI-cellulitis of soft tissue stump with abscesses along distal aspect of soft tissue stump, largest measuring 2.51.31.2 cm, smaller 0.50.50.9 cm. Osteomyelitis of medial cuneiform, intermediate cuneiform and navicular bone with erosive changes and cortical destruction of the medial cuneiform bone. ESR 63 CRP 12 Blood cultures remain pending Intraoperative cultures to be taken Continue antibiotic coverage-vancomycin, Zosyn Podiatry-surgical debridement pending (2) Cellulitis of left foot Current Visit: Yes Status: Acute Assessment and Plan: See above for management (3) Foot abscess, left Current Visit: Yes Status: Acute Assessment and Plan: See above for management (4) Abnormal stress test Current Visit: Yes Status: Acute Assessment and Plan: Patient had NSTEMI 10/2018 and refused left heart catheter at that time. - Stress test 03/05/2019-gated EF of 39%, left ventricle dilated, large size moderate to severe intensity, primarily fixed inferior, inferior lateral and inferior septal perfusion defect suggestive of a prior infarct. There is mild mandy-infarct ischemia involving the inferior and inferior lateral segments. Medium to 5 severe intensity acute perfusion defect involving the apical segments and apex suggestive of prior infarct. Findings suggest obstructive multivessel coronary artery disease. Tentative left heart catheter for Sunday (5) Uncontrolled diabetes mellitus Current Visit: Yes Status: Acute Assessment and Plan: History of insulin-dependent diabetes mellitus Uncontrolled Hemoglobin A1c 13.3 Poor glucose control impeding healing of left foot and coronary artery disease equivalent Continue basal and sliding scale insulin after surgery this evening Continue to monitor (6) Chronic kidney disease Current Visit: Yes Status: Acute Assessment and Plan: Stage III CKD Continues to be at baseline Continue to monitor DVT Prophylaxis: SQ heparin after surgery - Time Spent with Patient Total time spent is greater than 50% in coordination of care (as documented) at patient's floor/unit and/or counseling patient: Internal Medicine: Result - Labs CBC & Chem 7: 03/21/19 05:24 03/21/19 05:24 Labs: Short CBC 03/21/19 Range/Units 05:24 WBC 4.7 (4.3-11.1) K/mcL Hgb 10.6 L (11.5-15.4) g/dL Hct 32.3 L (35.3-44.9) % Plt Count 154 (140-400) K/mcL Neutrophils # 3.0 (1.6-8.9) K/mcL BMP 03/21/19 05:24 Sodium 137 Potassium 3.7 Chloride 106 Carbon Dioxide 22 L BUN 17 Creatinine 1.19 Glucose 258 H Calcium 9.2 - Impressions Impressions Foot MRI 03/19/19 13:28 IMPRESSION: Postsurgical changes status post amputation of the forefoot at the level of the tarsometatarsal articulations. Cellulitis of the soft tissue stump with abscesses along the distal aspect of the soft tissue stump, the largest measuring 2.5 x 1.3 x 1.2 cm. The smaller abscess measuring 5 x 5 x 9 mm appears to drain to the skin surface. Findings consistent with osteomyelitis of the medial cuneiform, intermediate cuneiform and navicular bone with erosive changes and cortical destruction of the medial cuneiform bone. 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 Diabetes mellitus complication status: with skin complications Diabetes mellitus complication detail: with foot ulcer Qualified Code(s): E11.621 - Type 2 diabetes mellitus with foot ulcer; L97.509 - Non-pressure chronic ulcer of other part of unspecified foot with unspecified severity; Z79.4 - extermination supervisor (current) use of insulin (3) Osteomyelitis of left foot Qualifiers: Osteomyelitis type: unspecified type Qualified Code(s): M86.9 - Osteomyelitis, unspecified <Annalisa Park - Last Filed: 03/21/19 17:00> (1) Osteomyelitis of left foot Qualifiers: Osteomyelitis type: unspecified type Qualified Code(s): M86.9 - Osteom yelitis, unspecified (6) Chronic kidney disease Qualifiers: Chronic kidney disease stage: stage 3 (moderate) Qualified Code(s): N18.3 - Chronic kidney disease, stage 3 (moderate)
[2019-03-21] MEDS ORDERED: Lidocaine -MPF 2% 2 ML VIAL ONE (15:23)
[2019-03-21] MEDS ORDERED: EPHEDrine 50 MG/ML VIAL ONE (15:24)
[2019-03-21] MEDS ORDERED: *HR* Propofol 200 MG/20 ML VIAL IVP ONE ×3 (15:24→16:48)
[2019-03-21] MEDS ORDERED: *HR* FentaNYL (PF) 100 MCG/2 ML VIAL ONE (15:25)
[2019-03-21] MEDS ORDERED: *HR* PHENYLEPHRINE 1,000 MCG/10 ML SYRINGE IVP ONE (15:27)
[2019-03-21] MEDS ORDERED: *HR* Metoprolol 5 MG/5 ML VIAL IVP ONE (16:00)
--- NOTE | 2019-03-21 17:22 | Orthopedic Operative Note ---
Date of procedure: 03/21/19 Pre-op diagnosis: left foot abscess, osteomyelitis Post-op diagnosis: same Procedure: 03/21/19 17:20 1. Rotational flap greater than 10.1 sq cm, left foot 2. Midtarsal amputation (Chopart), left foot 3. Incision and drainage abscess below fascia, left foot Implants: RITA drain Complications: None Anesthesia: regional Surgeon: Dangelo Lee Was there an process assistant present: No Estimated blood loss (cc): 20 Tourniquet Time (Minutes): 26 Specimen: Medial and intermediate cuneiform to micro, left foot abscess to pathology Condition: stable Disposition: floor Procedure in Detail: 03/21/19 21:32 INDICATIONS AND CONSENT Margi Amaya is a 59 year old female who initially presented with a left foot wound that developed from complications after a previous midfoot amputation. Due to her cardiac history, clearance for elective bone resection was delayed. She later developed an abscess with cellulitis and was admitted to the hospital. MRI showed evidence of abscess at the dorsal aspect of the stump ulcer with evidence of osteomyelitis at the medial and intermediate cuneiforms. Given the concern for acute infection and risk for limb loss, surgical intervention was warranted to perform incision and drainage with revision amputation, and all associated procedures. We discussed the above procedures in detail. This included a discussion on the indications, contraindications, and possible complications including but not limited to: infection, non-healing wound, pain, swelling, bleeding, blood clots, heart complications, nerve injury, tendon injury, vascu lar injury, loss of limb, loss of life, and need for further surgery. We also reviewed the expected post operative course, including a discussion on the non- weightbearing status after this procedure. She related understanding of our discussion regarding this surgery. All questions were answered to her satisfaction, and a proper written informed consent was obtained, signed, and placed in the chart. No guarantees were given, stated or implied, as to the outcome of this procedure. PROCEDURE IN DETAIL The patient was seen in the pre-operative holding area by Anesthesia, where she was consented for regional nerve block given her high cardiac risk. The patient was then brought back to the operative suite and placed on the operating room table in the supine position. A sign-in was performed. A well-padded pneumatic left ankle tourniquet was then placed. Next, the left lower leg was scrubbed, prepped, and draped in the usual aseptic manner. A [place] Time-Out was performed, and all parties in the room agreed. An ankle block was performed using 10mL of 1% lidocaine plain and 10mL of 0.5% sensorcaine plain. Next, an Esmarch was used to exsanguinate the left foot. The pneumatic ankle tourniquet was inflated to 200 mmHg. Attention was then directed to the distal left foot stump wound where a 15 blade was used to excise the non-viable soft tissue and abscess to the level of bone. Post wound debridement size was 5.3cm x 2.2cm x 1.5cm. The underlying medial cuneiform appeared necrotic and soft. A sagittal saw and rongeur were used to remove the remaining cuneiforms and partial cuboid. The bone was sent to micro. The soft tissue wound was sent to pathology. The wound was irrigated with 3 liters of normal saline using cysto tubing. The tourniquet was released and proper hyperemic response was noted to the wound bed. Given the concern for a large soft tissue defect in a high-risk patient, it was decided to close the wound in a rotational flap technique. The plantar flap was made by extending the medial aspect of the wound plantarly, then the plantar flap was rotated dorsolaterally to cover the wound. The subcutaneous tissue was re-approximated using 2-0 Vicryl and the skin was re-approximated under minimal tension using 2-0 Nylon. Given the amount of blood pooling in the surgical wound and large subcutaneous deficit following excision of bone, there was concern for a developing hematoma. A small RITA drain was inserted into the wound and exited through the lateral aspect of the foot. A dry, sterile dressing was then applied, which consisted of: xeroform, 4x4's, Kerlix fluffs, ABDs, and Kerlix roll with ROWENA wrap. A sign-out was performed. The patient tolerated anesthesia and the procedure well, and was transferred to PAC-U with vital signs stable and vascular status intact to the left lower extremity. Needle and sponge counts were correct X 2 at the end of the case. Dr. Dangelo Lee was present, scrubbed, and participated in all vital aspects of the procedure. After a brief stay in PAC-U, the patient will be admitted back to the floor for continued monitoring. We will follow up on wound cultures and bone cultures. She will likely require extended course of IV antibiotics given the concern for remaining chronic bone infection. She is at high risk for limb loss and this procedure was a last chance at limb salvage.
[2019-03-21] MEDS ORDERED: Vancomycin 1,000 MG, Sodium Chloride IRRigation 1,000 ML IR ONE ×2 (17:30→18:00)
--- NOTE | 2019-03-21 17:49 | Anesthesia Evaluation Post Op ---
Date of Encounter: 03/21/19 Time of Encounter: 17:18 - Vital Signs Vital Signs: vss - Lungs Lungs: Clear Ascult./Percussion - Airway Airway: Non-obstructed - Cardiovascular Baseline Rhythm - Mental Status Mental Status: Alert & Oriented, Answers Appropriately - Pain Pain Scale used: RalphJaney (Faces) (mild) - Nausea Vomiting Nausea Vomiting: Not Present - Hydration Hydration: Able to void - Discharge PostOp Status: Transfer Patient to floor
[2019-03-21] MEDS ORDERED: Acetaminophen 325 MG TABLET PO PRN (18:00)
[2019-03-21] MEDS ORDERED: *HR* HYDROcodone/Acet 5/325 mg TABLET PO PRN (18:00)
[2019-03-21] MEDS ORDERED: D5% in Water 1,000 ML IVC PRN (18:00)
[2019-03-21] MEDS ORDERED: Naloxone 0.4 MG/ML INJ IVP PRN (18:00)
[2019-03-21] MEDS ORDERED: *HR* Dextrose 50 % in Water (Syg) 50 ML SYRINGE IVP PRN (18:00)
[2019-03-21] MEDS ORDERED: Ondansetron ODT 4 MG TAB.RAPDIS SL PRN (18:00)
[2019-03-21] MEDS ORDERED: Dextrose Gel 15 GM/37.5 ML TUBE PO PRN ×2 (18:00)
[2019-03-21] MEDS: Piperacillin/Tazobactam 3.375 GM in 0.9 % Sodium Chloride Mini Bag 100 ML IVPB SCH (19:34)
[2019-03-21] MEDS: Insulin DETEMIR 100 UNIT/ML X5UNITS SQ SCH (22:33)
[2019-03-22] MEDS: Piperacillin/Tazobactam 3.375 GM in 0.9 % Sodium Chloride Mini Bag 100 ML IVPB SCH ×3 (02:46→18:00)
[2019-03-22] MEDS: *HR* Heparin 5,000 UNIT/ML VIAL SQ SCH ×2 (06:40→17:06)
[2019-03-22 06:49] LABS: Basophils % 0.4 %; Eosinophils # 0.3 K/mcL (0.0-0.6); Eosinophils % 4.9 %; Hematocrit 29.4 % (35.3-44.9); Hemoglobin 9.7 g/dL (11.5-15.4); Immature Granulocytes % 0.4 % (0-4); Lymphocytes % 18.9 %; Mean Corpuscular Hemoglobin 29.4 pg (28.0-33.3); Mean Corpuscular Volume 89.1 fL (83.0-100.0); Mean Platelet Volume 10.3 fL (9.4-12.4); Monocytes # 0.6 K/mcL (0.0-1.3); Monocytes % 11.3 %; Neutrophils # 3.4 K/mcL (1.6-8.9); Platelet Count 138 K/mcL (140-400); Red Cell Distribution Width 12.3 % (11.5-14.5); Segmented Neutrophils % 64.1 %
[2019-03-22 07:05] LABS: Calcium 8.7 mg/dL (8.6-10.3); Potassium 3.5 mEq/L (3.5-5.1)
--- NOTE | 2019-03-22 07:58 | Internal Med Progress Note ---
<Ninfa Fernandez - Last Filed: 03/22/19 11:33> Hospitalist Progress Note - Encounter Date of Encounter: 03/22/19 - Exam Vitals: Temp Pulse Resp BP Pulse Ox 98.7 F 85 18 139/89 96 03/22/19 07:09 03/22/19 07:09 03/22/19 07:09 03/22/19 07:09 03/22/19 07:09 - Assessment and Plan (1) Cellulitis of left foot Current Visit: Yes Status: Acute (2) Diabetes Current Visit: No Status: Acute (3) Osteomyelitis of left foot Current Visit: Yes Status: Acute (4) Foot abscess, left Current Visit: Yes Status: Acute (5) Abnormal stress test Current Visit: Yes Status: Acute - Time Spent with Patient Total time spent is greater than 50% in coordination of care (as documented) at patient's floor/unit and/or counseling patient: Internal Medicine: Result - Labs CBC & Chem 7: 03/22/19 06:02 03/22/19 06:02 Labs: Short CBC 03/22/19 Range/Units 06:02 WBC 5.3 (4.3-11.1) K/mcL Hgb 9.7 L (11.5-15.4) g/dL Hct 29.4 L (35.3-44.9) % Plt Count 138 L (140-400) K/mcL Neutrophils # 3.4 (1.6-8.9) K/mcL BMP 03/22/19 06:02 Sodium 139 Potassium 3.5 Chloride 108 H Carbon Dioxide 23 BUN 13 Creatinine 1.15 Glucose 165 H Calcium 8.7 Consult Discharge Plan - Plan Instructions: Cellulitis (GEN), Diabetic Foot Care (DC), Diabetes Mellitus Type 2 in Adults (DC), Basic Carbohydrate Counting (DC), Acute Wound Care (DC), Diabetic Foot Ulcers (DC) Referrals: Bernardino Burkett MD [Primary Care Provider] - - Attending Attestation I examined this patient and my medical decision-making was reviewed with the Resident Physician Dr Moreau. I agree with the documented findings, disposition and treatment plan as described except to the extent set forth below. Ms Amaya is admitted with foot cellulitis, abscess and osteomyelitis re quiring surgical intervention She had a very recent abnormal outpt stress test requiring intervention that may occur this admission awake, pain is currently tolerable, had pain overnight but refuses pain meds, denies fevers, chills. urinating, eating drinking and passing gas post op gen- alert, awake,appears stated age cv- reg rate and rhythm, normal s1,s2 lungs- ctabl, normal resp effort on room air skin- left foot dressed, c/d/i neuro- AAOx3 Left Foot CEllulitis / Abscess/ Osteo s/p I&D, midtarsal amputation and skin flap -awaiting bone and wound cxs -podiatry high suspicion remnant infected bone, will require long course IV abx cont vanc + zosyn CArds evaluated for pre op risk assessment Abnormal stress test outpt 03/05/19- appreciate cards eval, Recommend LHC prior to surgery,patient refusing. -pt considering post operative LHC patient would be at high risk for cardiovascular complications in the mandy- operative time period tentative LHC Saturday 03/24 DM- home insulin regimen, prn hypoglycemics Anemia, pre operatively noted- suspect 2/2 wound, monitor in post operative setting, hemodynamically stable further diagnoses and plan as noted by resident <Bartolome Moreau - Last Filed: 03/22/19 15:10> Hospitalist Progress Note - Encounter Date of Encounter: 03/22/19 Time of Encounter: 15:01 - Subjective Interval History: Patient seen and examined at bedside this morning. She states that she tolerated her surgery well and has no concerns at this time. Denies any pain, fevers, chills, nausea, vomiting. - Exam Vitals: Temp Pulse Resp BP Pulse Ox 98.7 F 85 18 139/89 96 03/22/19 07:09 03/22/19 07:09 03/22/19 07:09 03/22/19 07:09 03/22/19 07:09 Exam: Gen.: Vitals noted. No acute distress. AAOx3, resting comfortably in bed. HEENT: PERRL/EOMI, oropharynx clear, Normocephalic, atraumatic, MMM Cardiac: RRR, no murmur, +S1/S2, No BLE edema Pulmonary: CTA bilaterally, no wheezes, rales or rhonchi, equal chest expansion, unlabored breathing Abdomen: soft, nontender, BS noted, no guarding, no palpable HSM Skin: warm and dry, left lower extremity with previous amputation, bandaging without obvious evidence of bleed, discharge. No surrounding erythema, warmth MSK: ROM not assessed, no joint swelling noted, gait no assessed while in bed. Non tender calf or clubbing Neuro: A&Ox3, moves all extremities, no focal deficits, sensation intact, Psych: Appropriate mood and behavior, AOx3 - Assessment and Plan (1) Osteomyelitis of left foot Current Visit: Yes Status: Acute Assessment and Plan: - Presented from podiatry office with concern for osteomyelitis as well as abscess and cellulitis of left foot. - Status post transmetatarsal amputation of the left foot in 2016 with surgery for nonhealing ulcer 10/2018 - Known poorly controlled diabetic - Non septic, no leukocytosis - ESR 63 - CRP 12 - Blood cultures remain pending - Per operative note, necrotic bone and soft tissue was noted, intraoperative cultures taken - Previous cultures of Staphylococcus aureus, methicillin sensitive, Proteus penneri, enterobacter cloacae - Left foot [id number] soft tissue swelling of stump of midfoot amputation, possible osteo-myelitis with cellulitis - Left foot MRI-cellulitis of soft tissue stump with abscesses along distal aspect of soft tissue stump, largest measuring 2.51.31.2 cm, smaller 0.50.50.9 cm. Osteomyelitis of medial cuneiform, intermediate cuneiform and navicular bone with erosive changes and cortical destruction of the medial cuneiform bone. Postoperative day #1 from midtarsal amputation, incision and drainage, rotational flap of left foot with podiatry Plan Continue antibiotic coverage-vancomycin, Zosyn, day #3. Will likely need 6 weeks of IV antibiotics Podiatry following Infectious disease following for long-term antibiotics (2) Cellulitis of left foot Current Visit: Yes Status: Acute Assessment and Plan: As above for osteomyelitis (3) Diabetes Current Visit: Yes Status: Acute Assessment and Plan: Poorly controlled, hemoglobin A1c of 13.3% on admission Blood sugars currently controlled in the 100s to 200s Levemir 20 units HS ADA diet cont home regimen Lispro 10 U TID as well as sliding scale moderate (4) Foot abscess, left Current Visit: Yes Status: Acute Assessment and Plan: As above, status post I&D (5) Abnormal stress test Current Visit: Yes Status: Acute Assessment and Plan: - Patient had NSTEMI 10/2018 and refused left heart catheter at that time. - Stress test 03/05/2019-gated EF of 39%, left ventricle dilated, large size m oderate to severe intensity, primarily fixed inferior, inferior lateral and inferior septal perfusion defect suggestive of a prior infarct. There is mild mandy-infarct ischemia involving the inferior and inferior lateral segments. Medium to 5 severe intensity acute perfusion defect involving the apical segments and apex suggestive of prior infarct. Findings suggest obstructive multivessel coronary artery disease. - Cardiology following, recommend tentative left heart catheter for Sunday - Chest pain-free at this time Plan -Nothing by mouth midnight on Sunday DVT Prophylaxis: Subcutaneous heparin - Time Spent with Patient Total time spent is greater than 50% in coordination of care (as documented) at patient's floor/unit and/or counseling patient: Internal Medicine: Result - Labs CBC & Chem 7: 03/22/19 06:02 03/22/19 06:02 Labs: Short CBC 03/22/19 Range/Units 06:02 WBC 5.3 (4.3-11.1) K/mcL Hgb 9.7 L (11.5-15.4) g/dL Hct 29.4 L (35.3-44.9) % Plt Count 138 L (140-400) K/mcL Neutrophils # 3.4 (1.6-8.9) K/mcL BMP 03/22/19 06:02 Sodium 139 Potassium 3.5 Chloride 108 H Carbon Dioxide 23 BUN 13 Creatinine 1.15 Glucose 165 H Calcium 8.7 <Ninfa Fernandez - Last Filed: 03/22/19 11:33> (2) Diabetes Qualifiers: Diabetes mellitus type: type 2 Diabetes mellitus residential insulin use: with residential use Diabetes mellitus complication status: with skin complications Diabetes mellitus complication detail: with foot ulcer Qualified Code(s): E11.621 - Type 2 diabetes mellitus with foot ulcer; L97.509 - Non-pressure chronic ulcer of other part of unspecified foot with unspecified severity; Z79.4 - skilled nursing (current) use of insulin (3) Osteomyelitis of left foot Qualifiers: Osteomyelitis type: unspecified type Qualified Code(s): M86.9 - Osteomyelitis, unspecified <Bartolome Moreau - Last Filed: 03/22/19 15:10> (1) Osteomyelitis of left foot Qualifiers: Osteomyelitis type: unspecified type Qualified Code(s): M86.9 - Osteomyelitis, unspecified (3) Diabetes Qualifiers: Diabetes mellitus type: type 2 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
[2019-03-22] MEDS: Aspirin Enteric Coated 81 MG Tablet PO SCH (08:28)
[2019-03-22] MEDS: Insulin LISPRO 300 UNITS/3 ML VIAL SQ SCH ×7 (09:16→20:56)
[2019-03-22] MEDS: Insulin DETEMIR 100 UNIT/ML X5UNITS SQ SCH (20:56)
[2019-03-23] MEDS: Piperacillin/Tazobactam 3.375 GM in 0.9 % Sodium Chloride Mini Bag 100 ML IVPB SCH ×3 (02:23→17:17)
[2019-03-23 03:25] LABS: Basophils % 0.5 %; Eosinophils # 0.3 K/mcL (0.0-0.6); Eosinophils % 4.7 %; Hematocrit 28.9 % (35.3-44.9); Hemoglobin 9.5 g/dL (11.5-15.4); Immature Granulocytes % 0.5 % (0-4); Lymphocytes # 1.3 K/mcL (0.6-4.6); Lymphocytes % 24.2 %; Mean Corpuscular HGB Conc 32.9 g/dL (31.6-35.5); Mean Corpuscular Hemoglobin 29.6 pg (28.0-33.3); Mean Platelet Volume 10.4 fL (9.4-12.4); Monocytes # 0.7 K/mcL (0.0-1.3); Monocytes % 12.8 %; Neutrophils # 3.2 K/mcL (1.6-8.9); Platelet Count 149 K/mcL (140-400); Red Blood Count 3.21 M/mcL (3.82-4.97); Red Cell Distribution Width 12.4 % (11.5-14.5); Segmented Neutrophils % 57.3 %
[2019-03-23 03:44] LABS: Calcium 8.4 mg/dL (8.6-10.3); Potassium 3.4 mEq/L (3.5-5.1)
--- NOTE | 2019-03-23 08:28 | Podiatry Progress Note ---
Date of Encounter: 03/23/19 Time of Encounter: 08:27 - Assessment and Plan (1) Foot abscess, left Current Visit: Yes Status: Acute Patient progressing well s/p left foot I&D, midfoot amputation, and rotational flap. Dressing changed today. Drain removed due to decreased output today. Low concern for hematoma. Soft tissue infection appears to be improving. Flap site healthy with adequate perfusion. Continue NWB and recommend applying surgical shoe for heel touch WB as needed. Will follow up wound and bone cultures. Patient will likely need IV antibiotics at discharge. (2) Osteomyelitis of left foot Current Visit: Yes Status: Acute Bone cultures pending. Will likely need IV antibiotics at discharge based on culture sensitivities. Qualifiers: Osteomyelitis type: unspecified type Qualified Code(s): M86.9 - Osteomyelitis, unspecified Subjective Principal diagnosis: s/p foot surgery Interval history: Patient progressing well s/p left foot I&D, midfoot amputation, and rotational flap. She denies n/v/f/c. She has tried to remain NWB. She denies pain today. Dressing saturated with blood and required reinforcement. Objective - Vital Signs Vital Signs: Vital Signs Temp Pulse Resp BP Pulse Ox 03/23/19 04:00 98.0 F 82 18 167/100 95 03/22/19 22:52 98.3 F 80 18 137/87 93 03/22/19 19:15 99.4 F 79 16 137/82 94 03/22/19 16:27 99.3 F 84 16 144/78 93 03/22/19 12:26 98.6 F 81 16 113/70 96 Intake and Output 03/22/19 03/23/19 03/23/19 23:59 07:59 15:59 Intake Total 340 / 1370 0 / 0 Output Total 6 Balance 331 / 1344 -6 / -6 Intake: IV Fluids 100 / 550 Zosyn 3.375 GM In 0.9 % Sodium 100 / 300 Chloride (Mini-Bag +) 100 ML @ 25 mls/hr IVPB Q8H [facility] Rx#: [id number] Oral 240 / 820 0 / 0 Output: Urine 0 / 0 Wound Drainage 6 Left Foot Other: Meal Dinner Percent of Meal Consumed 25% Stool Size Large Stool Consistency loose liquid Stool Color Brown # Voids 1 1 # Bowel Movements 1 Weight 99.8 kg Blood Glucose* 132 Patient Weight 03/23/19 23:59 Weight 99.8 kg - Exam Exam: Alert, oriented x3, no acute distress Vascular: DP and PT palpable left foot. Capillary refill brisk to the left midfoot stump. Skin warm to touch. Dermatology: Left forefoot surgical incision well coapted with sutures intact. lateral foot wound from drain without erythema or drainage. Dorsal foot erythema improved. Musculoskeletal: Able to DF and PF at left ankle. No pain with manual compression of calf. Left midfoot amputation. Neuro: Sensations diminished bilateral lower extremity. - Lab Result Diagrams: 03/23/19 02:50 03/23/19 02:50 Labs: Abnormal lab results RBC 3.21 M/mcL (3.82-4.97) L 03/23/19 02:50 Hgb 9.5 g/dL (11.5-15.4) L 03/23/19 02:50 Hct 28.9 % (35.3-44.9) L 03/23/19 02:50 Plt Count 138 K/mcL (140-400) L 03/22/19 06:02 ESR 63 mm/hr (0-15) H 03/20/19 06:54 Sodium 133 mEq/L (136-145) L 03/19/19 11:59 Potassium 3.4 mEq/L (3.5-5.1) L 03/23/19 02:50 Chloride 108 mEq/L (98-107) H 03/23/19 02:50 Carbon Dioxide 22 mEq/L (23-29) L 03/21/19 05:24 BUN 25 mg/dL (6-20) H 03/19/19 11:59 1.36 mg/dL (0.60-1.20) H 03/23/19 02:50 Est GFR ( Amer) 49 (> 60) L 03/23/19 02:50 Est GFR (Non-Af Amer) 40 (> 60) L 03/23/19 02:50 Glucose 176 mg/dL (70-105) H 03/23/19 02:50 POC Glucose 132 mg/dL (70-99) H 03/22/19 20:06 13.3 % (-5.6) H 03/19/19 11:59 Calcium 8.4 mg/dL (8.6-10.3) L 03/23/19 02:50 12 mg/L (Less than 10) H 03/20/19 06:54 Vancomycin Trough 20 mcg/mL (5-10) H 03/21/19 12:28 - VTE Documentation of Mechanical Device: Intermittent pneumatic compression device Consult Discharge Plan - Plan Instructions: Cellulitis (GEN), Diabetic Foot Care (DC), Diabetes Mellitus Type 2 in Adults (DC), Basic Carbohydrate Counting (DC), Acute Wound Care (DC), Diabetic Foot Ulcers (DC) Referrals: Bernardino Burkett MD [Primary Care Provider] -
--- NOTE | 2019-03-23 08:30 | Internal Med Progress Note ---
<Ninfa Fernandez - Last Filed: 03/23/19 12:40> Hospitalist Progress Note - Encounter Date of Encounter: 03/23/19 - Exam Vitals: Temp Pulse Resp BP Pulse Ox 97.5 F L 70 16 123/69 97 03/23/19 08:00 03/23/19 08:00 03/23/19 08:00 03/23/19 08:00 03/23/19 08:00 - Assessment and Plan (1) Cellulitis of left foot Current Visit: Yes Status: Acute (2) Diabetes Current Visit: Yes Status: Acute (3) Osteomyelitis of left foot Current Visit: Yes Status: Acute (4) Foot abscess, left Current Visit: Yes Status: Acute (5) Abnormal stress test Current Visit: Yes Status: Acute - Time Spent with Patient Total time spent is greater than 50% in coordination of care (as documented) at patient's floor/unit and/or counseling patient: Internal Medicine: Result - Labs CBC & Chem 7: 03/23/19 02:50 03/23/19 02:50 Labs: Short CBC 03/23/19 Range/Units 02:50 WBC 5.5 (4.3-11.1) K/mcL Hgb 9.5 L (11.5-15.4) g/dL Hct 28.9 L (35.3-44.9) % Plt Count 149 (140-400) K/mcL Neutrophils # 3.2 (1.6-8.9) K/mcL BMP 03/23/19 02:50 Sodium 138 Potassium 3.4 L Chloride 108 H Carbon Dioxide 23 BUN 17 Creatinine 1.36 H Glucose 176 H Calcium 8.4 L Consult Discharge Plan - Plan Instructions: Cellulitis (GEN), Diabetic Foot Care (DC), Diabetes Mellitus Type 2 in Adults (DC), Basic Carbohydrate Counting (DC), Acute Wound Care (DC), Diabetic Foot Ulcers (DC) Referrals: Bernardino Burkett MD [Primary Care Provider] - - Attending Attestation I examined this patient and my medical decision-making was reviewed with the Resident Physician Dr Moreau. I agree with the documented findings, disposition and treatment plan as described except to the extent set forth below. Ms Amaya is admitted with foot cellulitis, abscess and osteomyelitis requiring surgical intervention She had a very recent abnormal outpt stress test requiring intervention that may occur this admission awake, no pain, no n/v or fevers/chills. denies cp, pressure or sob. JED drain removed by podiatry gen- alert, awake,appears stated age cv- reg rate and rhythm, normal s1,s2, no le edema lungs- ctabl, normal resp effort on room air skin- left foot dressed, c/d/i, no jed drain present neuro- AAOx3, sensation intact to light touch LE Left Foot CEllulitis / Abscess/ Osteo s/p I&D, midtarsal amputation and skin flap -awaiting bone and wound cxs -podiatry high suspicion remnant infected bone, will require long course IV abx cont vanc + zosyn CArds evaluated for pre op risk assessment Abnormal stress test outpt 03/05/19- appreciate cards eval, Recommend LHC prior to surgery,patient refusing. -pt considering post operative LHC patient would be at high risk for cardiovascular complications in the mandy- operative time period tentative LHC Saturday 03/24- npo p mn and spenser acting HS insulin adjusted Anemia, pre operatively noted- suspect 2/2 wound, stable, cont to monitor in post operative setting, hemodynamically stable Hypokalemia 3.4- PO repletion and monitor ANABELLA- IVF for 500cc and encourage oral intake, pharm to renal dose vanc + zosyn as needed further diagnoses and plan as noted by resident <Bartolome Moreau - Last Filed: 03/23/19 18:28> Hospitalist Progress Note - Encounter Date of Encounter: 03/23/19 Time of Encounter: 08:00 - Subjective Interval History: Patient was seen and examined at bedside this morning. She states that she continues to do well. No further oozing from her wound. She denies any symptoms of fevers, chills, chest pain, difficulty breathing, nausea, vomiting. No events overnight. On reevaluation this afternoon, we rediscussed the options of a left heart catheterization tomorrow. Patient states that she is very anxious and that this was "sprung on her ". She was told by a previous provider that she would have weeks to heal up before doing this as an outpatient. We did discuss that this is medically necessary and would not affect the healing of her foot. She states she will continue to consider this further this evening and is agreeable to discuss with cardiology in the morning. - Exam Vitals: Temp Pulse Resp BP Pulse Ox 98.0 F 82 18 167/100 95 03/23/19 04:00 03/23/19 04:00 03/23/19 04:00 03/23/19 04:00 03/23/19 04:00 Exam: Gen.: Vitals noted. No acute distress. AAOx3, resting comfortably in bed. HEENT: PERRL/EOMI, oropharynx clear, Normocephalic, atraumatic, MMM Cardiac: RRR, no murmur, +S1/S2, No BLE edema Pulmonary: CTA bilaterally, no wheezes, rales or rhonchi, equal chest expansion, unlabored breathing Abdomen: soft, nontender, BS noted, no guarding, no palpable HSM Skin: warm and dry, left lower extremity with previous amputation, bandaging without obvious evidence of bleed, discharge. No surrounding erythema, warmth MSK: ROM not assessed, no joint swelling noted, gait no assessed while in bed. Non tender calf or clubbing Neuro: A&Ox3, moves all extremities, no focal deficits, sensation intact, Psych: Appropriate mood and behavior, AOx3, mildly anxious - Assessment and Plan (1) Osteomyelitis of left foot Current Visit: Yes Status: Acute Assessment and Plan: - Presented from podiatry office with concern for osteomyelitis as well as abscess and cellulitis of left foot. - Status post transmetatarsal amputation of the left foot in 2016 with surgery for nonhealing ulcer 10/2018 - Known poorly controlled diabetic - Non septic, no leukocytosis - ESR 63 - CRP 12 - Blood cultures remain pending - Per operative note, necrotic bone and soft tissue was noted, intraoperative cultures taken - Previous cultures of Staphylococcus aureus, methicillin sensitive, Proteus penneri, enterobacter cloacae - Left foot [id number] soft tissue swelling of stump of midfoot amputation, possible osteo-myelitis with cellulitis - Left foot MRI-cellulitis of soft tissue stump with abscesses along distal aspect of soft tissue stump, largest measuring 2.51.31.2 cm, smaller 0.50.50.9 cm. Osteomyelitis of medial cuneiform, intermediate cuneiform and navicular bone with erosive changes and cortical destruction of the medial cuneiform bone. Postoperative day #2 from midtarsal amputation, incision and drainage, rotational flap of left foot with podiatry Plan Continue antibiotic coverage-vancomycin, Zosyn, day #4. Will likely need 6 weeks of IV antibiotics Waiting on surgical biopsy cultures Podiatry following Infectious disease following for long-term antibiotics (2) Cellulitis of left foot Current Visit: Yes Status: Acute Assessment and Plan: As above for osteomyelitis (3) Diabetes Current Visit: Yes Status: Acute Assessment and Plan: Poorly controlled, hemoglobin A1c of 13.3% on admission Blood sugars currently controlled in the 100s to 200s Levemir 20 units HS (will decrease to 10 units this evening as she is nothing by mouth at midnight) ADA diet cont home regimen Lispro 10 U TID as well as sliding scale moderate (4) Foot abscess, left Current Visit: Yes Status: Acute Assessment and Plan: As above, status post I&D (5) Abnormal stress test Current Visit: Yes Status: Acute Assessment and Plan: - Patient had NSTEMI 10/2018 and refused left heart catheter at that time. - Stress test 03/05/2019-gated EF of 39%, left ventricle dilated, large size moderate to severe intensity, primarily fixed inferior, inferior lateral and inferior septal perfusion defect suggestive of a prior infarct. There is mild mandy-infarct ischemia involving the inferior and inferior lateral segments. Medium to 5 severe intensity acute perfusion defect involving the apical segments and apex suggestive of prior infarct. Findings suggest obstructive multivessel coronary artery disease. - Cardiology following, recommend tentative left heart catheter for Sunday - Chest pain-free at this time Plan -Nothing by mouth midnight tonight - Patient agreeable to discuss with cardiology tomorrow DVT Prophylaxis: Subcutaneous heparin - Time Spent with Patient Total time spent is greater than 50% in coordination of care (as documented) at patient's floor/unit and/or counseling patient: Internal Medicine: Result - Labs CBC & Chem 7: 03/23/19 02:50 03/23/19 02:50 Labs: Short CBC 03/23/19 Range/Units 02:50 WBC 5.5 (4.3-11.1) K/mcL Hgb 9.5 L (11.5-15.4) g/dL Hct 28.9 L (35.3-44.9) % Plt Count 149 (140-400) K/mcL Neutrophils # 3.2 (1.6-8.9) K/mcL [facility] 03/23/19 02:50 Sodium 138 Potassium 3.4 L Chloride 108 H Carbon Dioxide 23 BUN 17 Creatinine 1.36 H Glucose 176 H Calcium 8.4 L - VTE Documentation of Mechanical Device: Intermittent pneumatic compression device <Ninfa Fernandez - Last Filed: 03/23/19 12:40> (2) Diabetes Qualifiers: Diabetes mellitus type: type 2 Diabetes mellitus remote computer terminal operator insulin use: with half-way use Diabetes mellitus complication status: with skin complications Diabetes mellitus complication detail: with foot ulcer Qualified Code(s): E11.621 - Type 2 diabetes mellitus with foot ulcer; L97.509 - Non-pressure chronic ulcer of other part of unspecified foot with unspecified severity; Z79.4 - detention (current) use of insulin (3) Osteomyelitis of left foot Qualifiers: Osteomyelitis type: unspecified type Qualified Code(s): M86.9 - Osteomyelitis, unspecified <Bartolome Moreau - Last Filed: 03/23/19 18:28> (1) Osteomyelitis of left foot Qualifiers: Osteomyelitis type: unspecified type Qualified Code(s): M86.9 - Osteomyelitis, unspecified (3) Diabetes Qualifiers: Diabetes mellitus type: type 2 Diabetes mellitus half-way insulin use: with half-way use Diabetes mellitus complication status: with skin complications Diabetes mellitus complication detail: with foot ulcer Qualified Code(s): E11.621 - Type 2 diabetes mellitus with foot ulcer; L97.509 - Non-pressure chronic ulcer of other part of unspecified foot with unspecified severity; Z79.4 - detention (current) use of insulin
[2019-03-23] MEDS: Aspirin Enteric Coated 81 MG Tablet PO SCH (09:19)
[2019-03-23] MEDS: Insulin LISPRO 300 UNITS/3 ML VIAL SQ SCH ×7 (09:21→20:36)
[2019-03-23] MEDS ORDERED: 0.9 % Sodium Chloride 500 ML IVC ONE (10:32)
[2019-03-23] MEDS: Insulin DETEMIR 100 UNIT/ML X5UNITS SQ SCH (20:39)
[2019-03-24] MEDS: Piperacillin/Tazobactam 3.375 GM in 0.9 % Sodium Chloride Mini Bag 100 ML IVPB SCH ×4 (02:12→21:59)
[2019-03-24] MEDS: Insulin LISPRO 300 UNITS/3 ML VIAL SQ SCH ×8 (07:24→21:55)
[2019-03-24] MEDS: Aspirin Enteric Coated 81 MG Tablet PO SCH (07:52)
[2019-03-24 08:48] LABS: Basophils % 0.3 %; Eosinophils # 0.4 K/mcL (0.0-0.6); Eosinophils % 6.2 %; Hematocrit 30.1 % (35.3-44.9); Hemoglobin 9.9 g/dL (11.5-15.4); Immature Granulocytes % 0.5 % (0-4); Lymphocytes % 17.8 %; Mean Corpuscular HGB Conc 32.9 g/dL (31.6-35.5); Mean Corpuscular Hemoglobin 29.6 pg (28.0-33.3); Mean Corpuscular Volume 90.1 fL (83.0-100.0); Mean Platelet Volume 10.3 fL (9.4-12.4); Monocytes # 0.5 K/mcL (0.0-1.3); Monocytes % 9.1 %; Neutrophils # 3.9 K/mcL (1.6-8.9); Platelet Count 147 K/mcL (140-400); Red Blood Count 3.34 M/mcL (3.82-4.97); Red Cell Distribution Width 12.3 % (11.5-14.5); Segmented Neutrophils % 66.1 %
[2019-03-24 09:12] LABS: Calcium 9.1 mg/dL (8.6-10.3); Potassium 4.3 mEq/L (3.5-5.1)
--- NOTE | 2019-03-24 10:23 | Internal Med Progress Note ---
<Ninfa Fernandez - Last Filed: 03/24/19 12:50> Hospitalist Progress Note - Encounter Date of Encounter: 03/24/19 - Exam Vitals: Temp Pulse Resp BP Pulse Ox 98.3 F 76 18 177/95 99 03/24/19 11:02 03/24/19 11:02 03/24/19 11:02 03/24/19 11:02 03/24/19 11:02 - Assessment and Plan (1) Cellulitis of left foot Current Visit: Yes Status: Acute (2) Diabetes Current Visit: Yes Status: Acute (3) Osteomyelitis of left foot Current Visit: Yes Status: Acute (4) Foot abscess, left Current Visit: Yes Status: Acute (5) Abnormal stress test Current Visit: Yes Status: Acute - Time Spent with Patient Total time spent is greater than 50% in coordination of care (as documented) at patient's floor/unit and/or counseling patient: Internal Medicine: Result - Labs CBC & Chem 7: 03/24/19 08:29 03/24/19 08:29 Labs: Short CBC 03/24/19 Range/Units 08:29 WBC 5.8 (4.3-11.1) K/mcL Hgb 9.9 L (11.5-15.4) g/dL Hct 30.1 L (35.3-44.9) % Plt Count 147 (140-400) K/mcL Neutrophils # 3.9 (1.6-8.9) K/mcL BMP 03/24/19 08:29 Sodium 138 Potassium 4.3 Chloride 108 H Carbon Dioxide 20 L BUN 22 H Creatinine 1.25 H Glucose 221 H Calcium 9.1 Consult Discharge Plan - Plan Instructions: Cellulitis (GEN), Diabetic Foot Care (DC), Diabetes Mellitus Type 2 in Adults (DC), Basic Carbohydrate Counting (DC), Acute Wound Care (DC), Diabetic Foot Ulcers (DC) Referrals: Bernardino Burkett MD [Primary Care Provider] - - Attending Attestation I examined this patient and my medical decision-making was reviewed with the Resident Physician Dr Park. I agree with the documented findings, disposition and treatment plan as described except to the extent set forth below. Ms Amaya is admitted with foot cellulitis, abscess and osteomyelitis requiring surgical intervention She had a very recent abnormal outpt stress test requiring intervention that may occur this admission awake, no pain, denies fevers or chills. tearful discussing need for lhc this admission, but agreeable. cont with good oral intake of water. no dysuria, hematuria or bladder pain gen- alert, awake,appears stated age cv- reg rate and rhythm, normal s1,s2, no le edema lungs- ctabl, normal resp effort on room air skin- left foot dressed, c/d/i, no jed drain present neuro- AAOx3 Left Foot CEllulitis / Abscess/ Osteo s/p I&D, midtarsal amputation and skin flap -awaiting bone and wound cxs -podiatry high suspicion remnant infected bone, will require long course IV abx -id follwoing - cont vanc + zosyn CArds evaluated for pre op risk assessment Abnormal stress test outpt 03/05/19- appreciate cards eval, Recommend LHC prior to surgery,patient refusing. -hold on LHC as anabella resolving, npo pmn for possibe cath in am, insulin remains adjsuted for overnight and IVF hydration pre cath Anemia, pre operatively noted- suspect 2/2 wound, stable, cont to monitor in post operative setting, hemodynamically stable Hypokalemia resolved ANABELLA suspect intrinsic related to vanc + zosyn, no indication this is pre or post renal in nature- pharm to renal dose vanc + zosyn, pre cath IVF hydration in prep for dye load, aovid nephro toxins, cont good oral intake of fluids, check UA further diagnoses and plan as noted by resident <Annalisa Park - Last Filed: 03/24/19 16:04> Hospitalist Progress Note - Encounter Date of Encounter: 03/24/19 Time of Encounter: 10:15 - Subjective Interval History: Patient seen and examined at bedside today. She states she is doing well, the drain from her surgical site was removed yesterday. She states that she is in good spirits however is anxious about left heart catheter. Discussed need to postpone left heart catheter secondary to renal function. She states she occasionally has some mild pain at surgical site however feels well overall. She denies nausea, vomiting, fever, chills, chest pain, shortness of breath, abdominal pain, constipation, melena, chest, dysuria, hematuria, calf pain. - Exam Vitals: Temp Pulse Resp BP Pulse Ox 98.1 F 77 18 157/89 95 03/24/19 06:44 03/24/19 06:44 03/24/19 06:44 03/24/19 06:44 03/24/19 06:44 Exam: Gen.: Vitals noted. No acute distress. AAOx3, resting comfortably in chair. HEENT: PERRL/EOMI, oropharynx clear, Normocephalic, atraumatic, MMM, poor dentition Cardiac: RRR, no murmur, +S1/S2, No BLE edema Pulmonary: CTA bilaterally, no wheezes, rales or rhonchi, equal chest expansion, unlabored breathing Abdomen: soft, nontender, BS noted, no guarding, no palpable HSM Skin: warm and dry, dressing over left foot in place, no sign of bleeding or drainage. No erythema or edema of left lower extremity. MSK: No joint swelling noted, gait no assessed while in bed. Non tender calf or clubbing Neuro: A&Ox3, moves all extremities, no focal deficits. Psych: Appropriate mood and behavior, AOx3, pleasant but anxious - Assessment and Plan (1) Osteomyelitis of left foot Current Visit: Yes Status: Acute Assessment and Plan: Presented from podiatry office with concern for osteomyelitis as well as abscess and cellulitis of left foot Status post transmetatarsal imitation of left foot in 2016 with surgery for nonhealing ulcer 10/2018 Left foot [id number] soft tissue swelling of stump of midfoot amputation, possible osteo-myelitis with cellulitis Left foot MRI-cellulitis of soft tissue stump with abscesses along distal aspect of soft tissue stump, largest measuring 2.51.31.2 cm, smaller 0.50.50.9 cm. Osteomyelitis of medial cuneiform, intermediate cuneiform and navicular bone with erosive changes and cortical destruction of the medial cuneiform bone. Postop day 3 of midtarsal amputation, incision and drainage, rotational skin flap- per op note, necrotic bone and soft tissue was noted cultures taken No sirs criteria met ESR 63 CRP 12 Blood cultures showed no growth Acid fast stain negative for acid-fast bacilli Tissue culture no growth to date Anaerobic culture no growth to date Continue antibiotic coverage, vancomycin, Zosyn Surgical biopsy cultures remain pending Podiatry and infectious disease following (2) Cellulitis of left foot Current Visit: Yes Status: Acute Assessment and Plan: See above for management (3) Foot abscess, left Current Visit: Yes Status: Acute Assessment and Plan: See above for management (4) Abnormal stress test Current Visit: Yes Status: Acute Assessment and Plan: Patient had NSTEMI 10/2018 and refused left heart catheter at that time. Stress test 03/05/2019-gated EF of 39%, left ventricle dilated, large size moderate to severe intensity, primarily fixed inferior, inferior lateral and inferior septal perfusion defect suggestive of a prior infarct. There is mild mandy-infarct ischemia involving the inferior and inferior lateral segments. Medium to 5 severe intensity acute perfusion defect involving the apical segments and apex suggestive of prior infarct. Findings suggest obstructive multivessel coronary artery disease. Initial plan was for left heart catheter today however patient did sustain AK I most likely secondary to antibiotic coverage with vancomycin as well as Zosyn Left heart catheter postponed Renal function slowly improving Will give fluids this evening and overnight in anticipation of left heart catheter tomorrow Nothing by mouth at midnight (5) Uncontrolled diabetes mellitus Current Visit: Yes Status: Acute Assessment and Plan: Hemoglobin A1c 13.3 Continue sliding scale insulin Levemir 10 units at bedtime Lispro 10 units subcutaneous 3 times a day with meals Continue to monitor (6) Acute kidney injury superimposed on CKD Current Visit: Yes Status: Acute Assessment and Plan: Patient sustained acute kidney injury on top of stage III CKD Most likely secondary to antibiotic coverage with vancomycin, Zosyn Peak creatinine at 1.36 Currently decreasing at 1.25 Patient will be given fluids in anticipation of left heart catheter tomorrow as well as to improve renal function Continue to renally dose medications and avoid nephrotoxic agents as able Continue to monitor (7) Anemia Current Visit: Yes Status: Acute Assessment and Plan: Hemodynamically stable Patient hemoglobin 12.4 on admission Currently 9.9 Suspect secondary to wound Continue to monitor DVT Prophylaxis: SCDs - Time Spent with Patient Total time spent is greater than 50% in coordination of care (as documented) at patient's floor/unit and/or counseling patient: Internal Medicine: Result - Labs CBC & Chem 7: 03/24/19 08:29 03/24/19 08:29 Labs: Short CBC 03/24/19 Range/Units 08:29 WBC 5.8 (4.3-11.1) K/mcL Hgb 9.9 L (11.5-15.4) g/dL Hct 30.1 L (35.3-44.9) % Plt Count 147 (140-400) K/mcL Neutrophils # 3.9 (1.6-8.9) K/mcL BMP 03/24/19 08:29 Sodium 138 Potassium 4.3 Chloride 108 H Carbon Dioxide 20 L BUN 22 H Creatinine 1.25 H Glucose 221 H Calcium 9.1 - VTE Documentation of Mechanical Device: Intermittent pneumatic compression device <Ninfa Fernandez - Last Filed: 03/24/19 12:50> (2) Diabetes Qualifiers: Diabetes mellitus type: type 2 Diabetes mellitus marketing admin insulin use: with penitentiary use Diabetes mellitus complication status: with skin complications Diabetes mellitus complication detail: with foot ulcer Qualified Code(s): E11.621 - Type 2 diabetes mellitus with foot ulcer; L97.509 - Non-pressure chronic ulcer of other part of unspecified foot with unspecified severity; Z79.4 - [facility] (current) use of insulin (3) Osteomyelitis of left foot Qualifiers: Osteomyelitis type: unspecified type Qualified Code(s): M86.9 - Osteomyelitis, unspecified <Annalisa Park - Last Filed: 03/24/19 16:04> (1) Osteomyelitis of left foot Qualifiers: Osteomyelitis type: unspecified type Qualified Code(s): M86.9 - Osteomyelitis, unspecified (7) Anemia Qualifiers: Anemia type: unspecified type Qualified Code(s): D64.9 - Anemia, unspecified
--- NOTE | 2019-03-24 11:36 | Cardiology Progress Note ---
Date of Encounter: 03/24/19 Time of Encounter: 09:30 Assessment and Plan (1) Foot abscess, left Current Visit: Yes Status: Acute Per cardiology: -Admitted with worsening foot abscess. -Management per primary and podiatry services. (2) Abnormal stress test Current Visit: Yes Status: Acute Per cardiology: -Patient with recent NSTEMI 10/2018, patient refused LHC. TTE that admission with LVEF mildly reduced, wall motion abnormalities noted. -No acute ischemic ECG changes noted. -Stress 03/2019 with Gated EF = 39%. The left ventricle is dilated. LVEDV = 153 mL. Large sized, moderate to severe intensity, primarily fixed inferior, inferolateral, and inferoseptal perfusion defect suggestive of a prior infarct. There is mild mandy-infarct ischemia involving the inferior and inferolateral segments, SDS 5. Medium to large sized, severe intensity to absent perfusion defect involving the apical segments and apex suggestive of a prior infarct. Findings suggests obstructive multi-vessel CAD. -Denies chest pain, shortness of breath. -Plan for LHC when able. Now with ANABELLA, improving. Discussed with patient, now with ANABELLA, will hold on LHC today. -Will make NPO after midnight for possible LHC in am pending labs. Discussion w patient/family: The assessment and plan as outlined above was discussed with the patient and/or family members who expressed understanding and agreement. All questions were answered. Thank you for involving us in the care of your patient. Please call with any questions. Discussed and reviewed with Subjective Principal diagnosis: s/p foot surgery Interval history: Patient denies complaints today. Denies chest pain. Objective Vital Signs, Last 4 Hours Temp Pulse Resp BP Pulse Ox 03/24/19 11:02 98.3 F 76 18 177/95 99 General: Conversant, No Apparent Distress HEENT: Atraumatic, Normocephaly, Mucus Membranes Moist Neck: No JVD, Normal carotid pulses Cardiac: Reg Rate and Rhythm, Normal S1 and S2, No Murmur Lungs: Normal Breath Sounds, No Wheeze, Rales, Rhonchi Neuro: Alert and responsive, No focal deficits noted Abdomen: Soft, Non-Tender Skin: No rashes noted on visualized skin, Other (Left foot dressing noted. ) Musculoskeletal: No Chest Wall Tenderness Extremities: No Clubbing, No Cyanosis, No Edema, Normal Pulses Results 03/24/19 08:29 03/24/19 08:29 Lab Results Active Medications Acetaminophen (Tylenol) 650 mg PO Q6HR PRN PRN Reason: Mild Pain/Fever Stop: 09/18/19 15:02 Hydrocodone Bitart/Acetaminophen (Graham 5-325 Mg) 1 tab PO Q6HR PRN PRN Reason: Moderate Pain Stop: 09/18/19 15:02 Aspirin (Aspirin Ec) 81 mg PO DAILY [facility] Stop: 09/19/19 09:01 Last Admin: 03/24/19 07:52 Dose: 81 mg Documented by: Dextrose/Water (Dextrose 50% (Syg)) 25 ml IVP AD PRN PRN Reason: Hypoglycemia Stop: 09/18/19 15:07 Docusate Sodium (Colace) 100 mg PO BID PRN PRN Reason: Constipation Stop: 09/18/19 21:01 Glucagon (Glucagen) 1 mg IM ONCE PRN PRN Reason: Hypoglycemia Stop: 09/18/19 15:07 Glucose (Gluctose) 15 gm PO ONCE PRN PRN Reason: Hypoglycemia Stop: 09/18/19 15:07 Glucose (Gluctose) 30 gm PO ONCE PRN PRN Reason: Hypoglycemia Stop: 09/18/19 15:07 Heparin Sodium (Porcine) (Heparin) 5,000 unit SQ Q12HR [facility] Stop: 09/18/19 18:01 Last Admin: 03/22/19 17:06 Dose: Not Given Documented by: Dextrose (Dextrose 5%) 1,000 mls @ 100 mls/hr IVC .Q10H PRN PRN Reason: HYPOGLYCEMIA Stop: 09/18/19 15:07 Piperacillin Sod/Tazobactam (Sod 3.375 gm/ Sodium Chloride) 100 mls @ 25 mls/hr IVPB Q8H [facility] Stop: 09/18/19 18:01 Last Admin: 03/24/19 02:12 Dose: 25 mls/hr Documented by: Vancomycin HCl 750 mg/ Sodium (Chloride) 250 mls @ 250 mls/hr IVPB Q12H [facility] Stop: 09/21/19 08:01 Last Admin: 03/24/19 07:43 Dose: 250 mls/hr Documented by: Insulin Detemir (Levemir) 10 unit SQ HS [facility] Stop: 09/22/19 21:01 Last Admin: 03/23/19 20:39 Dose: 10 unit Documented by: Insulin Human Lispro (Humalog) 10 units SQ TIDWM [facility] Stop: 09/18/19 17:01 Last Admin: 03/24/19 07:24 Dose: Not Given Documented by: Insulin Human Lispro (Humalog) 0 units SQ TIDAC [facility]; Protocol Stop: 09/18/19 16:31 Last Admin: 03/24/19 07:56 Dose: Not Given Documented by: Insulin Human Lispro (Humalog) 0 units SQ HS [facility]; Protocol Stop: 09/18/19 21:01 Last Admin: 03/23/19 20:36 Dose: Not Given Documented by: Naloxone HCl (Narcan) 0.4 mg IVP Q2MPRN PRN PRN Reason: SEE COMMENTS Stop: 09/18/19 15:02 Ondansetron HCl (Zofran Odt) 4 mg SL Q8HR PRN PRN Reason: Nausea And Vomiting Stop: 09/18/19 15:02 - Imaging and Cardiology Chest Xray: report reviewed Echo: report reviewed - EKG Interpretation EKG results cardiology: other (Telemetry reviewed with average HR previous 12 hours noted to be 80, SR. PVCs and PACs noted.) - VTE Documentation of Mechanical Device: Intermittent pneumatic compression device Consult Discharge Plan - Plan Instructions: Cellulitis (GEN), Diabetic Foot Care (DC), Diabetes Mellitus Type 2 in Adults (DC), Basic Carbohydrate Counting (DC), Acute Wound Care (DC), Diabetic Foot Ulcers (DC) Referrals: Bernardino Burkett MD [Primary Care Provider] -
--- NOTE | 2019-03-24 13:36 | Infectious Disease Progress No ---
ID Progress Note Date of Encounter: 03/24/19 Time of Encounter: 13:34 - Subjective Subjective: Patient seen and examined. Appears comfortable. Friend at bedside. Denies any chest pain no shortness of breath no nausea no vomiting no diarrhea no urinary symptoms. Patient states foot pain is under control. Vital signs reviewed afebrile Labs reviewed Intra-Op cultures no growth to date - Objective CBC & Chem 7: 03/25/19 02:04 03/25/19 02:04 - Exam Vitals: Temp Pulse Resp BP Pulse Ox 98.3 F 76 18 158/74 99 03/24/19 11:02 03/24/19 11:02 03/24/19 11:02 03/24/19 12:00 03/24/19 11:02 Exam: GENERAL: Comfortable. Laying in bed NAD HEENT: ELIU, EOMI LUNGS: Good air sounds bilaterally, no wheezing or rhonchi CV: RRR, S1 S2 ABDOMEN: Soft, nontender, + bowel sounds EXT: Adequate perfusion. foot surgically wrapped. I didnt unwrap it NEURO: A&OX3; no focal deficit - Assessment and Plan (1) Osteomyelitis of left foot Current Visit: Yes Status: Acute Location: Medial cuneiform, intermediate cuneiform, and navicular bone left foot. Causative organism: Unclear. Intra-Op cultures no growth to date, keep in mind the patient has been on antibiotics for approximately 48 hours prior to surgery Likely secondary to chronic nonhealing surgical site. ESR elevated at 63, CRP 12. 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 Qualifiers: Osteomyelitis type: unspecified type Qualified Code(s): M86.9 - Osteomyelitis, unspecified SNOMED Code(s): 2838001698562613 (2) Foot abscess, left Current Visit: Yes Status: Acute Location: Left foot. Causative organism: Unclear. Likely secondary to chronic nonhealing surgical site. MRI of the left foot shows cellulitis of soft tissue stump with abscesses along the distal aspect of the soft tissue stump, the largest measuring 2.5 x 1.3 x 1.2 cm and the smaller abscess measuring 5 x 5 x 9 mm. Dietary consult and following. Status post I&D 03/21/2019 Currently on vancomycin and Zosyn. SNOMED Code(s): 91743725954637317 (3) Cellulitis of left foot Current Visit: Yes Status: Acute Location: Left foot. Causative organism: Unclear. Likely secondary to chronic nonhealing surgical site. Currently on vancomycin and Zosyn. SNOMED Code(s): 719381833 (4) Diabetes Current Visit: Yes Status: Acute Uncontrolled. Hemoglobin A1c 13.3%. Recommend aggressive glucose monitoring and control to promote wound healing and prevent reinfection. Qualifiers: Diabetes mellitus type: type 2 Diabetes mellitus mcfp insulin use: with exterminator use Diabetes mellitus complication status: with skin complications Diabetes mellitus complication detail: with foot ulcer Qualified Code(s): E11.621 - Type 2 diabetes mellitus with foot ulcer; L97.509 - Non-pressure chronic ulcer of other part of unspecified foot with unspecified severity; Z79.4 - remote computer terminal operator (current) use of insulin SNOMED Code(s): 42044134 (5) Coronary artery disease Current Visit: Yes Status: Acute SNOMED Code(s): 69032594 (6) Hypertension Current Visit: No Status: Chronic Qualifiers: Hypertension type: essential hypertension Qualified Code(s): I10 - Essential (primary) hypertension SNOMED Code(s): 29332676 - Recommendations Recommendations: Continue vancomycin with goal vancomycin trough around 15 Continue Zosyn Monitor kidney function closely, there was a bump in the creatinine Adequate glucose control Await cultures to finalize Will tailor antibiotics according to culture results. Anything comes back positive Duration of treatment depends on the clinical picture and inflammatory markers - VTE Documentation of Mechanical Device: Intermittent pneumatic compression device Consult Discharge Plan - Plan Instructions: Cellulitis (GEN), Diabetic Foot Care (DC), Diabetes Mellitus Type 2 in Adults (DC), Basic Carbohydrate Counting (DC), Acute Wound Care (DC), Diabetic Foot Ulcers (DC) Referrals: Bernardino Burkett MD [Primary Care Provider] -
--- NOTE | 2019-03-24 14:09 | Podiatry Progress Note ---
Date of Encounter: 03/24/19 Time of Encounter: 13:30 - Assessment and Plan (1) Foot abscess, left Current Visit: Yes Status: Acute Assessment: -Post op day #3 1. Rotational flap greater than 10.1 sq cm, left foot, 2. Midtarsal amputation (Chopart), left foot, and 3. Incision and drainage abscess below fascia, left foot by Dr. Lee on 03/21/2019 -Dressing dry and intact, no strike through noted -Skin warm and no swelling above dressing -No pain with calf squeeze -WBC 5.8 -Surgical biopsy culture, anaerobic culture, and blood cultures preliminary -No Acid fast Bacilli Plan: -Will change dressing tomorrow -ID onboard, any antibiotic recommendation appreciated -Will continue to monitor (2) Osteomyelitis of left foot Current Visit: Yes Status: Acute Assessment: -Post op day #3 1. Rotational flap greater than 10.1 sq cm, left foot, 2. Midtarsal amputation (Chopart), left foot, and 3. Incision and drainage abscess below fascia, left foot by Dr. Lee on 03/21/2019 -Dressing dry and intact, no strike through noted -Skin warm and no swelling above dressing -No pain with calf squeeze -WBC 5.8 -Surgical biopsy culture, anaerobic culture, and blood cultures preliminary -No Acid fast Bacilli Plan: -Will change dressing tomorrow -ID onboard, any antibiotic recommendation appreciated -Will continue to monitor Qualifiers: Osteomyelitis type: unspecified type Qualified Code(s): M86.9 - Osteomyelitis, unspecified Subjective Principal diagnosis: s/p foot surgery Interval history: Post op day #3 1. Rotational flap greater than 10.1 sq cm, left foot, 2. Midtarsal amputation (Chopart), left foot, and 3. Incision and drainage abscess below fascia, left foot by Dr. Lee on 03/21/2019 Patient is alert and oriented x 3, no acute events noted, sitting in bed talking with family. She denies any chest pain, shortness of breath, or calf pain. Patient denies any fever, chills, an/v/d. Dressing dry and intact. Objective - Vital Signs Vital Signs: Vital Signs Temp Pulse Resp BP Pulse Ox 03/24/19 12:00 158/74 03/24/19 11:02 98.3 F 76 18 177/95 99 03/24/19 06:44 98.1 F 77 18 157/89 95 03/24/19 03:20 98.0 F 82 18 154/87 97 03/23/19 23:07 97.5 F L 94 18 162/88 96 03/23/19 19:57 98.3 F 75 18 145/79 97 03/23/19 14:56 97.5 F L 77 16 145/85 97 Intake and Output 03/23/19 03/24/19 03/24/19 23:59 07:59 15:59 Intake Total 600 / 1540 0 / 100 100 / 100 Output Total 0 / 6 0 / 0 Balance 600 / 1534 0 / 100 100 / 100 Intake: IV Fluids 350 / 1050 Zosyn 3.375 GM In 0.9 % Sodium 100 / 300 Chloride (Mini-Bag +) 100 ML @ 25 mls/hr IVPB Q8H [facility] Rx#: [id number] Vancocin 750 MG In 0.9 % Sodium 250 / 750 Chloride 250 ML @ 250 mls/hr IVPB Q12H [facility] Rx#:[id number] Oral 250 / 490 0 / 100 100 / 100 Output: Urine 0 / 0 0 / 0 Other: Meal Lunch Percent of Meal Consumed 95% # Voids 1 1 4 # Bowel Movements 1 Weight 101.63 kg Blood Glucose* 149 189 205 Patient Weight 03/24/19 23:59 Weight 101.63 kg - Exam Exam: Constitutional: Alert and oriented x 3, no acute distress noted. Vascular: No swelling above dressing noted, no pain with calf squeeze, skin warm to touch Neurological: Decreased protective sensation Dermatological: Dressing dry and intact, no strike through noted Musculoskeletal: Normal tone - Lab Result Diagrams: 03/24/19 08:29 03/24/19 08:29 Labs: Abnormal lab results RBC 3.34 M/mcL (3.82-4.97) L 03/24/19 08:29 Hgb 9.9 g/dL (11.5-15.4) L 03/24/19 08:29 Hct 30.1 % (35.3-44.9) L 03/24/19 08:29 Plt Count 138 K/mcL (140-400) L 03/22/19 06:02 ESR 63 mm/hr (0-15) H 03/20/19 06:54 Sodium 133 mEq/L (136-145) L 03/19/19 11:59 Potassium 3.4 mEq/L (3.5-5.1) L 03/23/19 02:50 Chloride 108 mEq/L (98-107) H 03/24/19 08:29 Carbon Dioxide 20 mEq/L (23-29) L 03/24/19 08:29 BUN 22 mg/dL (6-20) H 03/24/19 08:29 1.25 mg/dL (0.60-1.20) H 03/24/19 08:29 Est GFR ( Amer) 54 (> 60) L 03/24/19 08:29 Est GFR (Non-Af Amer) 44 (> 60) L 03/24/19 08:29 Glucose 221 mg/dL (70-105) H 03/24/19 08:29 POC Glucose 149 mg/dL (70-99) H 03/23/19 20:17 13.3 % (-5.6) H 03/19/19 11:59 Calcium 8.4 mg/dL (8.6-10.3) L 03/23/19 02:50 12 mg/L (Less than 10) H 03/20/19 06:54 Vancomycin Trough 15 mcg/mL (5-10) H 03/23/19 09:34 Microbiology, Last 48 Hours 03/21/19 16:39 Anaerobic Culture - Preliminary Surgery At this time, no anaerobic growth is present. The culture will be finalized after 5 days of incubation. 03/21/19 16:39 Surgical Biopsy Culture - Preliminary Surgery 03/21/19 16:30 Acid Fast Stain - Final Surgery - VTE Documentation of Mechanical Device: Intermittent pneumatic compression device Consult Discharge Plan - Plan Instructions: Cellulitis (GEN), Diabetic Foot Care (DC), Diabetes Mellitus Type 2 in Adults (DC), Basic Carbohydrate Counting (DC), Acute Wound Care (DC), Diabetic Foot Ulcers (DC) Referrals: Bernardino Burkett MD [Primary Care Provider] -
[2019-03-24] MEDS: 0.9 % Sodium Chloride 1,000 ML IVC SCH (17:58)
[2019-03-24] MEDS: Piperacillin/Tazobactam 3.375 GM in 0.9 % Sodium Chloride Mini Bag 100 ML IVP SCH (21:54)
[2019-03-24] MEDS: *HR* Heparin 5,000 UNIT/ML VIAL SQ SCH (21:54)
[2019-03-24] MEDS: Insulin DETEMIR 100 UNIT/ML X5UNITS SQ SCH (21:59)
[2019-03-25 02:38] LABS: Basophils % 0.4 %; Eosinophils # 0.3 K/mcL (0.0-0.6); Eosinophils % 5.8 %; Hematocrit 27.8 % (35.3-44.9); Hemoglobin 9.1 g/dL (11.5-15.4); Immature Granulocytes % 0.6 % (0-4); Lymphocytes # 1.3 K/mcL (0.6-4.6); Lymphocytes % 24.8 %; Mean Corpuscular HGB Conc 32.7 g/dL (31.6-35.5); Mean Corpuscular Hemoglobin 29.4 pg (28.0-33.3); Mean Corpuscular Volume 89.7 fL (83.0-100.0); Mean Platelet Volume 10.2 fL (9.4-12.4); Monocytes # 0.6 K/mcL (0.0-1.3); Monocytes % 10.6 %; Platelet Count 160 K/mcL (140-400); Red Cell Distribution Width 12.5 % (11.5-14.5); Segmented Neutrophils % 57.8 %
[2019-03-25 02:39] LABS: Bilirubin,Urine Negative (Negative); Blood,Urine Small (Negative); Clarity,Urine Clear (Clear); Color,Urine Yellow (Yellow); Glucose,Urine (UA) Normal (Normal); Ketones,Urine Negative (Negative); Leukocyte Esterase,Urine Negative (Negative); Nitrite,Urine Negative (Negative); PH,Urine 5.5 pH Units (5.0-8.0); Protein,Urine 30 mg/dL (Neg-Trace); Specific Gravity,Urine 1.015 (1.010-1.025); Urobilinogen,Urine Normal (Normal)
[2019-03-25 02:42] LABS: Bacteria,Urine None Seen per hpf (None-Few); Hyaline Casts,Urine None Seen per lpf (None-Few); RBC,Urine 0-3 per hpf (0-3); Squamous Epithelial Cell,Urine Moderate per lpf (None-Few); WBC,Urine 0-3 per hpf (0-3)
[2019-03-25 02:59] LABS: BUN/Creatinine Ratio 18 (6-26); Blood Urea Nitrogen 19 mg/dL (6-20); Calcium 8.3 mg/dL (8.6-10.3); Carbon Dioxide 22 mEq/L (23-29); Chloride 110 mEq/L (98-107); Glucose 159 mg/dL (70-105); Osmolality,Calculated 298 (280-300); Potassium 3.8 mEq/L (3.5-5.1); Sodium 141 mEq/L (136-145); eGFR For Non-African Americans 55 (> 60)
[2019-03-25] MEDS: Piperacillin/Tazobactam 3.375 GM in 0.9 % Sodium Chloride Mini Bag 100 ML IVPB SCH ×3 (05:11→21:28)
[2019-03-25] MEDS: 0.9 % Sodium Chloride 1,000 ML IVC SCH (05:18)
[2019-03-25] MEDS: Aspirin Enteric Coated 81 MG Tablet PO SCH (07:53)
[2019-03-25] MEDS: Insulin LISPRO 300 UNITS/3 ML VIAL SQ SCH ×7 (08:17→21:29)
--- NOTE | 2019-03-25 10:00 | Infectious Disease Progress No ---
ID Progress Note Date of Encounter: 03/25/19 Time of Encounter: 09:58 - Subjective Subjective: Patient seen and examined. No acute events noted overnight. Postop day #4 status post I&D of the left foot. Cultures are negative. Patient states overall she feels okay. Left heart catheter pending completion today. Denies fevers, chills, rigors. Denies chest pain, shortness of breath, or cough. Denies nausea, vomiting, diarrhea, or constipation. Denies abdominal pain or urinary complaints. States her appetite is good. Last bowel movement was yesterday. Denies oral thrush or skin lesions. Reports minimal pain at the surgical site. - Objective CBC & Chem 7: 03/27/19 02:10 03/27/19 02:10 - Exam Vitals: Temp Pulse Resp BP Pulse Ox 97.7 F 82 18 155/75 94 03/25/19 06:54 03/25/19 06:54 03/25/19 06:54 03/25/19 06:54 03/25/19 06:54 Exam: Head: Atraumatic, normal inspection, normocephalic. Eye: EOMI, PERRLA, no scleral icterus noted. ENT: Mucous membranes moist. No odontogenic infection noted. Neck: Normal inspection, no meningismus. Respiratory: Clear to auscultation. No rales, respiratory distress, rhonchi, or wheezes noted. Cardiovascular: Regular rate and rhythm, S1 and S2 audible. No murmurs, rubs, or gallops. GI: Soft, nondistended, normal bowel sounds. Extremities:No joint swelling, pedal edema, or tenderness noted. Left foot dressing clean, dry, and intact. Back: Normal inspection. No vertebral tenderness noted. Neurological: Alert, oriented 3, no focal deficits. Psychiatric: normal affect, normal mood. Skin: Dry, intact, warm. Normal color. No rashes. - Assessment and Plan (1) Osteomyelitis of left foot Current Visit: Yes Status: Acute Location: Medial cuneiform, intermediate cuneiform, and navicular bone left foot. Causative organism: Unclear. Intra-Op cultures no growth to date, keep in mind the patient has been on antibiotics for approximately 48 hours prior to surgery. No bone specimens were sent to pathology. Likely secondary to chronic nonhealing surgical site. ESR elevated at 63, CRP 12. 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 Hernandez. Operative note reviewed. Currently on vancomycin and Zosyn. Qualifiers: Osteomyelitis type: unspecified type Qualified Code(s): M86.9 - Osteomyelitis, unspecified SNOMED Code(s): 5885450846507379 (2) Foot abscess, left Current Visit: Yes Status: Acute Location: Left foot. Causative organism: Unclear. Likely secondary to chronic nonhealing surgical site. MRI of the left foot shows cellulitis of soft tissue stump with abscesses along the distal aspect of the soft tissue stump, the largest measuring 2.5 x 1.3 x 1.2 cm and the smaller abscess measuring 5 x 5 x 9 mm. Dietary consult and following. Status post I&D 03/21/2019. Currently on vancomycin and Zosyn. SNOMED Code(s): 72811769978355110 (3) Cellulitis of left foot Current Visit: Yes Status: Acute Location: Left foot. Causative organism: Unclear. Likely secondary to chronic nonhealing surgical site. Currently on vancomycin and Zosyn. SNOMED Code(s): 696171228 (4) Diabetes Current Visit: Yes Status: Acute Uncontrolled. Hemoglobin A1c 13.3%. Recommend aggressive glucose monitoring and control to promote wound healing and prevent reinfection. Qualifiers: Diabetes mellitus type: type 2 Diabetes mellitus dedicated intermodal truck driver insulin use: with dedicated intermodal truck driver use Diabetes mellitus complication status: with skin complications Diabetes mellitus complication detail: with foot ulcer Qualified Code(s): E11.621 - Type 2 diabetes mellitus with foot ulcer; L97.509 - Non-pressure chronic ulcer of other part of unspecified foot with unspecified severity; Z79.4 - termite exterminator (current) use of insulin SNOMED Code(s): 07795771 (5) Coronary artery disease Current Visit: Yes Status: Acute Cardiology consult. Left heart catheter pending completion today. Qualifiers: Coronary Disease-Associated Artery/Lesion type: [place] artery [place] vs. transplanted heart: [place] heart Associated angina: without angina Qualified Code(s): I25.10 - Atherosclerotic heart disease of [place] coronary artery without angina pectoris SNOMED Code(s): 26291189 (6) Hypertension Current Visit: No Status: Chronic Qualifiers: Hypertension type: essential hypertension Qualified Code(s): I10 - Essential (primary) hypertension SNOMED Code(s): 20363144 - Recommendations Recommendations: Await blood cultures to finalize. Wound care and activity restrictions per the podiatry team. Diabetes management per the primary team. Continue vancomycin IV. Pharmacy to dose. Goal trough approximately 15. Continue Zosyn 3.375 g IV every 8 hours. Duration of treatment depends on the clinical picture. Given that the patient is at high risk for limb loss, we will likely need to be aggressive with antibiotics. Unfortunately, we do not have positive cultures at this point so we will likely need to treat with broad-spectrum antibiotics for 4-6 weeks. We will discuss with podiatry. Monitor renal function for drug toxicity and dose adjust antibiotics. - VTE Documentation of Mechanical Device: Intermittent pneumatic compression device Consult Discharge Plan - Plan Instructions: Cellulitis (GEN), Diabetic Foot Care (DC), Diabetes Mellitus Type 2 in Adults (DC), Basic Carbohydrate Counting (DC), Acute Wound Care (DC), Diabetic Foot Ulcers (DC) Referrals: Bernardino Burkett MD [Primary Care Provider] - Celeste Kim CNP [Advanced Practice Nurse] - 04/10/19 2:05 pm - Attending Attestation I have personally performed a face to face evaluation on this patient. I have reviewed and agree with the care plan. History and Exam by me shows: Assessment and plan: 1.Osteomyelitis of the left foot causative organism not clear Intra-Op cultures no growth to date 2.Left foot abscess 2 status post I&D 03/21/2019 cultures negative 3.Cellulitis of the left foot 4.Diabetes mellitus type 2 5.Coronary artery disease 6.Hypertension Recommendations: Continue vancomycin IV. Pharmacy to dose. Goal trough approximately 15. Continue Zosyn 3.375 g IV every 8 hours. Duration of treatment depends on the clinical picture. Given that the patient is at high risk for limb loss, we will likely need to be aggressive with antibiotics. Unfortunately, we do not have positive cultures at this point so we will likely need to treat with broad-spectrum antibiotics for 4-6 weeks. We will discuss with podiatry. Monitor renal function for drug toxicity and dose adjust antibiotics.
--- NOTE | 2019-03-25 10:21 | Internal Med Progress Note ---
<Ninfa Fernandez - Last Filed: 03/25/19 14:12> Hospitalist Progress Note - Encounter Date of Encounter: 03/25/19 - Exam Vitals: Temp Pulse Resp BP Pulse Ox 97.8 F 80 16 159/87 96 03/25/19 13:33 03/25/19 13:33 03/25/19 13:33 03/25/19 13:33 03/25/19 13:33 - Assessment and Plan (1) Cellulitis of left foot Current Visit: Yes Status: Acute (2) Diabetes Current Visit: Yes Status: Acute (3) Osteomyelitis of left foot Current Visit: Yes Status: Acute (4) Foot abscess, left Current Visit: Yes Status: Acute (5) Abnormal stress test Current Visit: Yes Status: Acute - Time Spent with Patient Total time spent is greater than 50% in coordination of care (as documented) at patient's floor/unit and/or counseling patient: Internal Medicine: Result - Labs CBC & Chem 7: 03/25/19 02:04 03/25/19 02:04 Labs: Short CBC 03/25/19 Range/Units 02:04 WBC 5.2 (4.3-11.1) K/mcL Hgb 9.1 L (11.5-15.4) g/dL Hct 27.8 L (35.3-44.9) % Plt Count 160 (140-400) K/mcL Neutrophils # 3.0 (1.6-8.9) K/mcL BMP 03/25/19 02:04 Sodium 141 Potassium 3.8 Chloride 110 H Carbon Dioxide 22 L BUN 19 Creatinine 1.03 Glucose 159 H Calcium 8.3 L Urine 03/25/19 Range/Units 02:23 Urine Color Yellow (Yellow) Urine Clarity Clear (Clear) Urine pH 5.5 (5.0-8.0) pH Units Ur Specific [place] 1.015 (1.010-1.025) Urine Protein 30 H (Neg-Trace) mg/dL Urine Glucose (UA) Normal (Normal) mg/dL Consult Discharge Plan - Plan Instructions: Cellulitis (GEN), Diabetic Foot Care (DC), Diabetes Mellitus Type 2 in Adults (DC), Basic Carbohydrate Counting (DC), Acute Wound Care (DC), Diabetic Foot Ulcers (DC) Referrals: Bernardino Burkett MD [Primary Care Provider] - - Attending Attestation I examined this patient and my medical decision-making was reviewed with the Resident Physician Dr Park. I agree with the documented findings, disposition and treatment plan as described except to the extent set forth below. Ms Amaya is admitted with foot cellulitis, abscess and osteomyelitis requiring surgical intervention She had a very recent abnormal outpt stress test requiring intervention that may occur this admission awake, no fevers, chills. denies cp, pressure sob. no foot pain gen- alert, awake,appears stated age cv- reg rate and rhythm, normal s1,s2, lungs- ctabl, normal resp effort on room air skin- left foot dressed, c/d/i, neuro- AAOx3 Left Foot CEllulitis / Abscess/ Osteo s/p I&D, midtarsal amputation and skin flap -awaiting bone and wound cxs -podiatry high suspicion remnant infected bone, will require long course IV abx -id follwoing - cont vanc + zosyn CArds evaluated for pre op risk assessment Abnormal stress test outpt 03/05/19- appreciate cards eval, Recommend LHC prior to surgery,patient refusing. -LHC 03/25 with LOGISTICS COORDINATOR of RCA and LOGISTICS COORDINATOR of LAD. -cards rec medical management ASA, plavix, statin, BB, asya inhibitor + out patient viability study. Cardiology signed off Anemia, pre operatively noted- suspect 2/2 wound, cont to monitor in post operative setting, hemodynamically stable, hold pharm vte ppx as was oozing from surgical site previously, scd right LE in place ANABELLA suspect intrinsic related to vanc + zosyn, no indication this is pre or post renal in nature- resolved with ivf and renal dosing meds, received pre cath hydration, cont to monitor post LHC further diagnoses and plan as noted by resident <Annalisa Park - Last Filed: 03/25/19 15:40> Hospitalist Progress Note - Encounter Date of Encounter: 03/25/19 Time of Encounter: 10:00 - Subjective Interval History: Patient seen and examined at bedside today. She is anxious about left heart catheter later on today. She is pleased to hear that her renal function has improved. She admits to some intermittent mild pain in left foot. She denies nausea, vomiting, fever, chills, chest pain, shortness of breath, abdominal pain, diarrhea, constipation, dysuria, hematuria, calf pain, edema. - Exam Vitals: Temp Pulse Resp BP Pulse Ox 97.7 F 82 18 155/75 94 03/25/19 06:54 03/25/19 06:54 03/25/19 06:54 03/25/19 06:54 03/25/19 06:54 Exam: Gen.: Vitals noted. No acute distress. AAOx3, resting comfortably in chair, anxious. HEENT: PERRL/EOMI, oropharynx clear, Normocephalic, atraumatic, MMM, poor dentition Cardiac: RRR, no murmur, +S1/S2, No BLE edema, radial pulses 2+ and symmetrical Pulmonary: CTA bilaterally, no wheezes, rales or rhonchi, equal chest expansion, unlabored breathing Abdomen: soft, nontender, BS noted, no guarding, no palpable HSM Skin: warm and dry, dressing over left foot in place, no sign of bleeding or drainage. No erythema or edema of left lower extremity, no tenderness to palpation of left calf. MSK: No joint swelling noted, gait no assessed while in bed. Non tender calf or clubbing Neuro: A&Ox3, moves all extremities, no focal deficits. Psych: Appropriate mood and behavior, AOx3, pleasant but anxious - Assessment and Plan (1) Coronary artery disease Current Visit: Yes Status: Acute Assessment and Plan: Patient had NSTEMI 10/2018 and refused left heart catheter at that time. Stress test 03/05/2019-gated EF of 39%, left ventricle dilated, large size moderate to severe intensity, primarily fixed inferior, inferior lateral and inferior septal perfusion defect suggestive of a prior infarct. There is mild mandy-infarct ischemia involving the inferior and inferior lateral segments. Medium to 5 severe intensity acute perfusion defect involving the apical segments and apex suggestive of prior infarct. Findings suggest obstructive multivessel coronary artery disease. Renal function has improved to baseline Left heart catheter today- chronic total occlusion of RCA, chronic total occlusion of LAD Cardiology recommendations- medical management with aspirin, Plavix, atorvastatin, carvedilol, lisinopril as well as outpatient viability study and close follow-up with cardiology (2) Abnormal stress test Current Visit: Yes Status: Acute Assessment and Plan: See above for management (3) Osteomyelitis of left foot Current Visit: Yes Status: Acute Assessment and Plan: Presented from podiatry office with concern for osteomyelitis as well as abscess and cellulitis of left foot Status post transmetatarsal imitation of left foot in 2016 with surgery for nonhealing ulcer 10/2018 Left foot [id number] soft tissue swelling of stump of midfoot amputation, possible osteo-myelitis with cellulitis Left foot MRI-cellulitis of soft tissue stump with abscesses along distal aspect of soft tissue stump, largest measuring 2.51.31.2 cm, smaller 0.50.50.9 cm. Osteomyelitis of medial cuneiform, intermediate cuneiform and navicular bone with erosive changes and cortical destruction of the medial cuneiform bone. Postop day 4 of midtarsal amputation, incision and drainage, rotational skin flap- per op note, necrotic bone and soft tissue was noted cultures taken Blood cultures show no growth Surgical cultures pending Continue vancomycin, Zosyn (4) Cellulitis of left foot Current Visit: Yes Status: Acute Assessment and Plan: See above for management (5) Foot abscess, left Current Visit: Yes Status: Acute Assessment and Plan: See above for management (6) Uncontrolled diabetes mellitus Current Visit: Yes Status: Chronic Assessment and Plan: Hemoglobin A1c 13.3 Continue sliding scale insulin Levemir 10 units at bedtime Lispro 10 units subcutaneous 3 times a day with meals Continue to monitor (7) Acute kidney injury superimposed on CKD Current Visit: Yes Status: Resolved Assessment and Plan: Resolved Creatinine 1.03, BUN 19 Suspect this is secondary to antibiotics- vancomycin, Zosyn Continue to renally dose medications and avoid nephrotoxic agents (8) Anemia Current Visit: Yes Status: Acute Assessment and Plan: Hemoglobin continues to slowly decline Suspect component of dilution as given fluids overnight Hemoglobin 12.400 admission, currently 9.1 currently no active bleeding however we will continue to monitor closely DVT Prophylaxis: Scd - Time Spent with Patient Total time spent is greater than 50% in coordination of care (as documented) at patient's floor/unit and/or counseling patient: Internal Medicine: Result - Labs CBC & Chem 7: 03/25/19 02:04 03/25/19 02:04 Labs: Short CBC 03/25/19 Range/Units 02:04 WBC 5.2 (4.3-11.1) K/mcL Hgb 9.1 L (11.5-15.4) g/dL Hct 27.8 L (35.3-44.9) % Plt Count 160 (140-400) K/mcL Neutrophils # 3.0 (1.6-8.9) K/mcL BMP 03/25/19 02:04 Sodium 141 Potassium 3.8 Chloride 110 H Carbon Dioxide 22 L BUN 19 Creatinine 1.03 Glucose 159 H Calcium 8.3 L Urine 03/25/19 Range/Units 02:23 Urine Color Yellow (Yellow) Urine Clarity Clear (Clear) Urine pH 5.5 (5.0-8.0) pH Units Ur Specific [place] 1.015 (1.010-1.025) Urine Protein 30 H (Neg-Trace) mg/dL Urine Glucose (UA) Normal (Normal) mg/dL - VTE Documentation of Mechanical Device: Intermittent pneumatic compression device <Ninfa Fernandez M - Last Filed: 03/25/19 14:12> (2) Diabetes Qualifiers: Diabetes mellitus type: type 2 Diabetes mellitus custodial insulin use: with vermin exterminator use Diabetes mellitus complication status: with skin complications Diabetes mellitus complication detail: with foot ulcer Qualified Code(s): E11.621 - Type 2 diabetes mellitus with foot ulcer; L97.509 - Non-pressure chronic ulcer of other part of unspecified foot with unspecified severity; Z79.4 - bed bug exterminator (current) use of insulin (3) Osteomyelitis of left foot Qualifiers: Osteomyelitis type: unspecified type Qualified Code(s): M86.9 - Osteomyelitis, unspecified <Annalisa Park - Last Filed: 03/25/19 15:40> (1) Coronary artery disease Qualifiers: Coronary Disease-Associated Artery/Lesion type: [place] artery [place] vs. transplanted heart: iroquois heart Associated angina: without angina Qualified Code(s): I25.10 - Atherosclerotic heart disease of iroquois coronary artery without angina pectoris (3) Osteomyelitis of left foot Qualifiers: Osteomyelitis type: unspecified type Qualified Code(s): M86.9 - Osteomyelitis, unspecified (6) Uncontrolled diabetes mellitus Qualifiers: Diabetes mellitus type: type 2 Glycemic state: with hyperglycemia Qualified Code(s): E11.65 - Type 2 diabetes mellitus with hyperglycemia (8) Anemia Qualifiers: Anemia type: unspecified type Qualified Code(s): D64.9 - Anemia, unspecified
--- NOTE | 2019-03-25 11:05 | Event Note ---
Date of Encounter: 03/25/19 Time of Encounter: 09:00 - Cardiology Event Note Renal function has normalized. PLan for LHC today. Risks versus benefits of LHC explained to patient, who states understanding and agreeable to proceed. Discussed and reviewed with and Dr.Jennifer Delaney. Further recs pending LHC.
[2019-03-25] MEDS ORDERED: Heparin 1,000 UNITS/500 mL 500 ML ONE (11:20)
[2019-03-25] MEDS ORDERED: *HR* Heparin 10,000 UNIT/10 ML VIAL ONE (11:20)
[2019-03-25] MEDS ORDERED: 0.9 % Sodium Chloride 2,000 ML ONE (11:20)
[2019-03-25] MEDS ORDERED: Nitroglycerin 1,000 MCG/10 ML VIAL IV ONE (11:21)
[2019-03-25] MEDS ORDERED: ISOVUE-370 200 ML INFUS..BTL ONE (11:21)
--- NOTE | 2019-03-25 11:21 | Podiatry Progress Note ---
Date of Encounter: 03/25/19 Time of Encounter: 10:50 - Assessment and Plan (1) Foot abscess, left Current Visit: Yes Status: Acute Assessment: -Post op day #4 1. Rotational flap greater than 10.1 sq cm, left foot, 2. Midtarsal amputation (Chopart), left foot, and 3. Incision and drainage abscess below fascia, left foot by Dr. Lee on 03/21/2019 -Dressing dry and intact, no strike through noted -Skin warm and minimal swelling noted above dressing, non-pitting -No pain with calf squeeze -WBC 5.2 -Surgical biopsy culture and blood cultures final no growth -Anaerobic culture preliminary no growth -No Acid fast Bacilli -Path pending Plan: -Do not change dressing -ID onboard, any antibiotic recommendation appreciated -Will continue to monitor (2) Osteomyelitis of left foot Current Visit: Yes Status: Acute Assessment: -Post op day #4 1. Rotational flap greater than 10.1 sq cm, left foot, 2. Midtarsal amputation (Chopart), left foot, and 3. Incision and drainage abscess below fascia, left foot by Dr. Lee on 03/21/2019 -Dressing dry and intact, no strike through noted -Skin warm and minimal swelling noted above dressing, non-pitting -No pain with calf squeeze -WBC 5.2 -Surgical biopsy culture and blood cultures final no growth -Anaerobic culture preliminary no growth -No Acid fast Bacilli -Path pending Plan: -Do not change dressing -ID onboard, any antibiotic recommendation appreciated -Will continue to monitor Qualifiers: Osteomyelitis type: unspecified type Qualified Code(s): M86.9 - Osteomye litis, unspecified Subjective Principal diagnosis: s/p foot surgery Interval history: Post op day #4 1. Rotational flap greater than 10.1 sq cm, left foot, 2. Midtarsal amputation (Chopart), left foot, and 3. Incision and drainage abscess below fascia, left foot by Dr. Lee on 03/21/2019 Patient is alert and oriented x 3, sitting in bedside chair. She denies any chest pain, shortness of breath, or calf pain. Patient denies any fever, chills, n/v/d. Dressing dry and intact. Objective - Vital Signs Vital Signs: Vital Signs Temp Pulse Resp BP Pulse Ox 03/25/19 10:44 98.9 F 68 16 132/88 96 03/25/19 06:54 97.7 F 82 18 155/75 94 03/25/19 03:24 98.1 F 76 18 148/82 94 03/25/19 00:29 98.1 F 75 18 149/81 94 03/24/19 22:09 98 03/24/19 18:46 98.4 F 80 16 150/84 98 03/24/19 14:44 98.2 F 71 18 139/68 95 03/24/19 12:00 158/74 Intake and Output 03/24/19 03/25/19 03/25/19 23:59 07:59 15:59 Intake Total 830 / 1180 350 / 350 Output Total 0 / 0 1000 / 1450 450 / 1450 Balance 830 / 1180 -650 / -1100 -450 / -1100 Intake: IV Fluids 100 / 350 350 / 350 Zosyn 3.375 GM In 0.9 % Sodium 100 / 100 100 / 100 Chloride (Mini-Bag +) 100 ML @ 25 mls/hr IVPB Q8H [facility] Rx#: [id number] Vancocin 750 MG In 0.9 % Sodium 250 / 250 Chloride 250 ML @ 250 mls/hr IVPB Q12H [facility] Rx#:[id number] Oral 730 / 830 0 / 0 Output: Urine 0 / 0 1000 / 1450 450 / 1450 Other: Meal Dinner Percent of Meal Consumed 100% # Voids 1 1 1 Weight 100.59 kg Blood Glucose* 149 320 Patient Weight 03/25/19 23:59 Weight 100.59 kg - Exam Exam: Constitutional: Alert and oriented x 3, no acute distress noted. Vascular: Minimal edema above dressing, non-pitting, no pain with calf squeeze, skin warm to touch Neurological: Decreased protective sensation Dermatological: Dressing dry and intact, no strike through noted Musculoskeletal: Normal tone - Lab Result Diagrams: 03/25/19 02:04 03/25/19 02:04 Labs: Abnormal lab results RBC 3.10 M/mcL (3.82-4.97) L 03/25/19 02:04 Hgb 9.1 g/dL (11.5-15.4) L 03/25/19 02:04 Hct 27.8 % (35.3-44.9) L 03/25/19 02:04 Plt Count 138 K/mcL (140-400) L 03/22/19 06:02 ESR 63 mm/hr (0-15) H 03/20/19 06:54 Sodium 133 mEq/L (136-145) L 03/19/19 11:59 Potassium 3.4 mEq/L (3.5-5.1) L 03/23/19 02:50 Chloride 110 mEq/L (98-107) H 03/25/19 02:04 Carbon Dioxide 22 mEq/L (23-29) L 03/25/19 02:04 BUN 22 mg/dL (6-20) H 03/24/19 08:29 1.25 mg/dL (0.60-1.20) H 03/24/19 08:29 Est GFR ( Amer) 54 (> 60) L 03/24/19 08:29 Est GFR (Non-Af Amer) 55 (> 60) L 03/25/19 02:04 Glucose 159 mg/dL (70-105) H 03/25/19 02:04 POC Glucose 199 mg/dL (70-99) H 03/24/19 16:09 13.3 % (-5.6) H 03/19/19 11:59 Calcium 8.3 mg/dL (8.6-10.3) L 03/25/19 02:04 12 mg/L (Less than 10) H 03/20/19 06:54 30 mg/dL (Neg-Trace) H 03/25/19 02:23 Small (Negative) H 03/25/19 02:23 Ur Squamous Epith Cells Moderate per lpf (None-Few) H 03/25/19 02:23 Vancomycin Trough 15 mcg/mL (5-10) H 03/23/19 09:34 Microbiology, Last 48 Hours 03/21/19 16:39 Surgical Biopsy Culture - Final Surgery 03/19/19 12:28 Blood Culture - Final Peripheral Venipuncture No growth. Final report. 03/19/19 11:59 Blood Culture - Final Peripheral Venipuncture No growth. Final report. 03/21/19 16:39 Anaerobic Culture - Preliminary Surgery At this time, no anaerobic growth is present. The culture will be finalized after 5 days of incubation. 03/21/19 16:30 Acid Fast Stain - Final Surgery - VTE Documentation of Mechanical Device: Intermittent pneumatic compression device Consult Discharge Plan - Plan Instructions: Cellulitis (GEN), Diabetic Foot Care (DC), Diabetes Mellitus Type 2 in Adults (DC), Basic Carbohydrate Counting (DC), Acute Wound Care (DC), Diabetic Foot Ulcers (DC) Referrals: Bernardino Burkett MD [Primary Care Provider] -
[2019-03-25] MEDS ORDERED: *HR* FentaNYL (PF) 100 MCG/2 ML VIAL ONE (12:01)
[2019-03-25] MEDS ORDERED: *HR* Midazolam HCl 2 MG/2 ML VIAL ONE (12:01)
--- NOTE | 2019-03-25 12:04 | Pre-Sedation Evaluation ---
Pre-sedation evaluation - Pre-sedation checklist Date of procedure: 03/25/19 Procedure: heart cath Recent Vitals: Last Vital Signs Temp 98.9 F 03/25/19 10:44 Pulse 68 03/25/19 10:44 Resp 16 03/25/19 10:44 BP 132/88 03/25/19 10:44 Pulse Ox 96 03/25/19 10:44 H&P (including ROS) documented in medical record: Yes Previous reaction to sedatives/anesthetics: No Dietary Status: NPO after Midnight Airway Assessment: Patient can open mouth completely, TMJ function normal, Micrognathia (under-bite, receding chin) absent, Neck with adequate range of motion Dentition: poor dentition Possible difficult airway: No ASA Classification *see protocol: CLASS II-Mild systemic disease Plan of Care: Pt appropriate candidate for procedure/moderate/conscious sedation, Risks/benefits of procedure/sedation discussed w/ patient/family Cardiac Registry (Cardio Only) - Functional Capacity Functional Capacity: < 4 METS - Clincal Frailty Scale Clinical Frailty Scale: Vulnerable
[2019-03-25] MEDS ORDERED: Nitroglycerin 0.4 MG TAB.SUBL SL PRN (12:52)
--- NOTE | 2019-03-25 13:12 | Event Note ---
Date of Encounter: 03/25/19 Time of Encounter: 13:10 - Cardiology Event Note Discussed and reviewed with Dr.Jennifer Delaney, [facility] with REWORK OPERATOR of RCA and REWORK OPERATOR of LAD. Recommend medical management at this time. Continue ASA, plavix, statin, BB, asya inhibitor. Recommend outpatient viability study. Cardiology will sign off. Will arrange close outpatient follow up.
--- NOTE | 2019-03-25 13:37 | Invasive Diagnostic Lab Proc ---
Name: Margi Amaya Date of Study: 03/25/2019 Date: 1960 Ht: 63.0in Medical Record#: [id number] Age: 59 Wt: 222.67lb Gender: Female BSA: 2.02 Order #: [id number] BMI: 39.45 Physicians Procedure Physician: Annalisa Delaney MD, [facility] Referring MD: Referring MD: Staff Name Position Time In ChristinaamenaDot smith RN Monitor 11:46 AM Jerry Vegas RN Traveling Secretary 11:47 AM Cindy Parnell RT (R) Scrub 11:49 AM Indications Indication Abnormal Test - Stress Procedures Performed Procedure L HRT ARTERY/VENTRICLE ANGIO Pre-Procedure Checklist Informed consent is complete signed and on chart. H&P is on chart. ID band is on and ID verified with patient. Patient NPO for procedure The procedure was described for the patient and questions were answered. ECG is on chart. Plan of Care Patient will tolerate the procedure without complications. Adequate level of comfort will be maintained. Hemodynamics will remain stable Patient will recover from procedure without complications. Respiratory function will be maintained. Cardiac rhythm will remain stable. Patient temperature will be maintained. Patient and/or family have verbalized understanding of the procedure. Patient Education Chief Complaint/Reason for Test: Cardiac Cath Developmental Category: Adult (18-64 years) Developmentally Appropriate for Age: Yes Learning Barriers: None Education Needs: Procedure Education Method: Verbal Information Taught: Cardiac Cath Educational Evaluation: Able to repeat information Intravenous Access Time IV Size Location DC'd Fluid/Drip Rate Units RN PICC Line Rt Cephalic 0.9NaCl ml/hr Allergies No Known Allergies Vital Signs Time BP (mmHg) HR (bpm) O2 Sat. RR (bpm) LOC / % 5 = Fully awake and oriented or at pre-proc level 12:07 PM / % 5 = Fully awake and oriented or at pre-proc level 12:07 PM / % 4 = Oriented but drowsy 12:03 PM 185 / 107 93 97 % 12:07 PM 168 / 98 88 90 % 12:12 PM 169 / 98 86 99 % 10 12:17 PM 166 / 93 76 97 % 26 12:22 PM 174 / 96 90 98 % 26 12:27 PM 176 / 102 93 97 % 21 Procedural Medications Time Medication Dose Units Method Given By 12:06 PM Oxygen 2 L/min nasal cannula Jerry Vegas RN 12:06 PM Versed 2 mg Intravenous Jerry Vegas RN 12:06 PM Fentanyl 50 mcg Intravenous Jerry Vegas RN 12:15 PM Lidocaine 2% 20 ml Subcutaneous Annalisa Delaney MD, [facility] ASA Classification: CLASS II- Mild systemic disease (i.e. well-controlled diabetes, hypertension, asthma, cigarette smoking) Loni Score Preprocedure Postprocedure Activity 2- Moves 4 extremities sustained head lift Activity 2- Moves 4 extremities sustained head lift Circulation 2- SBP +/= 20 points of pre-anesthetic level Circulation 2- SBP +/= 20 points of pre-anesthetic level Consciousness 2- Awake and alert oriented x 3 Consciousness 2- Awake and alert oriented x 3 O2 Saturation 2- Able to maintain O2 satruation of 92% on room air O2 Saturation 2- Able to maintain O2 satruation of 92% on room air Respiratory 2- Able to deep breathe and cough well Respiratory 2- Able to deep breathe and cough well Total Score 10 Total Score 10 Contrast Agent: Isovue Diagnostic Contrast: 52 ml Total Contrast: 52 ml Fluoro Dose: 19 mGy Procedure Log Time Note Enter By 11:47 AM Dot Julien RN Position: Monitor Time in: 11:46 [place] 11:47 AM Jerry Vegas RN Position: Traveling Secretary Time in: 11:47 [place] 11:47 AM Patient charges- Angio tray pack, Navilyst 3mm J, Pulse Oximetry and ACIST tubing and transducer [place] 11:49 AM Pt arrived to laboratory administrative director 2 at 11:49 [facility] 11:49 AM Cindy Parnell RT (R) Position: Scrub Time in: 11:49 [facility] 11:57 AM Physician arrived 11:57 [facility] 11:57 AM Kiran and cammie completed [facility] 11:57 AM Sign in performed according to hospital policy. Informed consent was obtained. tsoummers 11:57 AM Procedure start 11:57 tsmmers 11:57 AM CathStat 12:01 PM Vitals capture started with the following parameters, Patient=Adult, Interval=5 min, Initial Bjvfbjer=847 mmHg, Deflation Rate=5 mmHg, Cuff placed on Left Arm 12:03 PM HR=93 bpm, WSGH=617/107 mmhg, SpO2=97.0 %, EtCO2=29 mmHg 12:06 PM Recorded ECG: HR=92 Condition=Condition 1 12:06 PM ASA Class CLASS II- Mild systemic disease (i.e. well-controlled diabetes, hypertension, asthma, cigarette smoking) [facility] 12:06 PM Hair removed from procedure site in procedure lab using clippers. Bilateral groin prepped with Chloraprep by Dot Julien RN, then patient was draped. Skin intact. [facility] 12:06 PM Time: 12:06 Oxygen on at 2 L/min per nasal cannula by Jerry Vegas RN [facility] 12:06 PM Time: 12:06 Versed 2 mg Intravenous Given by Jerry Vegas RN [facility] 12:06 PM Time: 12:06 Fentanyl 50 mcg Intravenous Given by Jerry Vegas RN [facility] 12:07 PM Time: 12:06 Patient comfortable and pain free: Yes [facility] 12:07 PM Time: 12:07LOC: 5 = Fully awake and oriented or at pre-proc level [facility] 12:07 PM HR=88 bpm, DUWA=613/98 mmhg, SpO2=90.0 %, EtCO2=30 mmHg 12:07 PM Pressure channel 1 zeroed. 12:12 PM HR=86 bpm, VIJF=298/98 mmhg, SpO2=99.0 %, Resp=10 B/min, EtCO2=38 mmHg 12:13 PM Time out was performed according to hospital policy. Conscious sedation and anesthesia was achieved (see medication log with in this report above) [facility] 12:15 PM Time: 12:15 20 ml Lidocaine 2% to right groin Subcutaneous Given by Annalisa Delaney MD, [facility] 12:15 PM Access obtained by percutaneous puncture. 5Fr 10cm Terumo [place] sheath placed in right Femoral artery. [id number] [facility] 12:16 PM 0.035 145cm Navilyst 3mmJ wire [id number] [facility] 12:16 PM 5Fr FL 4 catheter inserted over the wire [facility] 12:16 PM wire removed [facility] 12:17 PM Recorded Pressure: Ao, HR=90, Condition=Condition 1 (Aorta) Ao 158/104/129 12:17 PM LCA angiography performed in multiple views. [facility] 12:17 PM HR=76 bpm, XBXW=262/93 mmhg, SpO2=97.0 %, Resp=26 B/min 12:18 PM Catheter removed [facility] 12:18 PM 5Fr FR 4 catheter inserted over the wire [facility] 12:19 PM RCA angiography performed in multiple views. [facility] 12:19 PM Recorded Pressure: Ao, HR=90, Condition=Condition 1 (Aorta) Ao 102/55/82 12:20 PM Catheter removed [facility] 12:20 PM 5Fr Pigtail catheter inserted over the wire [facility] 12: Pressure channel 1 zeroed. 12:21 PM Catheter crossed the aortic valve and was selectively placed in the left ventricle. Pressures recorded on pullback for left heart catheterization. [facility] 12:21 Bolus angiogram of left Ventricle complete: 8 ml/sec for a total of 24 mls [facility] 12:21 PM Recorded Pressure: LV, HR=92, Condition=Condition 1 (Left Ventricle) LV 172/-1/22 12:21 PM Recorded Pressure: LV, Ao, HR=90, Condition=Condition 1 (Left Ventricle) LV 138/45/53, (Aorta) Ao 145/98/121 12:22 PM Time: 12:07LOC: 4 = Oriented but drowsy [facility] 12:22 PM Time: 12:07 Patient comfortable and pain free: Yes [facility] 12:22 PM HR=90 bpm, HDIL=728/96 mmhg, SpO2=98.0 %, Resp=26 B/min, EtCO2=34 mmHg 12:22 PM Catheter removed [facility] 12:23 PM Bolus angiogram of right Femoral complete: 4 ml/sec for a total of 7 mls [facility] 12:23 PM Procedure completed at 12:23 03/25/2019 [facility] 12:24 PM Sign out completed: Radiation Dose 131.88 mGy, 19.2 Gy/cm2 Fluoro Time: 1 Isovue 370 - 200ml contrast 52 ml given by Annalisa Delaney MD, [facility]. Complications: None. The patient was discharged out of the rn labor delivery in stable condition. Sedation minutes 18. Cardiac Rehab Consult needed: Yes. Confirmed administered medications: Yes [facility] 12:24 PM Isovue 370 - 200ml,1 Bottle(s) used. tsoummers 12:24 PM Arterial sheath pulled, Mynx closure device used and was Successful [id number] S/N. tsoummers 12:24 PM Estimated Blood Loss: minimal tsoummers 12:24 PM Post ECG NSR tsoummers 12:25 PM Post Blood Pressure 174/96 tsoummers 12:25 PM Information taught Cardiac Cath and Mynx tsoummers 12:25 PM Education needs Procedure, Plan of Care, and Responsibilities of Patient in Care tsoummers 12:25 PM Learning barriers :None tsoummers 12:25 PM Education Methods Verbal tsoummers 12:25 PM Education evaluation Able to repeat information tsmmers 12:25 PM Plavix, Effient or Brilinta given No tsoummers 12:26 PM Family placed in consult room. tsoummers 12:27 PM HR=93 bpm, LJSJ=471/102 mmhg, SpO2=97.0 %, Resp=21 B/min, EtCO2=33 mmHg 12:27 PM Coronary Dominance: right tsoummers 12:28 PM Did you address MARY ALICE flow and Dominance? YesCoronary Dominance: right tsoummers 12:28 PM Site status No bleeding/hematoma - Rt Groin as reported by Cindy Parnell RT (R) at 12:28 tsoummers 12:28 PM Opsite applied tsoummers 12:29 PM Vitals capture stopped. 12:32 PM Patient out of room: 12:32 tsoummers 12:41 PM Report given to cordell PORTILLO Pt taken to [facility] Room #28. 12:37 tsoummers 01:20 PM Lesion found in Proximal RCA. Pre Stenosis: 100 Pre MARY ALICE Flow: 0: No Flow/No perfusion tsoummers 01:20 PM Lesion found in Proximal LAD. Pre Stenosis: 100 Pre MARY ALICE Flow: tsoummers 01:21 PM Lesion found in 1st Marginal. Pre Stenosis: 95 Pre MARY ALICE Flow: tsoummers 01:21 PM Lesion found in 2nd Marginal. Pre Stenosis: 99 Pre MARY ALICE Flow: tsoummers 01:21 PM Lesion found in Ramus. Pre Stenosis: 60 Pre MARY ALICE Flow: tsoummers 01:21 PM Proximal Left Anterior Descending Coronary Artery with 100% stenosis. If graft is supplying this territory, 0 % stenosis. tsoummers 01:21 PM Circumflex, Obtuse Marginal, Left Posterior Descending, and Left Posterolateral Coronary Arteries with 99 % stenosis. If graft is supplying this area, 0 % stenosis tsoummers 01:21 PM Right Coronary, Right Posterior Descending Arteries with Right Posterolateral and Acute Marginal branches with 100 % stenosis. If graft is supplying this area, 0 % stenosis tsoummers 01:22 PM Ramus with 60% stenosis. If graft is supplying this area, 0 % stenosis tsoummers Complications Complication None Hemodynamics Pressures Site Systolic/A Wave Diastolic/V Wave Mean AO 158 104 129 AO 102 55 82 LV 172 -1 22 LV 138 45 53 AO 145 98 121 Post Procedure Information Blood Pressure: 174/96 mmHg Rhythm: NSR Post procedural instructions were given Closure Device Time Device Success/Fail 03/25/2019 12:25:00 PM MynxGrip Successful Site Checks Time Location Status Staff Sheath In? Note 12:28 PM Rt Groin No bleeding/hematoma Cindy Parnell RT (R) Pulses Time Site Pre-Procedure Post-Procedure Note Bilateral DP & PT 2+ Bilateral radial 2+ Updated by Dot Julien RN on 03/25/2019 1:29:36 PM electronically signed on 03/25/2019 1:30:02 PM with status of Final
[2019-03-25] MEDS: Insulin DETEMIR 100 UNIT/ML X5UNITS SQ SCH (21:28)
[2019-03-26 02:42] LABS: Basophils % 0.6 %; Eosinophils # 0.4 K/mcL (0.0-0.6); Eosinophils % 7.2 %; Hematocrit 27.4 % (35.3-44.9); Hemoglobin 8.9 g/dL (11.5-15.4); Immature Granulocytes % 0.6 % (0-4); Lymphocytes # 1.3 K/mcL (0.6-4.6); Lymphocytes % 23.7 %; Mean Corpuscular HGB Conc 32.5 g/dL (31.6-35.5); Mean Corpuscular Hemoglobin 29.2 pg (28.0-33.3); Mean Corpuscular Volume 89.8 fL (83.0-100.0); Mean Platelet Volume 10.3 fL (9.4-12.4); Monocytes # 0.5 K/mcL (0.0-1.3); Monocytes % 9.8 %; Neutrophils # 3.1 K/mcL (1.6-8.9); Platelet Count 168 K/mcL (140-400); Red Blood Count 3.05 M/mcL (3.82-4.97); Red Cell Distribution Width 12.8 % (11.5-14.5); Segmented Neutrophils % 58.1 %
[2019-03-26 03:01] LABS: Calcium 8.3 mg/dL (8.6-10.3); Potassium 3.7 mEq/L (3.5-5.1)
[2019-03-26] MEDS: Piperacillin/Tazobactam 3.375 GM in 0.9 % Sodium Chloride Mini Bag 100 ML IVPB SCH ×3 (06:24→22:08)
--- NOTE | 2019-03-26 09:00 | Internal Med Progress Note ---
<Bartolome Moreau - Last Filed: 03/26/19 17:51> Hospitalist Progress Note - Encounter Date of Encounter: 03/26/19 Time of Encounter: 09:55 - Subjective Interval History: Patient was seen and examined at bedside this morning. She states that overall she continues to well. Denies any symptoms of fevers, chills, chest pain, sh ortness of breath. She states she has not noticed any oozing from her wound. No erythema, redness, drainage noticed. - Exam Vitals: Temp Pulse Resp BP Pulse Ox 98.4 F 83 16 128/76 96 03/26/19 06:30 03/26/19 06:30 03/26/19 06:30 03/26/19 06:30 03/26/19 06:30 Exam: Gen.: Vitals noted. No acute distress. AAOx3, resting comfortably in chair. HEENT: PERRL/EOMI, oropharynx clear, Normocephalic, atraumatic, MMM, poor dentition Cardiac: RRR, no murmur, +S1/S2, No BLE edema, radial pulses 2+ and symmetrical Pulmonary: CTA bilaterally, no wheezes, rales or rhonchi, equal chest expansion, unlabored breathing Abdomen: soft, nontender, BS noted, no guarding, no palpable HSM Skin: warm and dry, dressing over left foot in place, no sign of bleeding or drainage. No erythema or edema of left lower extremity, no tenderness to palpation of left calf. MSK: No joint swelling noted, gait no assessed while in bed. Non tender calf or clubbing Neuro: A&Ox3, moves all extremities, no focal deficits. Psych: Appropriate mood and behavior, AOx3, pleasant - Assessment and Plan (1) Osteomyelitis of left foot Current Visit: Yes Status: Acute Assessment and Plan: - Presented from podiatry office with concern for osteomyelitis as well as abscess and cellulitis of left foot. - Status post transmetatarsal amputation of the left foot in 2016 with surgery for nonhealing ulcer 10/2018 - Known poorly controlled diabetic - Non septic, no leukocytosis - ESR 63 - CRP 12 - Blood cultures remain pending - Per operative note, necrotic bone and soft tissue was noted, intraoperative cultures taken - Pathology status post I&D shows ulcer with suppurative inflammation - Previous cultures of Staphylococcus aureus, methicillin sensitive, Proteus penneri, enterobacter cloacae - Left foot [id number] soft tissue swelling of stump of midfoot amputation, possible osteo-myelitis with cellulitis - Left foot MRI-cellulitis of soft tissue stump with abscesses along distal aspect of soft tissue stump, largest measuring 2.51.31.2 cm, smaller 0.50.50.9 cm. Osteomyelitis of medial cuneiform, intermediate cuneiform and navicular bone with erosive changes and cortical destruction of the medial cuneiform bone. Postoperative day #5 from midtarsal amputation, incision and drainage, rotational flap of left foot with podiatry Plan - Continue antibiotic coverage-vancomycin, Zosyn, day #7. Will likely need 6 weeks of IV antibiotics - Surgical biopsy cultures were negative - Blood cultures, wound cultures also negative - Per infectious disease note and after discussion, given high suspicion of osteomyelitis, will continue to treat with broad-spectrum antibiotics first total 6 weeks. Plan for discharge of vancomycin, cefepime, Flagyl - Podiatry following - Infectious disease following for long-term antibiotics (2) Cellulitis of left foot Current Visit: Yes Status: Acute Assessment and Plan: As above for osteomyelitis (3) Acute kidney injury superimposed on CKD Current Visit: Yes Status: Acute Assessment and Plan: - Mildly elevated today and 18.46 - Baseline creatinine of around 1 - Etiology is likely secondary to contrast use left heart catheter in combination with vancomycin and Zosyn - Was given preoperative fluids - Encourage oral hydration - We will continue monitor and dose adjust medications as necessary (4) Diabetes Current Visit: Yes Status: Acute Assessment and Plan: Poorly controlled, hemoglobin A1c of 13.3% on admission Blood sugars currently controlled in the 100s to 200s Levemir 10 units HS (consider increase to 20 units of blood sugar should rise as she is now eating a full diet) ADA diet cont home regimen Lispro 10 U TID as well as sliding scale moderate (5) Foot abscess, left Current Visit: Yes Status: Acute Assessment and Plan: As above, status post I&D (6) Abnormal stress test Current Visit: Yes Status: Acute Assessment and Plan: - Patient had NSTEMI 10/2018 and refused left heart catheter at that time. - Stress test 03/05/2019-gated EF of 39%, left ventricle dilated, large size moderate to severe intensity, primarily fixed inferior, inferior lateral and inferior septal perfusion defect suggestive of a prior infarct. There is mild mandy-infarct ischemia involving the inferior and inferior lateral segments. Medium to 5 severe intensity acute perfusion defect involving the apical segments and apex suggestive of prior infarct. Findings suggest obstructive multivessel coronary artery disease. - Cardiology following Plan - Status post left heart catheterization on 03/25/19 which showed chronic total occlusion of RCA, LAD. Cardiology recommends medical management of aspirin, Plavix, statin, beta taryn, ROWENA inhibitor. Patient should follow-up as outpatient for viability study in [place]. Patient acknowledges understanding. (7) Coronary artery disease Current Visit: Yes Status: Acute Assessment and Plan: As above Follow-up as outpatient (8) Anemia Current Visit: Yes Status: Chronic Assessment and Plan: - Stable - Hemoglobin of 9.7 - Baseline appears to be 10-12 - We will continue monitor and transfuse as necessary - Heparin has been stopped due to oozing from her foot DVT Prophylaxis: SCD on right only - Time Spent with Patient Total time spent is greater than 50% in coordination of care (as documented) at patient's floor/unit and/or counseling patient: Internal Medicine: Result - Labs CBC & Chem 7: 03/26/19 15:11 03/26/19 15:11 Labs: Short CBC 03/26/19 Range/Units 01:51 WBC 5.3 (4.3-11.1) K/mcL Hgb 8.9 L (11.5-15.4) g/dL Hct 27.4 L (35.3-44.9) % Plt Count 168 (140-400) K/mcL Neutrophils # 3.1 (1.6-8.9) K/mcL BMP 03/26/19 01:51 Sodium 139 Potassium 3.7 Chloride 110 H Carbon Dioxide 23 BUN 18 Creatinine 1.46 H Glucose 171 H Calcium 8.3 L - VTE Documentation of Mechanical Device: Intermittent pneumatic compression device Consult Discharge Plan - Plan Instructions: Cellulitis (GEN), Diabetic Foot Care (DC), Diabetes Mellitus Type 2 in Adults (DC), Basic Carbohydrate Counting (DC), Acute Wound Care (DC), Diabetic Foot Ulcers (DC) Referrals: Bernardino Burkett MD [Primary Care Provider] - Celeste Kim METAL BONDING ASSEMBLER [Advanced Practice Nurse] - 04/10/19 2:05 pm <Tad De Leon - Last Filed: 03/26/19 21:29> Hospitalist Progress Note - Encounter Date of Encounter: 03/26/19 - Exam Vitals: Temp Pulse Resp BP Pulse Ox 97.9 F 77 16 129/67 95 03/26/19 18:35 03/26/19 18:35 03/26/19 18:35 03/26/19 18:35 03/26/19 18:35 - Assessment and Plan (1) Cellulitis of left foot Current Visit: Yes Status: Acute (2) Diabetes Current Visit: Yes Status: Acute (3) Osteomyelitis of left foot Current Visit: Yes Status: Acute (4) Foot abscess, left Current Visit: Yes Status: Acute (5) Abnormal stress test Current Visit: Yes Status: Acute (6) Coronary artery disease Current Visit: Yes Status: Acute (7) Acute kidney injury superimposed on CKD Current Visit: Yes Status: Acute (8) Anemia Current Visit: Yes Status: Chronic - Time Spent with Patient Total time spent is greater than 50% in coordination of care (as documented) at patient's floor/unit and/or counseling patient: Internal Medicine: Result - Labs CBC & Chem 7: 03/26/19 15:11 03/26/19 15:11 Labs: Short CBC 03/26/19 03/26/19 Range/Units 01:51 15:11 WBC 5.3 6.8 (4.3-11.1) K/mcL Hgb 8.9 L 9.7 L (11.5-15.4) g/dL Hct 27.4 L 29.5 L (35.3-44.9) % Plt Count 168 180 (140-400) K/mcL Neutrophils # 3.1 4.6 (1.6-8.9) K/mcL BMP 03/26/19 03/26/19 01:51 15:11 Sodium 139 141 Potassium 3.7 3.7 Chloride 110 H 108 H Carbon Dioxide 23 23 BUN 18 17 Creatinine 1.46 H 1.26 H Glucose 171 H 144 H Calcium 8.3 L 9.1 Cardiac Enzymes 03/26/19 Range/Units 15:11 Troponin I < 0.03 (< 0.04) ng/mL - Impressions Impressions Chest X-Ray 03/26/19 13:39 IMPRESSION: 1. Bibasilar atelectasis. 2. Right upper extremity PICC placement with tip in the distal superior vena cava. D/ / Edson Hanson MD / Edson Hanson MD Interpreting Provider: Edson Hanson MD - Attending Attestation I examined this patient and my medical decision-making was reviewed with the Resident Physician. I agree with the documented findings, disposition and treatment plan as described except to the extent set forth below. <Bartolome Moreau - Last Filed: 03/26/19 17:51> (1) Osteomyelitis of left foot Qualifiers: Osteomyelitis type: unspecified type Qualified Code(s): M86.9 - Osteomyelitis, unspecified (4) Diabetes Qualifiers: Diabetes mellitus type: type 2 Diabetes mellitus longterm insulin use: with longterm use Diabetes mellitus complication status: with skin complications Diabetes mellitus complication detail: with foot ulcer Qualified Code(s): E11.621 - Type 2 diabetes mellitus with foot ulcer; L97.509 - Non-pressure chron ic ulcer of other part of unspecified foot with unspecified severity; Z79.4 - correction (current) use of insulin (7) Coronary artery disease Qualifiers: Coronary Disease-Associated Artery/Lesion type: [place] artery [place] vs. transplanted heart: [place] heart Associated angina: without angina Qualified Code(s): I25.10 - Atherosclerotic heart disease of [place] coronary artery without angina pectoris (8) Anemia Qualifiers: Anemia type: unspecified type Qualified Code(s): D64.9 - Anemia, unspecified <Tad De Leon - Last Filed: 03/26/19 21:29> (2) Diabetes Qualifiers: Diabetes mellitus type: type 2 Diabetes mellitus longterm insulin use: with ad terminal makeup operator use Diabetes mellitus complication status: with skin complications Diabetes mellitus complication detail: with foot ulcer Qualified Code(s): E11.621 - Type 2 diabetes mellitus with foot ulcer; L97.509 - Non-pressure chron ic ulcer of other part of unspecified foot with unspecified severity; Z79.4 - correction (current) use of insulin (3) Osteomyelitis of left foot Qualifiers: Osteomyelitis type: unspecified type Qualified Code(s): M86.9 - Osteomyelitis, unspecified (6) Coronary artery disease Qualifiers: Coronary Disease-Associated Artery/Lesion type: [place] artery [place] vs. transplanted heart: [place] heart Associated angina: without angina Qualified Code(s): I25.10 - Atherosclerotic heart disease of [place] coronary artery without angina pectoris (8) Anemia Qualifiers: Anemia type: unspecified type Qualified Code(s): D64.9 - Anemia, unspecified
[2019-03-26] MEDS: Aspirin Enteric Coated 81 MG Tablet PO SCH (09:06)
[2019-03-26] MEDS: Insulin LISPRO 300 UNITS/3 ML VIAL SQ SCH ×7 (09:08→21:56)
--- NOTE | 2019-03-26 09:34 | Infectious Disease Progress No ---
ID Progress Note Date of Encounter: 03/26/19 Time of Encounter: 09:32 - Subjective Subjective: Patient seen and examined. No acute events noted overnight. Postop day #5 status post I&D of the left foot. Cultures are negative. Bone pathology not sent. Patient states overall she feels okay. Denies fevers, chills, rigors. Denies chest pain, shortness of breath, or cough. Denies nausea, vomiting, diarrhea, or constipation. Denies abdominal pain or urinary complaints. States her appetite is good. Last bowel movement was yesterday. Denies oral thrush or skin lesions. Reports minimal pain at the surgical site. Reports right groin pain at [facility] site. - Objective CBC & Chem 7: 03/27/19 02:10 03/27/19 02:10 - Exam Vitals: Temp Pulse Resp BP Pulse Ox 98.4 F 83 16 128/76 96 03/26/19 06:30 03/26/19 06:30 03/26/19 06:30 03/26/19 06:30 03/26/19 06:30 Exam: Head: Atraumatic, normal inspection, normocephalic. Eye: EOMI, PERRLA, no scleral icterus noted. ENT: Mucous membranes moist. No odontogenic infection noted. Neck: Normal inspection, no meningismus. Respiratory: Clear to auscultation. No rales, respiratory distress, rhonchi, or wheezes noted. Cardiovascular: Regular rate and rhythm, S1 and S2 audible. No murmurs, rubs, or gallops. GI: Soft, nondistended, normal bowel sounds. Extremities:No joint swelling, pedal edema, or tenderness noted. Left foot dressing clean, dry, and intact. Right groin site soft without hematoma, erythema, or warmth. Back: Normal inspection. No vertebral tenderness noted. Neurological: Alert, oriented 3, no focal deficits. Psychiatric: normal affect, normal mood. Skin: Dry, intact, warm. Normal color. No rashes. - Assessment and Plan (1) Osteomyelitis of left foot Current Visit: Yes Status: Acute Location: Medial cuneiform, intermediate cuneiform, and navicular bone left foot. Causative organism: Unclear. Intra-Op cultures are negative, keep in mind the patient has been on antibiotics for approximately 48 hours prior to surgery No bone pathology sent. Likely secondary to chronic nonhealing surgical site. ESR elevated at 63, CRP 12. 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 Qualifiers: Osteomyelitis type: unspecified type Qualified Code(s): M86.9 - Osteomyelitis, unspecified SNOMED Code(s): 2770055777575002 (2) Foot abscess, left Current Visit: Yes Status: Acute Location: Left foot. Causative organism: Unclear. Likely secondary to chronic nonhealing surgical site. MRI of the left foot shows cellulitis of soft tissue stump with abscesses along the distal aspect of the soft tissue stump, the largest measuring 2.5 x 1.3 x 1.2 cm and the smaller abscess measuring 5 x 5 x 9 mm. Dietary consult and following. Status post I&D 03/21/2019 Currently on vancomycin and Zosyn. SNOMED Code(s): 85427674532103045 (3) Cellulitis of left foot Current Visit: Yes Status: Acute Location: Left foot. Causative organism: Unclear. Likely secondary to chronic nonhealing surgical site. Currently on vancomycin and Zosyn. SNOMED Code(s): 156608283 (4) Diabetes Current Visit: Yes Status: Acute Uncontrolled. Hemoglobin A1c 13.3%. Recommend aggressive glucose monitoring and control to promote wound healing and prevent reinfection. Qualifiers: Diabetes mellitus type: type 2 Diabetes mellitus head bander and liner operator insulin use: with head bander and liner operator use Diabetes mellitus complication status: with skin complications Diabetes mellitus complication detail: with foot ulcer Qualified Code(s): E11.621 - Type 2 diabetes mellitus with foot ulcer; L97.509 - Non-pressure chronic ulcer of other part of unspecified foot with unspecified severity; Z79.4 - penitentiary (current) use of insulin SNOMED Code(s): 81746627 (5) Coronary artery disease Current Visit: Yes Status: Acute Cardiology consulted. Status post [facility] 03/25/19 that showed severe triple vessel disease. Qualifiers: Coronary Disease-Associated Artery/Lesion type: [place] artery [place] vs. transplanted heart: [place] heart Associated angina: without angina Qualified Code(s): I25.10 - Atherosclerotic heart disease of [place] coronary artery without angina pectoris SNOMED Code(s): 22675357 (6) Hypertension Current Visit: No Status: Chronic Qualifiers: Hypertension type: essential hypertension Qualified Code(s): I10 - Essential (primary) hypertension SNOMED Code(s): 90071197 (7) Acute kidney injury superimposed on CKD Current Visit: Yes Status: Acute Creatinine back up to 1.46 this morning. Likely secondary to contrast from [facility]. Continue to trend. Dose-adjust medications. Avoid nephrotoxins as able. SNOMED Code(s): 81074425 - Recommendations Recommendations: Wound care and activity restrictions per the podiatry team. Diabetes management per the primary team. Continue vancomycin IV. Pharmacy to dose. Goal trough approximately 15. Discontinue Zosyn. Start cefepime 2 grams IV Q12H. Start flagyl 500mg PO TID. Duration of treatment depends on the clinical picture. Given that the patient i s at high risk for limb loss, we will likely need to be aggressive with antibiotics. Unfortunately, we do not have positive cultures at this point so we will likely need to treat with broad-spectrum antibiotics for 4-6 weeks. Monitor renal function for drug toxicity and dose adjust antibiotics. career services officer to assist with discharge planning. Consult VAT for midline exchange to PICC. Will need weekly CBC, BUN/Cr, ESR, CRP, Vanc trough. Will need weekly PICC care per protocol. Follow up with ID 04/10/19 at 1405. - VTE Documentation of Mechanical Device: Intermittent pneumatic compression device Consult Discharge Plan - Plan Instructions: Cellulitis (GEN), Diabetic Foot Care (DC), Diabetes Mellitus Type 2 in Adults (DC), Basic Carbohydrate Counting (DC), Acute Wound Care (DC), Diabe tic Foot Ulcers (DC) Referrals: Bernardino Burkett MD [Primary Care Provider] - Celeste Kim CNP [Advanced Practice Nurse] - 04/10/19 2:05 pm - Attending Attestation I have personally performed a face to face evaluation on this patient. I have reviewed and agree with the care plan. History and Exam by me shows: Assessment and plan: 1.Osteomyelitis of the left foot causative organism not clear Intra-Op cultures no growth to date 2.Left foot abscess 2 status post I&D 03/21/2019 cultures negative 3.Cellulitis of the left foot 4.Diabetes mellitus type 2 5.Coronary artery disease 6.Hypertension Recommendations: Continue vancomycin IV. Pharmacy to dose. Goal trough approximately 15. Continue Zosyn 3.375 g IV every 8 hours. Duration of treatment depends on the clinical picture. Given that the patient is at high risk for limb loss, we will likely need to be aggressive with antibiotics. Unfortunately, we do not have positive cultures at this point so we will likely need to treat with broad-spectrum antibiotics for 4-6 weeks. We will discuss with podiatry. Monitor renal function for drug toxicity and dose adjust antibiotics.
[2019-03-26] MEDS ORDERED: Lidocaine -MPF 1% 5 ML AMPUL INFILT ONE (11:25)
--- NOTE | 2019-03-26 14:43 | Podiatry Progress Note ---
Date of Encounter: 03/26/19 Time of Encounter: 14:00 - Assessment and Plan (1) Foot abscess, left Current Visit: Yes Status: Acute Assessment: -Post op day #5 1. Rotational flap greater than 10.1 sq cm, left foot, 2. Midtarsal amputation (Chopart), left foot, and 3. Incision and drainage abscess below fascia, left foot by Dr. Lee on 03/21/2019 -Healing surgical wound without complications noted, sutures intact and edges coapting -Skin warm -No pain with calf squeeze -WBC 5.3 -Surgical biopsy culture and blood cultures final no growth -Anaerobic culture preliminary no growth -No Acid fast Bacilli -Path shows ulcer with suppurative inflammation Plan: -Dressing removed -Flushed site with sterile saline and pat dry -Painted surgical wound with betadine and covered with Xeroform, 4x4 dry gauze, ABD pad, and Kerlix. Secured with ROWENA wrap. -All cultures show no growth but due to concern for how the bone looked recommend IV antibiotics - ID following and any recommendations appreciated -Will continue to monitor (2) Osteomyelitis of left foot Current Visit: Yes Status: Acute Assessment: -Post op day #5 1. Rotational flap greater than 10.1 sq cm, left foot, 2. M idtarsal amputation (Chopart), left foot, and 3. Incision and drainage abscess below fascia, left foot by Dr. Lee on 03/21/2019 -Healing surgical wound without complications noted, sutures intact and edges coapting -Skin warm -No pain with calf squeeze -WBC 5.3 -Surgical biopsy culture and blood cultures final no growth -Anaerobic culture preliminary no growth -No Acid fast Bacilli -Path shows ulcer with suppurative inflammation Plan: -Dressing removed -Flushed site with sterile saline and pat dry -Painted surgical wound with betadine and covered with Xeroform, 4x4 dry gauze, ABD pad, and Kerlix. Secured with ROWENA wrap. -All cultures show no growth but due to concern for how the bone looked recommend IV antibiotics - ID following and any recommendations appreciated -Will continue to monitor Qualifiers: Osteomyelitis type: unspecified type Qualified Code(s): M86.9 - Osteomyelitis, unspecified Subjective Principal diagnosis: s/p foot surgery Interval history: Post op day #5 1. Rotational flap greater than 10.1 sq cm, left foot, 2. Midtarsal amputation (Chopart), left foot, and 3. Incision and drainage abscess below fascia, left foot by Dr. Lee on 03/21/2019 Patient is alert and oriented x 3, resting in bed reports she recently felt like she was going to pass out, but reports she is feeling better now. She did have an EKG and x-ray prior to my entering the room. She denies any chest pain, shortness of breath, or calf pain. Patient denies any fever, chills, n/v/d. Dressing dry and intact. Objective - Vital Signs Vital Signs: Vital Signs Temp Pulse Resp BP Pulse Ox 03/26/19 13:10 98 F 80 20 129/65 96 03/26/19 11:04 98.6 F 83 16 116/76 98 03/26/19 06:30 98.4 F 83 16 128/76 96 03/26/19 05:04 17 03/26/19 03:59 98.2 F 76 124/73 96 03/25/19 22:46 98.0 F 72 16 143/83 96 03/25/19 18:39 98.1 F 72 17 139/86 94 03/25/19 15:10 97.6 F 86 16 126/82 96 Intake and Output 03/25/19 03/26/19 03/26/19 23:59 07:59 15:59 Intake Total 300 / 750 350 / 450 100 / 450 Output Total 300 / 1950 Balance 0 / -1200 350 / 450 100 / 450 Intake: IV Fluids 300 / 750 350 / 450 100 / 450 Zosyn 3.375 GM In 0.9 % Sodium 100 / 300 100 / 200 100 / 200 Chloride (Mini-Bag +) 100 ML @ 25 mls/hr IVPB Q8H SUDHIR Rx#: [id number] Vancocin 750 MG In 0.9 % Sodium 200 / 450 250 / 250 Chloride 250 ML @ 250 mls/hr IVPB Q12H SUDHIR Rx#:[id number] Output: Urine 300 / 1950 Other: Meal Breakfast Percent of Meal Consumed 90% # Voids 1 Weight 100.6 kg Blood Glucose* 204 219 134 Patient Weight 03/26/19 23:59 Weight 100.6 kg - Exam Exam: Constitutional: Alert, oriented x3, no acute distress noted Vascular: DP and PT palpable left foot. Capillary refill brisk to the left midfoot stump. Skin warm to touch. No pain with calf squeeze Neurological: Sensations diminished bilateral lower extremity Dermatology: Left forefoot surgical incision well coapted with sutures intact. Musculoskeletal: ROM of left ankle noted. - Lab Result Diagrams: 03/26/19 15:11 03/26/19 15:11 Labs: Abnormal lab results RBC 3.05 M/mcL (3.82-4.97) L 03/26/19 01:51 Hgb 8.9 g/dL (11.5-15.4) L 03/26/19 01:51 Hct 27.4 % (35.3-44.9) L 03/26/19 01:51 Plt Count 138 K/mcL (140-400) L 03/22/19 06:02 ESR 63 mm/hr (0-15) H 03/20/19 06:54 Sodium 133 mEq/L (136-145) L 03/19/19 11:59 Potassium 3.4 mEq/L (3.5-5.1) L 03/23/19 02:50 Chloride 110 mEq/L (98-107) H 03/26/19 01:51 Carbon Dioxide 22 mEq/L (23-29) L 03/25/19 02:04 BUN 22 mg/dL (6-20) H 03/24/19 08:29 1.46 mg/dL (0.60-1.20) H 03/26/19 01:51 Est GFR ( Amer) 45 (> 60) L 03/26/19 01:51 Est GFR (Non-Af Amer) 37 (> 60) L 03/26/19 01:51 Glucose 171 mg/dL (70-105) H 03/26/19 01:51 POC Glucose 219 mg/dL (70-99) H 03/26/19 07:13 13.3 % (-5.6) H 03/19/19 11:59 Calcium 8.3 mg/dL (8.6-10.3) L 03/26/19 01:51 12 mg/L (Less than 10) H 03/20/19 06:54 30 mg/dL (Neg-Trace) H 03/25/19 02:23 Small (Negative) H 03/25/19 02:23 Ur Squamous Epith Cells Moderate per lpf (None-Few) H 03/25/19 02:23 Vancomycin Trough 16 mcg/mL (5-10) H 03/26/19 01:00 Microbiology, Last 48 Hours 03/21/19 16:39 Anaerobic Culture - Final Surgery No anaerobes were recovered. 03/21/19 16:39 Surgical Biopsy Culture - Final Surgery 03/19/19 12:28 Blood Culture - Final Peripheral Venipuncture No growth. Final report. 03/19/19 11:59 Blood Culture - Final Peripheral Venipuncture No growth. Final report. - VTE Documentation of Mechanical Device: Intermittent pneumatic compression device Consult Discharge Plan - Plan Instructions: Cellulitis (GEN), Diabetic Foot Care (DC), Diabetes Mellitus Type 2 in Adults (DC), Basic Carbohydrate Counting (DC), Acute Wound Care (DC), Diabetic Foot Ulcers (DC) Referrals: Bernardino Burkett MD [Primary Care Provider] - Celeste Kim CNP [Advanced Practice Nurse] - 04/10/19 2:05 pm
[2019-03-26 15:45] LABS: Basophils % 0.3 %; Eosinophils # 0.4 K/mcL (0.0-0.6); Eosinophils % 5.9 %; Hematocrit 29.5 % (35.3-44.9); Hemoglobin 9.7 g/dL (11.5-15.4); Immature Granulocytes % 0.6 % (0-4); Lymphocytes # 1.1 K/mcL (0.6-4.6); Lymphocytes % 16.3 %; Mean Corpuscular HGB Conc 32.9 g/dL (31.6-35.5); Mean Corpuscular Hemoglobin 29.7 pg (28.0-33.3); Mean Corpuscular Volume 90.2 fL (83.0-100.0); Mean Platelet Volume 10.1 fL (9.4-12.4); Monocytes # 0.6 K/mcL (0.0-1.3); Monocytes % 8.6 %; Neutrophils # 4.6 K/mcL (1.6-8.9); Platelet Count 180 K/mcL (140-400); Red Blood Count 3.27 M/mcL (3.82-4.97); Red Cell Distribution Width 12.8 % (11.5-14.5); Segmented Neutrophils % 68.3 %
[2019-03-26 16:00] LABS: BUN/Creatinine Ratio 13 (6-26); Blood Urea Nitrogen 17 mg/dL (6-20); Calcium 9.1 mg/dL (8.6-10.3); Carbon Dioxide 23 mEq/L (23-29); Chloride 108 mEq/L (98-107); Glucose 144 mg/dL (70-105); Osmolality,Calculated 296 (280-300); Potassium 3.7 mEq/L (3.5-5.1); Sodium 141 mEq/L (136-145); Troponin I < 0.03 ng/mL (< 0.04); eGFR For Non-African Americans 44 (> 60)
--- NOTE | 2019-03-26 16:35 | Electrocardiograph Report ---
[address] [place], [place] [address] Test Date: 2019-03-26 Pat Name: Margi Amaya Department: 114 Room: [facility] Gender: F Medical Assistant Supervisor: KENY : 1960 Requested By: Alhaji De Leon Order Number: [id number] Reading MD: Femi Ferraro Measurements Intervals [place] Rate: 77 P: 54 GA: 159 QRS: -7 QRSD: 98 T: 70 QT: 413 QTc: 445 Interpretive Statements SINUS RHYTHM ANTERIOR MYOCARDIAL INFARCTION, OF INDETERMINATE AGE INFERIOR MYOCARDIAL INFARCTION, OF INDETERMINATE AGE Electronically Signed On 03-26-2019 16:33:56 EDT by Femi Ferraro
[2019-03-26] MEDS ORDERED: *HR* Heparin 5,000 UNIT/ML VIAL IVP ONE (17:34)
[2019-03-26] MEDS ORDERED: *HR* Heparin 5,000 UNIT/ML VIAL IVP PRN ×2 (17:34)
[2019-03-26] MEDS ORDERED: Heparin 25,000 UNIT/250 ML D5W 25,000 UNIT/250 ML IV.SOLN IVC SCH (17:45)
[2019-03-26] MEDS: Insulin DETEMIR 100 UNIT/ML X5UNITS SQ SCH (21:56)
[2019-03-27 02:34] LABS: Basophils % 0.3 %; Eosinophils # 0.3 K/mcL (0.0-0.6); Eosinophils % 5.4 %; Hematocrit 25.9 % (35.3-44.9); Hemoglobin 8.4 g/dL (11.5-15.4); Immature Granulocytes % 0.5 % (0-4); Lymphocytes # 1.3 K/mcL (0.6-4.6); Mean Corpuscular HGB Conc 32.4 g/dL (31.6-35.5); Mean Corpuscular Hemoglobin 29.5 pg (28.0-33.3); Mean Corpuscular Volume 90.9 fL (83.0-100.0); Mean Platelet Volume 10.3 fL (9.4-12.4); Monocytes # 0.6 K/mcL (0.0-1.3); Neutrophils # 3.9 K/mcL (1.6-8.9); Platelet Count 158 K/mcL (140-400); Red Blood Count 2.85 M/mcL (3.82-4.97); Red Cell Distribution Width 12.6 % (11.5-14.5); Segmented Neutrophils % 63.8 %
[2019-03-27 02:46] LABS: Calcium 8.3 mg/dL (8.6-10.3); Potassium 3.5 mEq/L (3.5-5.1)
[2019-03-27] MEDS: Piperacillin/Tazobactam 3.375 GM in 0.9 % Sodium Chloride Mini Bag 100 ML IVPB SCH (05:20)
[2019-03-27] MEDS: Aspirin Enteric Coated 81 MG Tablet PO SCH (07:47)
[2019-03-27] MEDS: Insulin LISPRO 300 UNITS/3 ML VIAL SQ SCH ×7 (07:48→20:38)
--- NOTE | 2019-03-27 10:49 | Infectious Disease Progress No ---
ID Progress Note Date of Encounter: 03/27/19 Time of Encounter: 10:47 - Subjective Subjective: Patient seen and examined. Yesterday's events noted. Had chills with rigors and nausea. CXR negative. Repeat blood cultures drawn and pending x 2. Postop day #6 status post I&D of the left foot. Cultures are negative. Bone pathology not sent. Patient states overall she feels okay today. Denies fevers, chills, rigors since yesterday. Denies chest pain, shortness of breath, or cough. Denies nausea, vomiting, diarrhea, or constipation. Denies abdominal pain or urinary complaints. States her appetite is good, but she does not like the food so she isn't eating much. Last bowel movement was yesterday. Denies oral thrush or skin lesions. Reports minimal pain at the surgical site. Reports right groin pain at [facility] site. - Objective CBC & Chem 7: 03/28/19 04:35 03/28/19 04:35 - Exam Vitals: Temp Pulse Resp BP Pulse Ox 97.7 F 72 15 144/88 94 03/27/19 07:06 03/27/19 07:06 03/27/19 07:06 03/27/19 07:06 03/27/19 07:06 Exam: Head: Atraumatic, normal inspection, normocephalic. Eye: EOMI, PERRLA, no scleral icterus noted. ENT: Mucous membranes moist. No odontogenic infection noted. Neck: Normal inspection, no meningismus. Respiratory: Clear to auscultation. No rales, respiratory distress, rhonchi, or wheezes noted. Cardiovascular: Regular rate and rhythm, S1 and S2 audible. No murmurs, rubs, or gallops. GI: Soft, nondistended, normal bowel sounds. Extremities:No joint swelling, pedal edema, or tenderness noted. Left foot dressing clean, dry, and intact. Right groin site soft without hematoma, erythema, or warmth. Back: Normal inspection. No vertebral tenderness noted. Neurological: Alert, oriented 3, no focal deficits. Psychiatric: normal affect, normal mood. Skin: Dry, intact, warm. Normal color. No rashes. - Assessment and Plan (1) Osteomyelitis of left foot Current Visit: Yes Status: Acute Location: Medial cuneiform, intermediate cuneiform, and navicular bone left foot. Causative organism: Unclear. Intra-Op cultures are negative, keep in mind the patient has been on antibiotics for approximately 48 hours prior to surgery No b one pathology sent. Likely secondary to chronic nonhealing surgical site. ESR elevated at 63, CRP 12. 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 Qualifiers: Osteomyelitis type: unspecified type Qualified Code(s): M86.9 - Osteomyelitis, unspecified SNOMED Code(s): 8720643062248388 (2) Foot abscess, left Current Visit: Yes Status: Acute Location: Left foot. Causative organism: Unclear. Likely secondary to chronic nonhealing surgical site. MRI of the left foot shows cellulitis of soft tissue stump with abscesses along the distal aspect of the soft tissue stump, the largest measuring 2.5 x 1.3 x 1.2 cm and the smaller abscess measuring 5 x 5 x 9 mm. Podiatry consulted and following. Status post I&D 03/21/2019 Currently on vancomycin, cefepime, and flagyl. SNOMED Code(s): 42831047069235192 (3) Cellulitis of left foot Current Visit: Yes Status: Acute Location: Left foot. Causative organism: Unclear. Likely secondary to chronic nonhealing surgical site. Currently on vancomycin, cefepime, and flagyl. SNOMED Code(s): 317314314 (4) Diabetes Current Visit: Yes Status: Acute Uncontrolled. Hemoglobin A1c 13.3%. Recommend aggressive glucose monitoring and control to promote wound healing and prevent reinfection. Qualifiers: Diabetes mellitus type: type 2 Diabetes mellitus buttermaker insulin use: with snf use Diabetes mellitus complication status: with skin complications Diabetes mellitus complication detail: with foot ulcer Qualified Code(s): E11.621 - Type 2 diabetes mellitus with foot ulcer; L97.509 - Non-pressure chronic ulcer of other part of unspecified foot with unspecified severity; Z79.4 - ferry terminal agent (current) use of insulin SNOMED Code(s): 30147186 (5) Coronary artery disease Current Visit: Yes Status: Chronic Cardiology consulted. Status post [facility] 03/25/19 that showed severe triple vessel disease. Qualifiers: Coronary Disease-Associated Artery/Lesion type: [place] artery [place] vs. transplanted heart: [place] heart Associated angina: without angina Qualified Code(s): I25.10 - Atherosclerotic heart disease of [place] coronary artery without angina pectoris SNOMED Code(s): 04592526 (6) Hypertension Current Visit: No Status: Chronic Qualifiers: Hypertension type: essential hypertension Qualified Code(s): I10 - Essential (primary) hypertension SNOMED Code(s): 50036972 (7) Acute kidney injury superimposed on CKD Current Visit: Yes Status: Resolved Creatinine improved. Likely secondary to contrast from [facility]. Continue to trend. Dose-adjust medications. Avoid nephrotoxins as able. SNOMED Code(s): 98015641 - Recommendations Recommendations: Wound care and activity restrictions per the podiatry team. Diabetes management per the primary team. Continue vancomycin IV. Pharmacy to dose. Goal trough approximately 15. Continue cefepime 2 grams IV Q12H. Continue flagyl 500mg PO TID. Duration of treatment depends on the clinical picture. Given that the patient is at high risk for limb loss, we will likely need to be aggressive with antibiotics. Unfortunately, we do not have positive cultures at this point so we will likely need to treat with broad-spectrum antibiotics for 4-6 weeks. Monitor renal function for drug toxicity and dose adjust antibiotics. government services professional to assist with discharge planning. Consult VAT for midline exchange to PICC. Will need weekly CBC, BUN/Cr, ESR, CRP, Vanc trough. Will need weekly PICC care per protocol. Follow up with ID 04/10/19 at 1405. - VTE Documentation of Mechanical Device: Intermittent pneumatic compression device Consult Discharge Plan - Plan Instructions: Cellulitis (GEN), Diabetic Foot Care (DC), Diabetes Mellitus Type 2 in Adults (DC), Basic Carbohydrate Counting (DC), Acute Wound Care (DC), Diabetic Foot Ulcers (DC) Referrals: Bernardino Burkett MD [Primary Care Provider] - Celeste Kim CNP [Advanced Practice Nurse] - 04/10/19 2:05 pm Prescriptions: Cefepime HCl/Dextrose, Iso-Osm [Cefepime 2 gm Injection] 2 gm IV Q12H 40 Days #80 [email or web address] Carvedilol [Coreg] 6.25 mg PO BIDWM #60 tablet metroNIDAZOLE [Flagyl] 500 mg PO TID #120 tablet Atorvastatin [Lipitor] 80 mg PO HS #60 tablet Clopidogrel [Plavix] 75 mg PO DAILY #30 tablet Vancomycin [Vancocin] 750 mg IV Q12H 40 Days #80 vial Lisinopril [Zestril] 2.5 mg PO DAILY #30 tablet - Attending Attestation I have personally performed a face to face evaluation on this patient. I have reviewed and agree with the care plan. History and Exam by me shows: Assessment and plan: 1.Osteomyelitis of the left foot causative organism not clear Intra-Op cultures no growth to date 2.Left foot abscess 2 status post I&D 03/21/2019 cultures negative 3.Cellulitis of the left foot 4.Diabetes mellitus type 2 5.Coronary artery disease 6.Hypertension Recommendations: Continue vancomycin IV. Pharmacy to dose. Goal trough approximately 15. Continue Zosyn 3.375 g IV every 8 hours. Duration of treatment depends on the clinical picture. Given that the patient is at high risk for limb loss, we will likely need to be aggressive with antibiotics. Unfortunately, we do not have positive cultures at this point so we will likely need to treat with broad-spectrum antibiotics for 4-6 weeks. We will discuss with podiatry. Monitor renal function for drug toxicity and dose adjust antibiotics.
[2019-03-27] MEDS: Cefepime HCl 2,000 MG in Water for inj. (sterile) 20 ML 20 ML IVP SCH ×2 (11:51→20:36)
[2019-03-27] MEDS: metroNIDAZOLE 500 MG TABLET PO SCH ×3 (11:52→20:36)
[2019-03-27] MEDS ORDERED: 0.9 % Sodium Chloride 1,000 ML IVC SCH (12:00)
--- NOTE | 2019-03-27 13:51 | Podiatry Progress Note ---
Date of Encounter: 03/27/19 Time of Encounter: 11:35 - Assessment and Plan (1) Foot abscess, left Current Visit: Yes Status: Acute Assessment: -Post op day #6 1. Rotational flap greater than 10.1 sq cm, left foot, 2. Midtarsal amputation (Chopart), left foot, and 3. Incision and drainage abscess below fascia, left foot by Dr. Lee on 03/21/2019 -Skin warm -No pain with calf squeeze -WBC 6.1 -Surgical biopsy culture and blood cultures final no growth -Anaerobic culture preliminary no growth -No Acid fast Bacilli -Path shows ulcer with suppurative inflammation Plan: -Do change dressing. -Limited weight bearing, use post op surgical shoe for weight bearing LLE -Follow up with Dr. Lee one week after discharge on office, call and schedu le appointment prior to discharge. -Will continue to monitor (2) Osteomyelitis of left foot Current Visit: Yes Status: Acute Assessment: -Post op day #6 1. Rotational flap greater than 10.1 sq cm, left foot, 2. Midtarsal amputation (Chopart), left foot, and 3. Incision and drainage abscess below fascia, left foot by Dr. Lee on 03/21/2019 -Skin warm -No pain with calf squeeze -WBC 6.1 -Surgical biopsy culture and blood cultures final no growth -Anaerobic culture preliminary no growth -No Acid fast Bacilli -Path shows ulcer with suppurative inflammation Plan: -Do change dressing. -Limited weight bearing, use post op surgical shoe for weight bearing LLE -Follow up with Dr. Lee one week after discharge on office, call and schedule appointment prior to discharge. -Will continue to monitor Qualifiers: Osteomyelitis type: unspecified type Qualified Code(s): M86.9 - Osteomyelitis, unspecified Subjective Principal diagnosis: s/p foot surgery Interval history: Post op day #6 1. Rotational flap greater than 10.1 sq cm, left foot, 2. Midtarsal amputation (Chopart), left foot, and 3. Incision and drainage abscess below fascia, left foot by Dr. Lee on 03/21/2019 Patient is alert and oriented 3 no acute distress noted. She is sitting in chair at bedside with legs in dependent position. She denies any dizziness, chest pain, shortness of breath, or calf pain. She does report some groin pain from her cath. She denies any fever chills nausea vomiting or diarrhea. Objective - Vital Signs Vital Signs: Vital Signs Temp Pulse Resp BP Pulse Ox 03/27/19 12:04 97.6 F 72 17 134/76 95 03/27/19 07:06 97.7 F 72 15 144/88 94 03/27/19 03:22 98.3 F 77 16 144/75 94 03/26/19 22:42 97.9 F 82 17 149/88 96 03/26/19 18:35 97.9 F 77 16 129/67 95 03/26/19 16:15 98.2 F 85 20 146/83 95 Intake and Output 03/26/19 03/27/19 03/27/19 23:59 07:59 15:59 Intake Total 750 / 1200 750 / 1390 640 / 1390 Output Total 200 / 200 Balance 550 / 1000 750 / 1390 640 / 1390 Intake: IV Fluids 350 / 800 350 / 350 Zosyn 3.375 GM In 0.9 % Sodium 100 / 300 100 / 100 Chloride (Mini-Bag +) 100 ML @ 25 mls/hr IVPB Q8H SUDHIR Rx#: [id number] Vancocin 750 MG In 0.9 % Sodium 250 / 500 250 / 250 Chloride 250 ML @ 250 mls/hr IVPB Q12H SUDHIR Rx#:[id number] Oral 400 / 400 400 / 1040 640 / 1040 Output: Urine 200 / 200 Other: Meal Breakfast Percent of Meal Consumed 100% Stool Size Small Moderate Stool Consistency loose loose Stool Color Brown Brown # Voids 1 1 1 Weight 100.5 kg Blood Glucose* 168 210 237 Patient Weight 03/27/19 23:59 Weight 100.5 kg - Exam Exam: Constitutional: Alert and oriented x 3, no acute distress noted. Vascular: Minimal edema above dressing, non-pitting, no pain with calf squeeze, skin warm to touch Neurological: Decreased protective sensation Dermatological: Dressing dry and intact, no strike through noted Musculoskeletal: Normal tone - Lab Result Diagrams: 03/27/19 02:10 03/27/19 02:10 Labs: Abnormal lab results RBC 2.85 M/mcL (3.82-4.97) L 03/27/19 02:10 Hgb 8.4 g/dL (11.5-15.4) L 03/27/19 02:10 Hct 25.9 % (35.3-44.9) L 03/27/19 02:10 Plt Count 138 K/mcL (140-400) L 03/22/19 06:02 ESR 63 mm/hr (0-15) H 03/20/19 06:54 Sodium 133 mEq/L (136-145) L 03/19/19 11:59 Potassium 3.4 mEq/L (3.5-5.1) L 03/23/19 02:50 Chloride 111 mEq/L (98-107) H 03/27/19 02:10 Carbon Dioxide 22 mEq/L (23-29) L 03/25/19 02:04 BUN 22 mg/dL (6-20) H 03/24/19 08:29 1.34 mg/dL (0.60-1.20) H 03/27/19 02:10 Est GFR ( Amer) 49 (> 60) L 03/27/19 02:10 Est GFR (Non-Af Amer) 41 (> 60) L 03/27/19 02:10 Glucose 164 mg/dL (70-105) H 03/27/19 02:10 POC Glucose 168 mg/dL (70-99) H 03/26/19 19:59 13.3 % (-5.6) H 03/19/19 11:59 Calcium 8.3 mg/dL (8.6-10.3) L 03/27/19 02:10 12 mg/L (Less than 10) H 03/20/19 06:54 30 mg/dL (Neg-Trace) H 03/25/19 02:23 Small (Negative) H 03/25/19 02:23 Ur Squamous Epith Cells Moderate per lpf (None-Few) H 03/25/19 02:23 Vancomycin Trough 16 mcg/mL (5-10) H 03/26/19 01:00 Microbiology, Last 48 Hours 03/26/19 15:11 Blood Culture - Preliminary Peripheral Venipuncture Culture is incubating and being continuously monitored for growth. Final report to follow. 03/26/19 15:11 Blood Culture - Preliminary Peripheral Venipuncture Culture is incubating and being continuously monitored for growth. Final report to follow. 03/21/19 16:39 Anaerobic Culture - Final Surgery No anaerobes were recovered. - VTE Documentation of Mechanical Device: Intermittent pneumatic compression device Consult Discharge Plan - Plan Instructions: Cellulitis (GEN), Diabetic Foot Care (DC), Diabetes Mellitus Type 2 in Adults (DC), Basic Carbohydrate Counting (DC), Acute Wound Care (DC), Diabetic Foot Ulcers (DC) Referrals: Bernardino Burkett MD [Primary Care Provider] - Celeste Kim CNP [Advanced Practice Nurse] - 04/10/19 2:05 pm
--- NOTE | 2019-03-27 14:56 | Internal Med Progress Note ---
<Annalisa Sandoval - Last Filed: 03/27/19 15:02> Hospitalist Progress Note - Encounter Date of Encounter: 03/27/19 Time of Encounter: 10:15 - Subjective Interval History: Patient seen and examined at bedside today. She has normal mood, good spirits. She admits to some pain in her right groin from the left heart catheter. She plans to do outpatient viability study up in [place] once her foot heals. She admits to a mild nonproductive dry cough and some loose stool. She denies nausea, vomiting, fever, chills, chest pain, shortness breath, abdominal pain, constipation, hematochezia, melena, dysuria, hematuria, calf pain, edema. - Exam Vitals: Temp Pulse Resp BP Pulse Ox 97.6 F 72 17 134/76 95 03/27/19 12:04 03/27/19 12:04 03/27/19 12:04 03/27/19 12:04 03/27/19 12:04 Exam: Gen.: Vitals noted. No acute distress. AAOx3, resting comfortably in chair, appropriate mood. HEENT: PERRL/EOMI, oropharynx clear, Normocephalic, atraumatic, MMM, poor dentition Cardiac: RRR, no murmur, +S1/S2, radial pulses 2+ and symmetrical Pulmonary: Diminished breath sounds bilaterally, no wheezes, rales or rhonchi, equal chest expansion, unlabored breathing Abdomen: soft, nontender, BS noted, no guarding, no palpable HSM Skin: warm and dry, dressing over left foot in place, no sign of bleeding or drainage. No erythema or edema of left lower extremity, no tenderness to palpation of left calf. Great growing shows clean bandage over left heart catheter site, no erythema, no tenderness to palpation. MSK: No joint swelling noted, gait no assessed while in bed. Non tender calf or clubbing Neuro: A&Ox3, moves all extremities, no focal deficits. Psych: Appropriate mood and behavior, AOx3, pleasant - Assessment and Plan (1) Osteomyelitis of left foot Current Visit: Yes Status: Acute Assessment and Plan: Presented from podiatry office with concern for osteomyelitis as well as abscess and cellulitis of left foot Status post transmetatarsal imitation of left foot in 2017 with surgery for nonhealing ulcer 10/2018 Left foot [id number] soft tissue swelling of stump of midfoot amputation, possible osteo-myelitis with cellulitis Left foot MRI-cellulitis of soft tissue stump with abscesses along distal aspect of soft tissue stump, largest measuring 2.51.31.2 cm, smaller 0.50.50.9 cm. Osteomyelitis of medial cuneiform, intermediate cuneiform and navicular bone with erosive changes and cortical destruction of the medial cuneiform bone. Postop day 6 of midtarsal amputation, incision and drainage, rotational skin flap- per op note, necrotic bone and soft tissue was noted cultures taken Blood cultures show no growth Surgical biopsy culture and blood cultures final no growth Anaerobic culture preliminary no growth No Acid fast Bacilli Continue vancomycin, cefepime, Flagyl for 6 weeks total (2) Cellulitis of left foot Current Visit: Yes Status: Acute Assessment and Plan: See above for management (3) Foot abscess, left Current Visit: Yes Status: Acute Assessment and Plan: See above for management (4) Acute kidney injury superimposed on CKD Current Visit: Yes Status: Acute Assessment and Plan: Continues to have AK I Creatinine elevated at 1.34 Secondary to antibiotics as well as contrast her left heart catheter Will give 1 L normal saline Encourage by mouth fluid intake Continue to avoid nephrotoxic agents and renally dose medications (5) Uncontrolled diabetes mellitus Current Visit: Yes Status: Chronic Assessment and Plan: Hemoglobin A1c 13.3 Continue basal insulin as well as sliding scale Will need close follow-up outpatient (6) Anemia Current Visit: Yes Status: Chronic Assessment and Plan: Continues to have slow downtrending of hemoglobin Hemoglobin currently 8.4. Denies melena, hematochezia chest via Continue to monitor Transfuse if less than 7 SCDs for anticoagulation (7) Coronary artery disease Current Visit: Yes Status: Acute Assessment and Plan: Patient had NSTEMI 10/2018 and refused left heart catheter at that time. Stress test 03/05/2019-gated EF of 39%, left ventricle dilated, large size moderate to severe intensity, primarily fixed inferior, inferior lateral and inferior septal perfusion defect suggestive of a prior infarct. There is mild mandy-infarct ischemia involving the inferior and inferior lateral segments. Medium to 5 severe intensity acute perfusion defect involving the apical segments and apex suggestive of prior infarct. Findings suggest obstructive multivessel coronary artery disease. Left heart catheter - chronic total occlusion of RCA, chronic total occlusion of LAD Continue aspirin, Plavix, atorvastatin, carvedilol, lisinopril Plans on outpatient viability study in [place] (8) Abnormal stress test Current Visit: Yes Status: Acute Assessment and Plan: Management as above DVT Prophylaxis: SCD - Time Spent with Patient Total time spent is greater than 50% in coordination of care (as documented) at patient's floor/unit and/or counseling patient: Internal Medicine: Result - Labs CBC & Chem 7: 03/27/19 02:10 03/27/19 02:10 Labs: Short CBC 03/26/19 03/27/19 Range/Units 15:11 02:10 WBC 6.8 6.1 (4.3-11.1) K/mcL Hgb 9.7 L 8.4 L (11.5-15.4) g/dL Hct 29.5 L 25.9 L (35.3-44.9) % Plt Count 180 158 (140-400) K/mcL Neutrophils # 4.6 3.9 (1.6-8.9) K/mcL BMP 03/26/19 03/27/19 15:11 02:10 Sodium 141 139 Potassium 3.7 3.5 Chloride 108 H 111 H Carbon Dioxide 23 23 BUN 17 20 Creatinine 1.26 H 1.34 H Glucose 144 H 164 H Calcium 9.1 8.3 L Cardiac Enzymes 03/26/19 Range/Units 15:11 Troponin I < 0.03 (< 0.04) ng/mL - VTE Documentation of Mechanical Device: Intermittent pneumatic compression device Consult Discharge Plan - Plan Instructions: Cellulitis (GEN), Diabetic Foot Care (DC), Diabetes Mellitus Type 2 in Adults (DC), Basic Carbohydrate Counting (DC), Acute Wound Care (DC), Diabetic Foot Ulcers (DC) Referrals: Bernardino Burkett MD [Primary Care Provider] - Celeste Kim CNP [Advanced Practice Nurse] - 04/10/19 2:05 pm <Tad De Leon - Last Filed: 03/27/19 17:22> Hospitalist Progress Note - Encounter Date of Encounter: 03/27/19 - Exam Vitals: Temp Pulse Resp BP Pulse Ox 98.8 F 79 15 156/66 95 03/27/19 15:55 03/27/19 15:55 03/27/19 15:55 03/27/19 15:55 03/27/19 15:55 - Assessment and Plan (1) Cellulitis of left foot Current Visit: Yes Status: Acute (2) Diabetes Current Visit: Yes Status: Acute (3) Osteomyelitis of left foot Current Visit: Yes Status: Acute (4) Foot abscess, left Current Visit: Yes Status: Acute (5) Abnormal stress test Current Visit: Yes Status: Acute (6) Coronary artery disease Current Visit: Yes Status: Acute (7) Acute kidney injury superimposed on CKD Current Visit: Yes Status: Acute (8) Anemia Current Visit: Yes Status: Chronic - Time Spent with Patient Total time spent is greater than 50% in coordination of care (as documented) at patient's floor/unit and/or counseling patient: Internal Medicine: Result - Labs CBC & Chem 7: 03/27/19 02:10 03/27/19 02:10 Labs: Short CBC 03/27/19 Range/Units 02:10 WBC 6.1 (4.3-11.1) K/mcL Hgb 8.4 L (11.5-15.4) g/dL Hct 25.9 L (35.3-44.9) % Plt Count 158 (140-400) K/mcL Neutrophils # 3.9 (1.6-8.9) K/mcL BMP 03/27/19 02:10 Sodium 139 Potassium 3.5 Chloride 111 H Carbon Dioxide 23 BUN 20 Creatinine 1.34 H Glucose 164 H Calcium 8.3 L - Attending Attestation I examined this patient and my medical decision-making was reviewed with the Resident Physician. I agree with the documented findings, disposition and treatment plan as described except to the extent set forth below. <Annalisa Sandoval - Last Filed: 03/27/19 15:02> (1) Osteomyelitis of left foot Qualifiers: Osteomyelitis type: unspecified type Qualified Code(s): M86.9 - Osteomyelitis, unspecified (5) Uncontrolled diabetes mellitus Qualifiers: Diabetes mellitus type: type 2 Glycemic state: with hyperglycemia Qualified Code(s): E11.65 - Type 2 diabetes mellitus with hyperglycemia (6) Anemia Qualifiers: Anemia type: unspecified type Qualified Code(s): D64.9 - Anemia, unspecified (7) Coronary artery disease Qualifiers: Coronary Disease-Associated Artery/Lesion type: [place] artery [place] vs. transplanted heart: [place] heart Associated angina: without angina Qualified Code(s): I25.10 - Atherosclerotic heart disease of [place] coronary artery without angina pectoris <Tad De Leon - Last Filed: 03/27/19 17:22> (2) Diabetes Qualifiers: Diabetes mellitus type: type 2 Diabetes mellitus intermediate project manager insulin use: with senior care use Diabetes mellitus complication status: with skin complications Diabetes mellitus complication detail: with foot ulcer Qualified Code(s): E11.621 - Type 2 diabetes mellitus with foot ulcer; L97.509 - Non-pressure chronic ulcer of other part of unspecified foot with unspecified severity; Z79.4 - computer terminal operator (current) use of insulin (3) Osteomyelitis of left foot Qualifiers: Osteomyelitis type: unspecified type Qualified Code(s): M86.9 - Osteomyelitis, unspecified (6) Coronary artery disease Qualifiers: Coronary Disease-Associated Artery/Lesion type: [place] artery [place] vs. transplanted heart: [place] heart Associated angina: without angina Qualified Code(s): I25.10 - Atherosclerotic heart disease of [place] coronary artery without angina pectoris (8) Anemia Qualifiers: Anemia type: unspecified type Qualified Code(s): D64.9 - Anemia, unspecified
[2019-03-27] MEDS: *HR* Heparin 5,000 UNIT/ML VIAL SQ SCH (20:30)
[2019-03-27] MEDS: Insulin DETEMIR 100 UNIT/ML X5UNITS SQ SCH (20:38)
[2019-03-27 21:38] LABS: Hematocrit 26.5 % (35.3-44.9); Hemoglobin 8.7 g/dL (11.5-15.4)
[2019-03-28 04:52] LABS: Basophils % 0.4 %; Eosinophils # 0.4 K/mcL (0.0-0.6); Eosinophils % 6.8 %; Hematocrit 26.9 % (35.3-44.9); Hemoglobin 8.6 g/dL (11.5-15.4); Immature Granulocytes % 0.5 % (0-4); Lymphocytes # 1.1 K/mcL (0.6-4.6); Lymphocytes % 20.3 %; Mean Corpuscular Hemoglobin 29.4 pg (28.0-33.3); Mean Corpuscular Volume 91.8 fL (83.0-100.0); Mean Platelet Volume 10.1 fL (9.4-12.4); Monocytes # 0.5 K/mcL (0.0-1.3); Monocytes % 8.4 %; Neutrophils # 3.6 K/mcL (1.6-8.9); Platelet Count 148 K/mcL (140-400); Red Blood Count 2.93 M/mcL (3.82-4.97); Segmented Neutrophils % 63.6 %
[2019-03-28 05:11] LABS: Calcium 8.3 mg/dL (8.6-10.3); Potassium 3.5 mEq/L (3.5-5.1)
[2019-03-28] MEDS: *HR* Heparin 5,000 UNIT/ML VIAL SQ SCH (06:41)
--- NOTE | 2019-03-28 08:51 | Discharge Summary ---
<Annalisa Sandoval - Last Filed: 03/28/19 12:07> - NOTES TO OUTPATIENT PROVIDER Notes to Outpatient Provider: For osteomyelitis patient to be discharged on 6 weeks total of metronidazole, vancomycin, cefepime. She will have home rhina with PICC care, nursing, wound care as well as PT/OT. She is to follow up with podiatry in one week. For coronary artery disease she is to be discharged on Plavix, atorvastatin, carvedilol, lisinopril. Patient underwent left heart catheter which revealed severe three-vessel disease, with chronic total occlusion of RCA and LAD to be medically managed. Patient to have outpatient viability study. Her hemoglobin A1c was elevated at 13.3, will need close follow-up for improved glucose control for her diabetes. Orders not resulted at time of discharge: Pending orders 03/21/19 16:30 AFB Culture, Tissue [TB] Routine AFB Smear [TB] Routine Fungal Culture [MYC] Routine 03/26/19 15:11 Culture,Blood [BC] Stat 03/28/19 10:00 Hemoglobin and Hematocrit [HEME] Q6H Date of Encounter: 03/28/19 Time of Encounter: 08:50 - Discharge Diagnosis (1) Osteomyelitis of left foot Priority: Primary Status: Acute Qualifiers: Osteomyelitis type: unspecified type Qualified Code(s): M86.9 - Osteomyelitis, unspecified (2) Cellulitis of left foot Priority: Secondary Status: Acute (3) Foot abscess, left Priority: Secondary Status: Acute (4) Acute kidney injury superimposed on CKD Priority: Secondary Status: Resolved (5) Uncontrolled diabetes mellitus Priority: Secondary Status: Chronic Qualifiers: Diabetes mellitus type: type 2 Glycemic state: with hyperglycemia Qualified Code(s): E11.65 - Type 2 diabetes mellitus with hyperglycemia (6) Anemia Priority: Secondary Status: Chronic Qualifiers: Anemia type: unspecified type Qualified Code(s): D64.9 - Anemia, u nspecified (7) Coronary artery disease Priority: Secondary Status: Chronic Qualifiers: Coronary Disease-Associated Artery/Lesion type: alutiiq artery [place] vs. transplanted heart: alutiiq heart Associated angina: without angina Qualified Code(s): I25.10 - Atherosclerotic heart disease of alutiiq coronary artery without angina pectoris (8) Abnormal stress test Priority: Secondary Status: Acute Hospital course: Ms. Amaya is a 59 year old female who presented from Dr. Sloan's office with concern for osteomyelitis and foot ulcer of left foot. PMH of diabetes, hyperlipidemia, hypertension as well as a prior left transmetatarsal amputation. Left foot x-ray showed worsening soft tissue swelling of stump of midfoot amputation, possible osteo-myelitis with cellulitis. Left foot MRI showed cellulitis of soft tissue stump with abscesses along distal aspect of soft tissue stump, largest measuring 2.51.31.2 cm, smaller 0.50.50.9 cm. Osteomyelitis of medial cuneiform, intermediate cuneiform and navicular bone with erosive changes and cortical destruction of the medial cuneiform bone.She is poorly controlled diabetic with hemoglobin A1c at 13.3. She had also had a previously abnormal stress test which showed a large sized, moderate to severe intensity, primarily fixed inferior, inferolateral, and inferoseptal perfusion defect suggestive of a prior infarct. There is mild mandy-infarct ischemia involving the inferior and inferolateral segments, SDS 5. Medium to large sized, severe intensity to absent perfusion defect involving the apical segments and apex suggestive of a prior infarct. Findings suggests obstructive multi- vessel CAD. Podiatry, cardiology and infectious disease were consulted. Cardiology initially recommended a left heart catheter prior to podiatry surgical management however the patient refused and wanted to wait until after midtarsal amputation. Patient underwent midtarsal amputation, incision and drainage as well as rotational skin flap on 03/21/19. Blood cultures, acid-fast stain, anaerobic culture, surgical biopsy cultures were negative. For antibiotic coverage, patient to be on vancomycin, cefepime, Flagyl for 6 weeks on recommendation of infectious disease for her osteomyelitis. Patient did undergo a left heart catheter on 03/25/19 which showed severe three-vessel disease, chronic total occlusion of LAD and proximal RCA as well as severe global left ventricular dysfunction with an ejection fraction of 30%. Cardiology recommends medical management of aspirin, Plavix, atorvastatin, carvedilol, lisinopril as well as follow-up for outpatient viability study. Patient had been downtrending hemoglobin secondary to bruising from her wound which has stabilized. Patient also developed an AK I secondary to antibiotics as well as contrast used during left heart catheter which has resolved. Patient stable and well to discharge to home with home health care for IV antibiotics, wound care, PT/OT. Patient advised to follow-up with cardiology, podiatry and PCP. Discharge discussed with: patient - Time Spent with Patient Total time spent providing and/or coordinating discharge services: - Discharge Medications Prescriptions: New metroNIDAZOLE [Flagyl] 500 mg PO TID #120 tablet Carvedilol [Coreg] 6.25 mg PO BIDWM #60 tablet Atorvastatin [Lipitor] 80 mg PO HS #60 tablet Clopidogrel [Plavix] 75 mg PO DAILY #30 tablet Lisinopril [Zestril] 2.5 mg PO DAILY #30 tablet Vancomycin [Vancocin] 750 mg IV Q12H 40 Days #80 vial Cefepime HCl/Dextrose, Iso-Osm [Cefepime 2 gm Injection] 2 gm IV Q12H 40 Days #80 froz.pigmesha Chavez [JASPREET] 1 each .ROUTE AD #1 each Continued Aspirin [Lo-Dose Aspirin EC] 81 mg PO DAILY Insulin Glargine,Hum.rec.anlog [Lantus Solostar] 20 unit SQ HS Insulin ASPART [Novolog Flexpen] 10 unit SQ TID Home Medications: Aspirin [Lo-Dose Aspirin EC] 81 mg PO DAILY 10/13/18 [History] Insulin ASPART [Novolog Flexpen] 10 unit SQ TID 10/13/18 [History] Insulin Glargine,Hum.rec.anlog [Lantus Solostar] 20 unit SQ HS 10/13/18 [History] Atorvastatin [Lipitor] 80 mg PO HS #60 tablet 03/28/19 [Rx] Carvedilol [Coreg] 6.25 mg PO BIDWM #60 tablet 03/28/19 [Rx] Cefepime HCl/Dextrose, Iso-Osm [Cefepime 2 gm Injection] 2 gm IV Q12H 40 Days #80 froz.piggy 03/28/19 [Rx] Clopidogrel [Plavix] 75 mg PO DAILY #30 tablet 03/28/19 [Rx] Lisinopril [Zestril] 2.5 mg PO DAILY #30 tablet 03/28/19 [Rx] Vancomycin [Vancocin] 750 mg IV Q12H 40 Days #80 vial 03/28/19 [Rx] Jaspreet [JASPREET] 1 each .ROUTE AD #1 each 03/28/19 [Rx] metroNIDAZOLE [Flagyl] 500 mg PO TID #120 tablet 03/28/19 [Rx] Allergies/Adverse Reactions: Allergy/AdvReac Type Severity Reaction Status Date / Time No Known Allergies Allergy Verified 10/13/18 10:19 Date of admission: 03/19/19 17:44 Primary care physician: Bernardino Burkett MD Consults: 03/19/19 15:19 Consult to Cardiology [CONS] Stat Comment: Consulting Provider: Cardiology [address] [address] Reason for Consult: need clearence for Foot surgery..She does have abnormal stress test Time Notified: 15:20 Call Completed: Yes 03/19/19 15:21 Consult to Podiatry [CONS] Routine Consulting Provider: [facility] Reason for Consult: Left foot abscess Time Notified: 15:21 Call Completed: Yes 03/20/19 16:39 Consult to Infectious Diseases [CONS] Routine Consulting Provider: Infectious Disease [facility] Reason for Consult: Osteomyelitis, need for 6 weeks antibiotics, surgery this evening for left foot abscesses. Currently on vancomycin and zosyn Call Completed: No 03/24/19 08:35 Consult to Invasive Line Access Team [CONS] Routine Reason for Consult: limited vascular access Line Type: EPIV 03/26/19 11:25 Consult to Invasive Line Access Team [CONS] Routine Reason for Consult: Picc Line Insertion Line Type: PICC 03/26/19 22:02 Consult to Stonemason Supervisor [CONS] Routine Reason for SW Consult: home set up Discharging clinician: Annalisa Sandoval Anticipated date of discharge: 03/28/19 - Constitutional Vitals: Temp Pulse Resp BP Pulse Ox 98.8 F 76 18 145/84 96 03/28/19 07:11 03/28/19 07:11 03/28/19 07:11 03/28/19 07:11 03/28/19 07:11 General appearance: Present: cooperative, A&O X 3, no acute distress, answers questions appropriately Exam: Gen.: Vitals noted. No acute distress. AAOx3, resting comfortably in chair with left leg elevated, pleasant HEENT: PERRL/EOMI, oropharynx clear, Normocephalic, atraumatic, MMM, poor dentition Cardiac: RRR, no murmur, +S1/S2, radial pulses 2+ and symmetrical Pulmonary: Diminished but clear breath sounds bilaterally, no wheezes, rales or rhonchi, equal chest expansion, unlabored breathing Abdomen: soft, nontender, BS noted, no guarding, no palpable HSM Skin: warm and dry, dressing over left foot in place, no sign of bleeding or drainage. Trace edema of left lower extremity, no erythema of left lower extremity, no tenderness to palpation of left calf. Great growing shows clean bandage over left heart catheter site, no erythema, no tenderness to palpation. MSK: No joint swelling noted, gait no assessed while in bed. Non tender calf or clubbing Neuro: A&Ox3, moves all extremities, no focal deficits. Psych: Appropriate mood and behavior, AOx3, pleasant - Patient Status Disposition: Home, Self-Care Condition: Fair Functional capacity at discharge: independent ambulation Overall status at discharge: patient is progressing back to baseline - Discharge Instructions Instructions: Cellulitis (GEN), Diabetic Foot Care (DC), Diabetes Mellitus Type 2 in Adults (DC), Basic Carbohydrate Counting (DC), Acute Wound Care (DC), Diabetic Foot Ulcers (DC) Follow Up With: Dangelo Lee DPM [Partnered Physician] - 04/04/19 8:30 am Celeste Kim CNP [Advanced Practice Nurse] - 04/10/19 2:05 pm Additional Instructions: [facility] cardiology - phone [phone] - please call to make an appt to get established for further followup. Non weight bearing to left foot. Keep left foot dressing clean and dry - wear postop shoe. Use walker to help maintain NWB to left foot.Finish entire antibiotic prescription, even if you feel better. Go to nearest emergency room for any new or worsening symptoms. - Diet and Activity Activity: increase activity as tolerated Diet: diabetic diet - VTE Documentation of Mechanical Device: Intermittent pneumatic compression device <Tad De Leon - Last Filed: 03/28/19 16:31> Orders not resulted at time of discharge: Pending orders 03/21/19 16:30 AFB Culture, Tissue [TB] Routine AFB Smear [TB] Routine Fungal Culture [MYC] Routine 03/26/19 15:11 Culture,Blood [BC] Stat 03/28/19 10:00 Hemoglobin and Hematocrit [HEME] Q6H Date of Encounter: 03/28/19 - Discharge Diagnosis (1) Cellulitis of left foot Status: Acute (2) Diabetes Status: Acute Qualifiers: Diabetes mellitus type: type 2 Diabetes mellitus shelter insulin use: with intermediate accountant use Diabetes mellitus complication status: with skin complications Diabetes mellitus complication detail: with foot ulcer Qualified Code(s): E11.621 - Type 2 diabetes mellitus with foot ulcer; L97.509 - Non-pressure chronic ulcer of other part of unspecified foot with unspecified severity; Z79.4 - FPC (current) use of insulin (3) Osteomyelitis of left foot Status: Acute Qualifiers: Osteomyelitis type: unspecified type Qualified Code(s): M86.9 - Osteomyelitis, unspecified (4) Foot abscess, left Status: Acute (5) Abnormal stress test Status: Acute (6) Coronary artery disease Status: Chronic Qualifiers: Coronary Disease-Associated Artery/Lesion type: alutiiq artery [place] vs. transplanted heart: alutiiq heart Associated angina: without angina Qualified Code(s): I25.10 - Atherosclerotic heart disease of alutiiq coronary artery without angina pectoris (7) Acute kidney injury superimposed on CKD Status: Resolved (8) Anemia Status: Chronic Qualifiers: Anemia type: unspecified type Qualified Code(s): D64.9 - Anemia, unspecified Hospital course: Ms. Amaya is a 59 year old female - Time Spent with Patient Total time spent providing and/or coordinating discharge services: Date of admission: 03/19/19 17:44 Primary care physician: Bernardino Burkett MD Consults: 03/19/19 15:19 Consult to Cardiology [CONS] Stat Comment: Consulting Provider: Cardiology [address] Reason for Consult: need clearence for Foot surgery..She does have abnormal stress test Time Notified: 15:20 Call Completed: Yes 03/19/19 15:21 Consult to Podiatry [CONS] Routine Consulting Provider: [facility] Reason for Consult: Left foot abscess Time Notified: 15:21 Call Completed: Yes 03/20/19 16:39 Consult to Infectious Diseases [CONS] Routine Consulting Provider: Infectious [facility] Reason for Consult: Osteomyelitis, need for 6 weeks antibiotics, surgery this evening for left foot abscesses. Currently on vancomycin and zosyn Call Completed: No 03/24/19 08:35 Consult to Invasive Line Access Team [CONS] Routine Reason for Consult: limited vascular access Line Type: EPIV 03/26/19 11:25 Consult to Invasive Line Access Team [CONS] Routine Reason for Consult: Picc Line Insertion Line Type: PICC 03/26/19 22:02 Consult to Stonemason Supervisor [CONS] Routine Reason for SW Consult: home set up - Constitutional Vitals: Temp Pulse Resp BP Pulse Ox 98.5 F 81 16 138/86 97 03/28/19 10:00 03/28/19 10:00 03/28/19 10:00 03/28/19 10:00 03/28/19 10:00 - Attending Attestation I examined this patient and my medical decision-making was reviewed with the Resident Physician. I agree with the documented findings, disposition and treatment plan as described except to the extent set forth below.
[2019-03-28] MEDS: Insulin LISPRO 300 UNITS/3 ML VIAL SQ SCH ×4 (09:47→13:13)
[2019-03-28] MEDS: Cefepime HCl 2,000 MG in Water for inj. (sterile) 20 ML 20 ML IVP SCH (09:49)
[2019-03-28] MEDS: metroNIDAZOLE 500 MG TABLET PO SCH ×2 (09:50→15:02)
[2019-03-28] MEDS: Aspirin Enteric Coated 81 MG Tablet PO SCH (09:50)
--- NOTE | 2019-03-28 10:47 | Podiatry Progress Note ---
Date of Encounter: 03/28/19 Time of Encounter: 10:35 - Assessment and Plan (1) Foot abscess, left Current Visit: Yes Status: Acute Assessment: -Post op day #7 1. Rotational flap greater than 10.1 sq cm, left foot, 2. Midtarsal amputation (Chopart), left foot, and 3. Incision and drainage abscess below fascia, left foot by Dr. Lee on 03/21/2019 -Skin warm -No pain with calf squeeze -WBC 5.6 -Surgical biopsy culture and blood cultures final no growth -Anaerobic culture preliminary no growth -No Acid fast Bacilli -Path shows ulcer with suppurative inflammation Plan: -Do not change dressing. -Limited weight bearing, use post op surgical shoe for weight bearing LLE, please obtain post op surgical shoe -Follow up with Dr. Lee one week after discharge in office, call and schedule appointment prior to discharge. (2) Osteomyelitis of left foot Current Visit: Yes Status: Acute Assessment: -Post op day #7 1. Rotational flap greater than 10.1 sq cm, left foot, 2. Midtarsal amputation (Chopart), left foot, and 3. Incision and drainage abscess below fascia, left foot by Dr. Lee on 03/21/2019 -Skin warm -No pain with calf squeeze -WBC 5.6 -Surgical biopsy culture and blood cultures final no growth -Anaerobic culture preliminary no growth -No Acid fast Bacilli -Path shows ulcer with suppurative inflammation Plan: -Do not change dressing. -Limited weight bearing, use post op surgical shoe for weight bearing LLE, please obtain surgical shoe -Follow up with Dr. Lee one week after discharge on office, call and schedule appointment prior to discharge. Qualifiers: Osteomyelitis type: unspecified type Qualified Code(s): M86.9 - Osteomyelitis, unspecified Subjective Principal diagnosis: s/p foot surgery Interval history: Post op day #7 1. Rotational flap greater than 10.1 sq cm, left foot, 2. Midtarsal amputation (Chopart), left foot, and 3. Incision and drainage abscess below fascia, left foot by Dr. Lee on 03/21/2019 Patient is alert and oriented 3 no acute distress noted. She is sitting in chair at bedside with legs elevated on foot stool. She denies any dizziness, chest pain, shortness of breath, or calf pain. She denies any fever chills nausea vomiting or diarrhea. Objective - Vital Signs Vital Signs: Vital Signs Temp Pulse Resp BP Pulse Ox 03/28/19 07:11 98.8 F 76 18 145/84 96 03/28/19 03:52 98.0 F 83 17 143/80 95 03/27/19 20:08 98.2 F 72 19 146/80 97 03/27/19 15:55 98.8 F 79 15 156/66 95 03/27/19 12:04 97.6 F 72 17 134/76 95 Intake and Output 03/27/19 03/28/19 03/28/19 23:59 07:59 15:59 Intake Total 420 / 2280 250 / 270 20 / 270 Balance 420 / 2280 250 / 270 20 / 270 Intake: IV Fluids 270 / 640 250 / 270 20 / 270 Maxipime 2,000 MG In Water for 20 / 20 inj. (sterile) 20 ML @ 300 mls/ hr IVP Q12H [facility] Rx#:[id number] Vancocin 750 MG In 0.9 % Sodium 250 / 500 250 / 250 Chloride 250 ML @ 250 mls/hr IVPB Q12H SUDH[facility] Rx#:[id number] Oral 150 / 1640 Other: Stool Size Moderate Stool Consistency liquid Stool Color Brown Blood Glucose* 126 222 - Exam Exam: Constitutional: Alert and oriented x 3, no acute distress noted. Vascular: Minimal swelling above dressing, non-pitting, no pain with calf sq ueeze, skin warm to touch Neurological: Decreased protective sensation Dermatological: Dressing dry and intact, no strike through noted Musculoskeletal: Normal tone - Lab Result Diagrams: 03/28/19 04:35 03/28/19 04:35 Labs: Abnormal lab results RBC 2.93 M/mcL (3.82-4.97) L 03/28/19 04:35 Hgb 8.6 g/dL (11.5-15.4) L 03/28/19 04:35 Hct 26.9 % (35.3-44.9) L 03/28/19 04:35 Plt Count 138 K/mcL (140-400) L 03/22/19 06:02 ESR 63 mm/hr (0-15) H 03/20/19 06:54 Sodium 133 mEq/L (136-145) L 03/19/19 11:59 Potassium 3.4 mEq/L (3.5-5.1) L 03/23/19 02:50 Chloride 111 mEq/L (98-107) H 03/28/19 04:35 Carbon Dioxide 21 mEq/L (23-29) L 03/28/19 04:35 BUN 22 mg/dL (6-20) H 03/24/19 08:29 1.34 mg/dL (0.60-1.20) H 03/27/19 02:10 Est GFR ( Amer) 57 (> 60) L 03/28/19 04:35 Est GFR (Non-Af Amer) 47 (> 60) L 03/28/19 04:35 Glucose 192 mg/dL (70-105) H 03/28/19 04:35 POC Glucose 168 mg/dL (70-99) H 03/26/19 19:59 13.3 % (-5.6) H 03/19/19 11:59 Calcium 8.3 mg/dL (8.6-10.3) L 03/28/19 04:35 12 mg/L (Less than 10) H 03/20/19 06:54 30 mg/dL (Neg-Trace) H 03/25/19 02:23 Small (Negative) H 03/25/19 02:23 Ur Squamous Epith Cells Moderate per lpf (None-Few) H 03/25/19 02:23 Vancomycin Trough 16 mcg/mL (5-10) H 03/27/19 13:37 Microbiology, Last 48 Hours 03/26/19 15:11 Blood Culture - Preliminary Peripheral Venipuncture Culture is incubating and being continuously monitored for growth. Final report to follow. 03/26/19 15:11 Blood Culture - Preliminary Peripheral Venipuncture Culture is incubating and being continuously monitored for growth. Final report to follow. 03/21/19 16:39 Anaerobic Culture - Final Surgery No anaerobes were recovered. - VTE Documentation of Mechanical Device: Intermittent pneumatic compression device Consult Discharge Plan - Plan Instructions: Cellulitis (GEN), Diabetic Foot Care (DC), Diabetes Mellitus Type 2 in Adults (DC), Basic Carbohydrate Counting (DC), Acute Wound Care (DC), Diabetic Foot Ulcers (DC) Referrals: Bernardino Burkett MD [Primary Care Provider] - Celeste Kim CNP [Advanced Practice Nurse] - 04/10/19 2:05 pm Prescriptions: Cefepime HCl/Dextrose, Iso-Osm [Cefepime 2 gm Injection] 2 gm IV Q12H 40 Days #80 froz.lishagy Carvedilol [Coreg] 6.25 mg PO BIDWM #60 tablet metroNIDAZOLE [Flagyl] 500 mg PO TID #120 tablet Atorvastatin [Lipitor] 80 mg PO HS #60 tablet Clopidogrel [Plavix] 75 mg PO DAILY #30 tablet Vancomycin [Vancocin] 750 mg IV Q12H 40 Days #80 vial Lisinopril [Zestril] 2.5 mg PO DAILY #30 tablet
[2019-03-28 11:46] VITALS: BP 138/86
--- NOTE | 2019-03-28 11:49 | Physician Discharge Referral ---
Home Health/Hosp Referral Info Transfer to: Home Health Provider in Charge Post Discharge: PCP - Diagnosis (1) Osteomyelitis of left foot Priority: Primary Status: Acute (2) Cellulitis of left foot Priority: Secondary Status: Acute (3) Foot abscess, left Priority: Secondary Status: Acute (4) Acute kidney injury superimposed on CKD Priority: Secondary Status: Resolved (5) Uncontrolled diabetes mellitus Priority: Secondary Status: Chronic (6) Anemia Priority: Secondary Status: Chronic (7) Coronary artery disease Priority: Secondary Status: Chronic (8) Abnormal stress test Priority: Secondary Status: Acute - Respiratory Orders Smoking Cessation: Smoking cessation has been advised. For more information, call the [place] [employer] Quit Line at [phone]-NOW. - Services Needed Following services are medically necessary services: Nursing, Home Health Aide, Physical Therapy, Occupational Therapy Home Care Orders: For osteomyelitis, patient will require 6 weeks of IV antibiotics, she will need PICC care and nursing care for IV infusions. Vancomycin trough levels will be needed weekly. She also needs wound care and PT/OT. - Transfer Medications Prescriptions: Cefepime HCl/Dextrose, Iso-Osm [Cefepime 2 gm Injection] 2 gm IV Q12H 40 Days #80 froz.piggy Carvedilol [Coreg] 6.25 mg PO BIDWM #60 tablet metroNIDAZOLE [Flagyl] 500 mg PO TID #120 tablet Atorvastatin [Lipitor] 80 mg PO HS #60 tablet Clopidogrel [Plavix] 75 mg PO DAILY #30 tablet Vancomycin [Vancocin] 750 mg IV Q12H 40 Days #80 vial Lisinopril [Zestril] 2.5 mg PO DAILY #30 tablet Home Medications: Aspirin [Lo-Dose Aspirin EC] 81 mg PO DAILY 10/13/18 [History] Insulin ASPART [Novolog Flexpen] 10 unit SQ TID 10/13/18 [History] Insulin Glargine,Hum.rec.anlog [Lantus Solostar] 20 unit SQ HS 10/13/18 [ History] Atorvastatin [Lipitor] 80 mg PO HS #60 tablet 03/28/19 [Rx] Carvedilol [Coreg] 6.25 mg PO BIDWM #60 tablet 03/28/19 [Rx] Cefepime HCl/Dextrose, Iso-Osm [Cefepime 2 gm Injection] 2 gm IV Q12H 40 Days #80 froz.piggy 03/28/19 [Rx] Clopidogrel [Plavix] 75 mg PO DAILY #30 tablet 03/28/19 [Rx] Lisinopril [Zestril] 2.5 mg PO DAILY #30 tablet 03/28/19 [Rx] Vancomycin [Vancocin] 750 mg IV Q12H 40 Days #80 vial 03/28/19 [Rx] metroNIDAZOLE [Flagyl] 500 mg PO TID #120 tablet 03/28/19 [Rx] Allergies/Adverse Reactions: Allergy/AdvReac Type Severity Reaction Status Date / Time No Known Allergies Allergy Verified 10/13/18 10:19 Certification: Further, I certify that my clinical findings support that this patient is homebound (i.e. absences from home require considerable and taxing effort and are for medical reasons or denominational services or infrequently or short duration when for other reasons) because: Homebound Reason: Post-surgery restriction and or conditions limit ability to leave home Attestation: My signature below is to certify that this patient is under my care and that I, or nurse practitioner, or a physician's periodontal assistant working with me, has a [id number] encounter with this patient.
--- NOTE | 2019-03-28 13:30 | Infectious Disease Progress No ---
ID Progress Note Date of Encounter: 03/28/19 Time of Encounter: 11:55 - Subjective Subjective: Patient seen and examined. No acute events noted overnight. Postop day #7 status post I&D of the left foot. Cultures are negative. Bone pathology not sent. Patient states overall she feels okay today. Denies fevers, chills, rigors since yesterday. Denies chest pain, shortness of breath, or cough. Denies nausea, vomiting, diarrhea, or constipation. Denies abdominal pain or urinary complaints. States her appetite is good, but she does not like the food so she isn't eating much. Last bowel movement was yesterday. Denies oral thrush or skin lesions. Reports minimal pain at the surgical site. Reports right groin pain at [facility] site. - Objective CBC & Chem 7: 03/28/19 04:35 03/28/19 04:35 - Exam Vitals: Temp Pulse Resp BP Pulse Ox 98.5 F 81 16 138/86 97 03/28/19 10:00 03/28/19 10:00 03/28/19 10:00 03/28/19 10:00 03/28/19 10:00 Exam: Head: Atraumatic, normal inspection, normocephalic. Eye: EOMI, PERRLA, no scleral icterus noted. ENT: Mucous membranes moist. No odontogenic infection noted. Neck: Normal inspection, no meningismus. Respiratory: Clear to auscultation. No rales, respiratory distress, rhonchi, or wheezes noted. Cardiovascular: Regular rate and rhythm, S1 and S2 audible. No murmurs, rubs, or gallops. GI: Soft, nondistended, normal bowel sounds. Extremities:No joint swelling, pedal edema, or tenderness noted. Left foot dressing clean, dry, and intact. Right groin site soft without hematoma, erythema, or warmth. Back: Normal inspection. No vertebral tenderness noted. Neurological: Alert, oriented 3, no focal deficits. Psychiatric: normal affect, normal mood. Skin: Dry, intact, warm. Normal color. No rashes. - Assessment and Plan (1) Osteomyelitis of left foot Current Visit: Yes Status: Acute Location: Medial cuneiform, intermediate cuneiform, and navicular bone left foot. Causative organism: Unclear. Intra-Op cultures are negative, keep in mind the patient has been on antibiotics for approximately 48 hours prior to surgery No bone pathology sent. Likely secondary to chronic nonhealing surgical site. ESR elevated at 63, CRP 12. 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 Qualifiers: Osteomyelitis type: unspecified type Qualified Code(s): M86.9 - Osteomyelitis, unspecified SNOMED Code(s): 7930276004543542 (2) Foot abscess, left Current Visit: Yes Status: Acute Location: Left foot. Causative organism: Unclear. Likely secondary to chronic nonhealing surgical site. MRI of the left foot shows cellulitis of soft tissue stump with abscesses along the distal aspect of the soft tissue stump, the largest measuring 2.5 x 1.3 x 1.2 cm and the smaller abscess measuring 5 x 5 x 9 mm. Podiatry consulted and following. Status post I&D 03/21/2019 Currently on vancomycin, cefepime, and flagyl. SNOMED Code(s): 46850652161921887 (3) Cellulitis of left foot Current Visit: Yes Status: Acute LLocation: Left foot. Causative organism: Unclear. Improved. Likely secondary to chronic nonhealing surgical site. Currently on vancomycin, cefepime, and flagyl. SNOMED Code(s): 486283137 (4) Diabetes Current Visit: Yes Status: Acute Uncontrolled. Hemoglobin A1c 13.3%. Recommend aggressive glucose monitoring and control to promote wound healing and prevent reinfection. Qualifiers: Diabetes mellitus type: type 2 Diabetes mellitus nursing home insulin use: with buttermaker continuous churn use Diabetes mellitus complication status: with skin complications Diabetes mellitus complication detail: with foot ulcer Qualified Code(s): E11.621 - Type 2 diabetes mellitus with foot ulcer; L97.509 - Non-pressure chronic ulcer of other part of unspecified foot with unspecified severity; Z79.4 - oil heaterman (current) use of insulin SNOMED Code(s): 57688164 (5) Coronary artery disease Current Visit: Yes Status: Chronic Cardiology consulted. Status post [facility] 03/25/19 that showed severe triple vessel disease. Qualifiers: Coronary Disease-Associated Artery/Lesion type: nondalton artery [place] vs. transplanted heart: nondalton heart Associated angina: without angina Qualified Code(s): I25.10 - Atherosclerotic heart disease of nondalton coronary artery without angina pectoris SNOMED Code(s): 39549834 (6) Hypertension Current Visit: No Status: Chronic Qualifiers: Hypertension type: essential hypertension Qualified Code(s): I10 - Essential (primary) hypertension SNOMED Code(s): 82415942 (7) Acute kidney injury superimposed on CKD Current Visit: Yes Status: Resolved Creatinine improved. Likely secondary to contrast from [facility]. Continue to trend. Dose-adjust medications. Avoid nephrotoxins as able. SNOMED Code(s): 09359329 - Recommendations Recommendations: Wound care and activity restrictions per the podiatry team. Diabetes management per the primary team. Continue vancomycin IV. Pharmacy to dose. Goal trough approximately 15. Continue cefepime 2 grams IV Q12H. Continue flagyl 500mg PO TID. Duration of treatment depends on the clinical picture. Given that the patient is at high risk for limb loss, we will likely need to be aggressive with antibiotics. Unfortunately, we do not have positive cultures at this point so we will likely need to treat with broad-spectrum antibiotics for 4-6 weeks. Monitor renal function for drug toxicity and dose adjust antibiotics. senior director creative services to assist with discharge planning. Consult VAT for midline exchange to PICC. Will need weekly CBC, BUN/Cr, ESR, CRP, Vanc trough. Will need weekly PICC care per protocol. Follow up with ID 04/10/19 at 1405. - VTE Documentation of Mechanical Device: Intermittent pneumatic compression device Consult Discharge Plan - Plan Instructions: Cellulitis (GEN), Diabetic Foot Care (DC), Diabetes Mellitus Type 2 in Adults (DC), Basic Carbohydrate Counting (DC), Acute Wound Care (DC), Diabetic Foot Ulcers (DC) Additional Instructions: [facility] cardiology - phone [phone] - please call to make an appt to get established for further followup. Non weight bearing to left foot. Keep left foot dressing clean and dry - wear postop shoe. Use walker to help maintain NWB to left foot.Finish entire antibiotic prescription, even if you feel better. Go to nearest emergency room for any new or worsening symptoms. Referrals: Dangelo Lee DPM [Partnered Physician] - 04/04/19 8:30 am Celeste Kim TEXTILE COLORIST FORMULATOR [Advanced Practice Nurse] - 04/10/19 2:05 pm Prescriptions: Cefepime HCl/Dextrose, Iso-Osm [Cefepime 2 gm Injection] 2 gm IV Q12H 40 Days #80 [email or web address] Carvedilol [Coreg] 6.25 mg PO BIDWM #60 tablet metroNIDAZOLE [Flagyl] 500 mg PO TID #120 tablet Atorvastatin [Lipitor] 80 mg PO HS #60 tablet Clopidogrel [Plavix] 75 mg PO DAILY #30 tablet Vancomycin [Vancocin] 750 mg IV Q12H 40 Days #80 vial Walker [WALKER] 1 each .ROUTE AD #1 each Lisinopril [Zestril] 2.5 mg PO DAILY #30 tablet - Attending Attestation I have personally performed a face to face evaluation on this patient. I have reviewed and agree with the care plan. History and Exam by me shows: Assessment and plan: 1.Osteomyelitis of the left foot causative organism not clear Intra-Op cultures no growth to date 2.Left foot abscess 2 status post I&D 03/21/2019 cultures negative 3.Cellulitis of the left foot 4.Diabetes mellitus type 2 5.Coronary artery disease 6.Hypertension Recommendations: Continue vancomycin IV. Pharmacy to dose. Goal trough approximately 15. Continue cefepime 2 grams IV Q12H. Continue flagyl 500mg PO TID. Will need weekly CBC, BUN/Cr, ESR, CRP, Vanc trough. Will need weekly PICC care per protocol. Follow up with ID 04/10/19 at 1405.
[2019-03-28] MEDS ORDERED: Aminoglycoside Consult 1 EACH MC ONE (16:39)
== END 2019-03-28 16:40 | disposition home or self-care (01) | DRG 305 ==
LOC: 2SOUTHHOLD 10:19 → EMEROOARM 10:19 → 2SOUTHHOLD 17:06 → SUATTDRO 17:44 → 3NENU 03-20 17:02
PROVIDERS: ADMIT Internal Medicine Nephrology; ATTEND Student in an Organized Health Care Education/Training Program

== ENCOUNTER 2021-08-19 07:28 | Observation (INO) ==
[2021-08-19] MEDS ORDERED: lisinopriL 5 MG TABLET PO ONE (08:01)
[2021-08-19] MEDS ORDERED: carvediloL 6.25 MG TABLET PO ONE (08:01)
[2021-08-19 08:34] LABS: Basophils % 0.4 %; Eosinophils # 0.1 K/mcL (0.0-0.6); Eosinophils % 1.2 %; Hematocrit 46.1 % (35.3-44.9); Immature Granulocytes % 0.4 % (0-4); Lymphocytes # 1.2 K/mcL (0.6-4.6); Lymphocytes % 24.4 %; Mean Corpuscular HGB Conc 32.5 g/dL (31.6-35.5); Mean Corpuscular Hemoglobin 28.7 pg (28.0-33.3); Mean Corpuscular Volume 88.1 fL (83.0-100.0); Mean Platelet Volume 11.4 fL (9.4-12.4); Monocytes # 0.4 K/mcL (0.0-1.3); Monocytes % 8.2 %; Neutrophils # 3.3 K/mcL (1.6-8.9); Platelet Count 172 K/mcL (140-400); Red Blood Count 5.23 M/mcL (3.82-4.97); Red Cell Distribution Width 13.2 % (11.5-14.5); Segmented Neutrophils % 65.4 %
[2021-08-19] MEDS ORDERED: Furosemide 20 MG/2 ML VIAL IVP ONE ×2 (08:42→14:11)
[2021-08-19 09:01] LABS: Albumin 3.3 g/dL (3.5-5.7); Albumin/Globulin Ratio 0.9 (1.1-2.2); Bilirubin,Direct 0.2 mg/dL (0.0-0.2); Bilirubin,Indirect 0.5 mg/dL (0.0-1.0); Bilirubin,Total 0.7 mg/dL (0.3-1.0); Calcium 8.9 mg/dL (8.6-10.3); Globulin 3.5 g/dL (2.4-3.5); Potassium 3.3 mEq/L (3.5-5.1); Total Protein 6.8 g/dL (6.4-8.9); Troponin I 0.06 ng/mL (< 0.04)
[2021-08-19] MEDS ORDERED: Mag Hydrox/Al Hydrox/Simeth 30 ML UDC PO PRN (09:37)
[2021-08-19] MEDS ORDERED: Ondansetron ODT 4 MG TAB.RAPDIS SL PRN (09:37)
[2021-08-19] MEDS ORDERED: Naloxone 0.4 MG/ML INJ IVP PRN (09:37)
[2021-08-19] MEDS ORDERED: Melatonin 3 MG TABLET PO PRN (09:37)
[2021-08-19] MEDS ORDERED: D5% in Water 1,000 ML IVC PRN (09:50)
[2021-08-19] MEDS ORDERED: *HR* Dextrose 50 % in Water (Syg) 50 ML SYRINGE IVP PRN (09:50)
[2021-08-19] MEDS ORDERED: Dextrose Gel 15 GM/37.5 ML TUBE PO PRN ×2 (09:50)
[2021-08-19 10:41] LABS: Magnesium 1.5 mg/dL (1.6-2.6)
[2021-08-19 11:47] LABS: Adenovirus Not Detected (Not Detect); Bordetella Pertussis Not Detected (Not Detect); Chlamydophila pneumoniae Not Detected (Not Detect); Coronavirus 229E Not Detected (Not Detect); Coronavirus HKU1 Not Detected (Not Detect); Coronavirus NL63 Not Detected (Not Detect); Coronavirus OC43 Not Detected (Not Detect); Human Metapneumovirus Not Detected (Not Detect); Human Rhinovirus/Enterovirus Not Detected (Not Detect); Influenza A Subtype 2009 H1 Not Detected (Not Detect); Influenza B Not Detected (Not Detect); Mycoplasma pneumoniae Not Detected (Not Detect); Parainfluenza Virus 1 Not Detected (Not Detect); Parainfluenza Virus 2 Not Detected (Not Detect); Parainfluenza Virus 3 Not Detected (Not Detect); Parainfluenza Virus 4 Not Detected (Not Detect); Respiratory Syncytial Virus Not Detected (Not Detect); SARS-CoV-2 Not Detected (Not Detect)
[2021-08-19] MEDS ORDERED: Perflutren Lipid Microsphere 1.3 ML in 0.9 % Sodium Chloride 8.7 ML IVP PRN (12:47)
[2021-08-19] MEDS: Insulin LISPRO 300 UNITS/3 ML VIAL SUBQ SCH ×3 (13:17→20:22)
[2021-08-19] MEDS: Furosemide 40 MG/4 ML VIAL IVP SCH (15:04)
[2021-08-19] MEDS: Aspirin 81 MG TAB.CHEW PO SCH (15:09)
[2021-08-19] MEDS: carvediloL 6.25 MG TABLET PO SCH (17:13)
[2021-08-19] MEDS: *HR* Heparin 5,000 UNIT/ML VIAL SQ SCH (17:18)
[2021-08-20 01:53] LABS: Hematocrit 41.3 % (35.3-44.9); Hemoglobin 13.6 g/dL (11.5-15.4); Mean Corpuscular HGB Conc 32.9 g/dL (31.6-35.5); Mean Corpuscular Hemoglobin 29.2 pg (28.0-33.3); Mean Corpuscular Volume 88.6 fL (83.0-100.0); Mean Platelet Volume 10.9 fL (9.4-12.4); Platelet Count 147 K/mcL (140-400); Red Blood Count 4.66 M/mcL (3.82-4.97); Red Cell Distribution Width 13.2 % (11.5-14.5); White Blood Count 3.8 K/mcL (4.3-11.1)
[2021-08-20 02:09] LABS: Calcium 8.5 mg/dL (8.6-10.3); Magnesium 1.8 mg/dL (1.6-2.6)
[2021-08-20] MEDS: *HR* Heparin 5,000 UNIT/ML VIAL SQ SCH ×2 (06:01→17:18)
[2021-08-20] MEDS: Furosemide 40 MG/4 ML VIAL IVP SCH (08:02)
[2021-08-20] MEDS: Insulin LISPRO 300 UNITS/3 ML VIAL SUBQ SCH ×4 (08:02→21:13)
[2021-08-20] MEDS: Aspirin 81 MG TAB.CHEW PO SCH (08:02)
[2021-08-20] MEDS: carvediloL 6.25 MG TABLET PO SCH ×2 (08:02→16:13)
[2021-08-20] MEDS ORDERED: Furosemide 40 MG/4 ML VIAL IVP SCH (09:00)
[2021-08-20] MEDS: Magnesium Oxide 400 MG TABLET PO SCH (11:08)
[2021-08-20] MEDS: Insulin DETEMIR 100 UNIT/ML X5UNITS SUBQ SCH (21:14)
[2021-08-21 05:04] LABS: Basophils % 0.5 %; Eosinophils # 0.1 K/mcL (0.0-0.6); Eosinophils % 3.3 %; Hematocrit 45.3 % (35.3-44.9); Hemoglobin 14.2 g/dL (11.5-15.4); Immature Granulocytes % 0.3 % (0-4); Lymphocytes # 1.1 K/mcL (0.6-4.6); Lymphocytes % 30.2 %; Mean Corpuscular HGB Conc 31.3 g/dL (31.6-35.5); Mean Corpuscular Hemoglobin 28.4 pg (28.0-33.3); Mean Corpuscular Volume 90.6 fL (83.0-100.0); Mean Platelet Volume 11.5 fL (9.4-12.4); Monocytes # 0.4 K/mcL (0.0-1.3); Monocytes % 10.9 %; Platelet Count 136 K/mcL (140-400); Red Cell Distribution Width 13.6 % (11.5-14.5); Segmented Neutrophils % 54.8 %; White Blood Count 3.7 K/mcL (4.3-11.1)
[2021-08-21 05:41] LABS: Calcium 8.4 mg/dL (8.6-10.3); Magnesium 1.8 mg/dL (1.6-2.6); Potassium 3.8 mEq/L (3.5-5.1)
[2021-08-21] MEDS: *HR* Heparin 5,000 UNIT/ML VIAL SQ SCH ×2 (06:31→17:23)
[2021-08-21] MEDS: carvediloL 6.25 MG TABLET PO SCH ×2 (08:09→16:38)
[2021-08-21] MEDS: Aspirin 81 MG TAB.CHEW PO SCH (08:09)
[2021-08-21] MEDS: Magnesium Oxide 400 MG TABLET PO SCH (08:09)
[2021-08-21] MEDS: Insulin LISPRO 300 UNITS/3 ML VIAL SUBQ SCH ×4 (08:10→20:08)
[2021-08-21] MEDS: Insulin DETEMIR 100 UNIT/ML X5UNITS SUBQ SCH (20:03)
[2021-08-22] MEDS: *HR* Heparin 5,000 UNIT/ML VIAL SQ SCH (05:26)
[2021-08-22 05:48] LABS: Basophils % 0.5 %; Eosinophils # 0.2 K/mcL (0.0-0.6); Eosinophils % 4.7 %; Hematocrit 40.1 % (35.3-44.9); Immature Granulocytes % 0.5 % (0-4); Lymphocytes % 27.4 %; Mean Corpuscular HGB Conc 31.2 g/dL (31.6-35.5); Mean Corpuscular Hemoglobin 28.7 pg (28.0-33.3); Mean Platelet Volume 10.6 fL (9.4-12.4); Monocytes # 0.4 K/mcL (0.0-1.3); Monocytes % 11.5 %; Platelet Count 123 K/mcL (140-400); Red Blood Count 4.36 M/mcL (3.82-4.97); Red Cell Distribution Width 13.6 % (11.5-14.5); Segmented Neutrophils % 55.4 %; White Blood Count 3.7 K/mcL (4.3-11.1)
[2021-08-22 05:49] LABS: Hemoglobin 12.5 g/dL (11.5-15.4)
[2021-08-22 06:11] LABS: Calcium 8.4 mg/dL (8.6-10.3); Potassium 3.7 mEq/L (3.5-5.1)
[2021-08-22] MEDS: Insulin LISPRO 300 UNITS/3 ML VIAL SUBQ SCH ×2 (07:34→12:23)
[2021-08-22] MEDS: Magnesium Oxide 400 MG TABLET PO SCH (07:35)
[2021-08-22] MEDS: carvediloL 6.25 MG TABLET PO SCH (07:35)
[2021-08-22] MEDS: Aspirin 81 MG TAB.CHEW PO SCH (07:35)
[2021-08-22] MEDS ORDERED: Spironolactone 12.5 MG TABLET PO SCH (09:00)
[2021-08-22 11:31] VITALS: BP 152/90; PULSE 72; TEMP 97.6; O2SAT 91
[2021-08-23] MEDS ORDERED: Furosemide 40 MG TABLET PO SCH (09:00)
== END 2021-08-22 14:33 | disposition home or self-care (01) ==
LOC: SUATTDRO → 3ANU 07:28 → EMEROOARM 07:28 → SUATTDRO 12:51 → 3ANU 14:31
PROVIDERS: ADMIT Family Medicine; ATTEND Internal Medicine

== ENCOUNTER 2021-08-25 13:03 | Inpatient (IN) ==
[2021-08-25] MEDS ORDERED: Furosemide 40 MG/4 ML VIAL IVP ONE (13:07)
[2021-08-25 14:12] LABS: Basophils % 0.8 %; Eosinophils # 0.1 K/mcL (0.0-0.6); Eosinophils % 2.5 %; Hematocrit 42.6 % (35.3-44.9); Hemoglobin 13.7 g/dL (11.5-15.4); Immature Granulocytes % 0.3 % (0-4); Lymphocytes # 0.9 K/mcL (0.6-4.6); Lymphocytes % 22.6 %; Mean Corpuscular HGB Conc 32.2 g/dL (31.6-35.5); Mean Corpuscular Hemoglobin 28.6 pg (28.0-33.3); Mean Corpuscular Volume 88.9 fL (83.0-100.0); Mean Platelet Volume 10.8 fL (9.4-12.4); Monocytes # 0.3 K/mcL (0.0-1.3); Monocytes % 8.7 %; Neutrophils # 2.6 K/mcL (1.6-8.9); Platelet Count 131 K/mcL (140-400); Red Blood Count 4.79 M/mcL (3.82-4.97); Red Cell Distribution Width 13.6 % (11.5-14.5); Segmented Neutrophils % 65.1 %; White Blood Count 3.9 K/mcL (4.3-11.1)
[2021-08-25] MEDS ORDERED: cefTRIAXone 1,000 MG in 0.9 % Sodium Chloride Mini Bag 100 ML IVPB ONE (14:15)
[2021-08-25] MEDS ORDERED: Azithromycin 500 MG in 0.9 % Sodium Chloride 250 ML IVPB ONE (14:15)
[2021-08-25 15:41] LABS: Calcium 8.8 mg/dL (8.6-10.3); Potassium 3.9 mEq/L (3.5-5.1); Troponin I 0.05 ng/mL (< 0.04)
[2021-08-25] MEDS ORDERED: Naloxone 0.4 MG/ML INJ IVP PRN (16:43)
[2021-08-25] MEDS ORDERED: Melatonin 3 MG TABLET PO PRN (16:43)
[2021-08-25] MEDS ORDERED: Vancomycin 1,250 MG/262.5 ML IV.SOLN IVPB SCH (18:00)
[2021-08-25] MEDS: Cefepime HCl 1,000 MG in Water for inj. (sterile) 10 ML IVP SCH ×2 (18:47)
[2021-08-25] MEDS ORDERED: D5% in Water 1,000 ML IVC PRN (21:27)
[2021-08-25] MEDS ORDERED: *HR* Dextrose 50 % in Water (Syg) 50 ML SYRINGE IVP PRN (21:27)
[2021-08-25] MEDS ORDERED: Dextrose Gel 15 GM/37.5 ML TUBE PO PRN ×2 (21:27)
[2021-08-25] MEDS: Gabapentin 300 MG CAPSULE PO SCH ×2 (21:35→21:59)
[2021-08-25] MEDS: Insulin LISPRO 300 UNITS/3 ML VIAL SUBQ SCH (22:20)
[2021-08-25 23:29] LABS: Bilirubin,Urine Negative (Negative); Blood,Urine Small (Negative); Clarity,Urine Clear (Clear); Color,Urine Colorless (Yellow); Glucose,Urine (UA) 50 mg/dL (Normal); Ketones,Urine Negative (Negative); Leukocyte Esterase,Urine Negative (Negative); Nitrite,Urine Negative (Negative); PH,Urine 6.5 pH Units (5.0-8.0); Protein,Urine 100 mg/dL (Neg-Trace); Urobilinogen,Urine Normal (Normal); WBC,Urine 0-3 per hpf (0-3)
[2021-08-26 04:41] LABS: Basophils % 1.1 %; Eosinophils # 0.2 K/mcL (0.0-0.6); Eosinophils % 4.3 %; Hematocrit 38.4 % (35.3-44.9); Immature Granulocytes % 0.3 % (0-4); Lymphocytes # 0.7 K/mcL (0.6-4.6); Lymphocytes % 18.5 %; Mean Corpuscular Hemoglobin 28.1 pg (28.0-33.3); Mean Corpuscular Volume 90.8 fL (83.0-100.0); Mean Platelet Volume 10.8 fL (9.4-12.4); Monocytes # 0.4 K/mcL (0.0-1.3); Monocytes % 10.5 %; Neutrophils # 2.3 K/mcL (1.6-8.9); Platelet Count 105 K/mcL (140-400); Red Blood Count 4.23 M/mcL (3.82-4.97); Red Cell Distribution Width 13.5 % (11.5-14.5); Segmented Neutrophils % 65.3 %; White Blood Count 3.5 K/mcL (4.3-11.1)
[2021-08-26 04:42] LABS: Hemoglobin 11.9 g/dL (11.5-15.4)
[2021-08-26 04:59] LABS: Calcium 8.6 mg/dL (8.6-10.3); Chol/HDL Ratio 3.1 (0-4.9); Magnesium 1.5 mg/dL (1.6-2.6); Potassium 3.7 mEq/L (3.5-5.1)
[2021-08-26] MEDS: Cefepime HCl 1,000 MG in Water for inj. (sterile) 10 ML IVP SCH ×2 (05:15→16:20)
[2021-08-26] MEDS: carvediloL 6.25 MG TABLET PO SCH ×2 (08:29→16:20)
[2021-08-26] MEDS: lisinopriL 5 MG TABLET PO SCH (08:29)
[2021-08-26] MEDS: Aspirin Enteric Coated 81 MG Tablet PO SCH (08:30)
[2021-08-26] MEDS: Furosemide 40 MG TABLET PO SCH (08:30)
[2021-08-26] MEDS: Insulin LISPRO 300 UNITS/3 ML VIAL SUBQ SCH ×4 (08:30→19:39)
[2021-08-26] MEDS: Gabapentin 300 MG CAPSULE PO SCH ×3 (08:32→19:37)
[2021-08-26] MEDS: Magnesium Oxide 400 MG TABLET PO SCH ×2 (11:07→19:34)
[2021-08-26 11:10] LABS: Estimated Average Glucose 298 mg/dl
[2021-08-26] MEDS: Vancomycin 1,500 MG/265 ML IV.SOLN IVPB SCH (16:20)
[2021-08-26] MEDS: Insulin DETEMIR 100 UNIT/ML X5UNITS SUBQ SCH (19:48)
[2021-08-27 01:59] LABS: Basophils % 0.6 %; Eosinophils # 0.1 K/mcL (0.0-0.6); Eosinophils % 4.1 %; Hematocrit 38.4 % (35.3-44.9); Hemoglobin 12.2 g/dL (11.5-15.4); Immature Granulocytes % 0.3 % (0-4); Lymphocytes # 0.7 K/mcL (0.6-4.6); Lymphocytes % 20.1 %; Mean Corpuscular HGB Conc 31.8 g/dL (31.6-35.5); Mean Corpuscular Hemoglobin 28.8 pg (28.0-33.3); Mean Corpuscular Volume 90.8 fL (83.0-100.0); Monocytes # 0.4 K/mcL (0.0-1.3); Monocytes % 11.1 %; Neutrophils # 2.2 K/mcL (1.6-8.9); Platelet Count 112 K/mcL (140-400); Red Blood Count 4.23 M/mcL (3.82-4.97); Red Cell Distribution Width 13.3 % (11.5-14.5); Segmented Neutrophils % 63.8 %; White Blood Count 3.4 K/mcL (4.3-11.1)
[2021-08-27 02:10] LABS: BUN/Creatinine Ratio 18 (6-26); Blood Urea Nitrogen 29 mg/dL (6-20); Calcium 8.6 mg/dL (8.6-10.3); Carbon Dioxide 28 mEq/L (23-29); Chloride 104 mEq/L (98-107); Glucose 193 mg/dL (70-105); Magnesium 1.5 mg/dL (1.6-2.6); Osmolality,Calculated 299 (280-300); Potassium 3.8 mEq/L (3.5-5.1); Sodium 139 mEq/L (136-145); eGFR For African Americans 39 (> 60); eGFR For Non-African Americans 33 (> 60)
[2021-08-27] MEDS: Cefepime HCl 1,000 MG in Water for inj. (sterile) 10 ML IVP SCH ×2 (05:10→16:59)
[2021-08-27] MEDS: Magnesium Oxide 400 MG TABLET PO SCH ×2 (09:01→20:47)
[2021-08-27] MEDS: Insulin LISPRO 300 UNITS/3 ML VIAL SUBQ SCH ×4 (09:02→20:44)
[2021-08-27] MEDS: carvediloL 6.25 MG TABLET PO SCH ×2 (09:02→16:59)
[2021-08-27] MEDS: Gabapentin 300 MG CAPSULE PO SCH ×3 (09:02→20:52)
[2021-08-27] MEDS: Aspirin Enteric Coated 81 MG Tablet PO SCH (09:02)
[2021-08-27] MEDS: lisinopriL 5 MG TABLET PO SCH (09:02)
[2021-08-27] MEDS: Furosemide 40 MG TABLET PO SCH (09:02)
[2021-08-27] MEDS: *HR* Enoxaparin 40 MG/0.4 ML SYRINGE SQ SCH (11:49)
[2021-08-27 15:07] LABS: C-Reactive Protein < 5 mg/L (Less than 10)
[2021-08-27] MEDS: Vancomycin 1,500 MG/265 ML IV.SOLN IVPB SCH (17:00)
[2021-08-27] MEDS: Insulin DETEMIR 100 UNIT/ML X5UNITS SUBQ SCH (20:47)
[2021-08-28 02:44] LABS: Basophils % 0.8 %; Eosinophils # 0.2 K/mcL (0.0-0.6); Eosinophils % 5.6 %; Immature Granulocytes % 0.5 % (0-4); Lymphocytes # 0.8 K/mcL (0.6-4.6); Lymphocytes % 20.3 %; Mean Corpuscular HGB Conc 32.4 g/dL (31.6-35.5); Mean Corpuscular Hemoglobin 29.4 pg (28.0-33.3); Mean Corpuscular Volume 90.7 fL (83.0-100.0); Monocytes # 0.4 K/mcL (0.0-1.3); Monocytes % 10.4 %; Neutrophils # 2.3 K/mcL (1.6-8.9); Platelet Count 118 K/mcL (140-400); Red Blood Count 4.08 M/mcL (3.82-4.97); Red Cell Distribution Width 13.2 % (11.5-14.5); Segmented Neutrophils % 62.4 %; White Blood Count 3.8 K/mcL (4.3-11.1)
[2021-08-28 03:07] LABS: Calcium 8.3 mg/dL (8.6-10.3); Magnesium 1.8 mg/dL (1.6-2.6); Potassium 3.9 mEq/L (3.5-5.1)
[2021-08-28 03:49] VITALS: TEMP 97.9; O2SAT 96
[2021-08-28] MEDS: Cefepime HCl 1,000 MG in Water for inj. (sterile) 10 ML IVP SCH (05:29)
[2021-08-28 07:13] VITALS: BP 157/81; PULSE 73
[2021-08-28] MEDS: Gabapentin 300 MG CAPSULE PO SCH ×2 (08:14→10:13)
[2021-08-28] MEDS: Aspirin Enteric Coated 81 MG Tablet PO SCH (08:20)
[2021-08-28] MEDS: carvediloL 6.25 MG TABLET PO SCH (08:20)
[2021-08-28] MEDS: Insulin LISPRO 300 UNITS/3 ML VIAL SUBQ SCH ×2 (08:20→10:54)
[2021-08-28] MEDS: *HR* Enoxaparin 40 MG/0.4 ML SYRINGE SQ SCH (08:20)
[2021-08-28] MEDS: Magnesium Oxide 400 MG TABLET PO SCH (08:20)
[2021-08-28] MEDS: lisinopriL 5 MG TABLET PO SCH (10:05)
[2021-08-28] MEDS: Furosemide 40 MG TABLET PO SCH (10:05)
== END 2021-08-28 13:00 | disposition home health service (06) | DRG 194 ==
LOC: EMEROOARM 13:03 → 2ANU 13:03 → INTOOBSV 19:19 → OBSVTOIN 19:19 → SUATTDRO 19:19 → 2ANU 20:13
PROVIDERS: ADMIT Family Medicine; ATTEND Hospitalist